=== PATIENT | male | born 1960 | race American Indian/Alaskan Native ===

== ENCOUNTER 2020-07-28 09:33 | Emergency (ER) | payer OTHER ==
[2020-07-28 09:57] VITALS: BP 138/87
--- NOTE | 2020-07-28 10:15 | Emergency Department Report ---
HPI - General Chief Complaint: Allergic Reaction Time Seen by Provider: 07/28/20 10:10 ED Past Medical Hx - Past Medical History Previous Medical History?: Yes Hx Hypertension: Yes - Surgical History Past Surgical History?: Yes Additional Surgical History: Broken left jaw - Social History Smoking Status: Never Smoker Substance Use Type: Alcohol ED Review of Systems ROS: Stated complaint: ALLERGIC REACTION Other details as noted in HPI Physical Exam - Physical Exam Vital Signs: Vital Signs 07/28/20 09:55 Temperature 99.1 F Pulse Rate 82 Respiratory 20 Rate Blood Pressure 138/87 O2 Sat by Pulse 98 Oximetry ED Course Vital Signs 07/28/20 09:55 Temperature 99.1 F Pulse Rate 82 Respiratory 20 Rate Blood Pressure 138/87 O2 Sat by Pulse 98 Oximetry Critical care attestation.: If time is entered above; I have spent that time in minutes in the direct care of this critically ill patient, excluding procedure time. ED Disposition Condition: Stable
[2020-07-28] MEDS ORDERED: methylPREDNISolone Sod Succinate 125 MG/2 ML INJ IM ONE (10:24)
--- NOTE | 2020-07-28 10:30 | Emergency Department Report ---
ED Allergic Reaction HPI - General Chief complaint: Allergic Reaction Stated complaint: ALLERGIC REACTION Time Seen by Provider: 07/28/20 10:10 Source: patient Mode of arrival: Ambulatory Limitations: No Limitations - History of Present Illness Initial Comments: 60 year old male with pmhx of HTN presents to ED with c/o allergic reaction. Patient states that 3 days ago he dyed his vu using a dye from [id number]. He states that he has never used that brand before. He states that about an hour or 2 after rinsing the dye he started having ir ritation to the skin beneath his vu. He states that the next day he decided to shave his vu off completely after which the irritation got worse and he just started developing increasing itching, redness, swelling to his vu area as well as his lips. He also reports yellowish clear drainage from the area mild drainage. He denies any pain he states that she has been itchy. He did take 2 Benadryl's today with some mild relief. He denies any tongue or throat swelling. He denies any difficulty breathing he denies any cough wheezing or any other symptoms at this time. MD Complaint: allergic reaction, facial swelling, other (facial rash ) -: Gradual (3 days ago ) Exposure: other (vu dye ) Symptoms: rash, itching, facial swelling, lip swelling. denies: difficulty swallowing, difficulty breathing, orolingual swelling, hoarseness, syncopy, dizziness, nausea, vomiting, abdominal pain Severity: mild, moderate Treatment Prior to Arrival: benadryl Previous Allergy History: none - Related Data Previous Rx's Medication Instructions Recorded Last Taken Type Bacitracin Zinc/Polymyxin B [Poly 1 applicatio TP TID #30 gm 07/28/20 Unknown Rx Bacitracin Ointment] predniSONE [Deltasone] 50 mg PO QDAY #5 tab 07/28/20 Unknown Rx Allergies Allergy/AdvReac Type Severity Reaction Status Date / Time No Known Allergies Allergy Unverified 07/28/20 09:51 ED Review of Systems ROS: Stated complaint: ALLERGIC REACTION Other details as noted in HPI Comment: All other systems reviewed and negative Constitutional: denies: chills, fever Eyes: denies: eye pain, eye discharge, vision change ENT: other (Lip swelling). denies: ear pain, throat pain, dental pain, hearing loss, epistaxis Respiratory: denies: cough, orthopnea, shortness of breath, SOB with exertion, SOB at rest, wheezing Cardiovascular: denies: chest pain, palpitations, dyspnea on exertion, edema, syncope, paroxysmal nocturnal dyspnea Skin: rash, pruritus ED Past Medical Hx - Past Medical History Previous Medical History?: Yes Hx Hypertension: Yes - Surgical History Past Surgical History?: Yes Additional Surgical History: Broken left jaw - Social History Smoking Status: Never Smoker Substance Use Type: Alcohol - Medications Home Medications: Home Medications Medication Instructions Recorded Confirmed Last Taken Type Bacitracin Zinc/Polymyxin B [Poly 1 applicatio TP TID #30 gm 07/28/20 Unknown Rx Bacitracin Ointment] predniSONE [Deltasone] 50 mg PO QDAY #5 tab 07/28/20 Unknown Rx ED Physical Exam - General Limitations: No Limitations General appearance: alert, in no apparent distress - Head Head exam: Present: atraumatic, normocephalic, normal inspection - Eye Eye exam: Present: normal appearance, PERRL Pupils: Present: normal accommodation - ENT ENT exam: Present: normal orophraynx, mucous membranes moist, other (Erythematous maculopapular rash around patient's mouth cheeks and underneath the chin mainly along his vu area with some mild blistering and crusting and with some mild swelling to his lips; no tenderness to palpation. No pus drainage or fluctuance noted.) ED Course Vital Signs 07/28/20 09:55 Temperature 99.1 F Pulse Rate 82 Respiratory 20 Rate Blood Pressure 138/87 O2 Sat by Pulse 98 Oximetry ED Medical Decision Making - Medical Decision Making Suspect pt has chemical contact dermatitis secondary to dye. He has not tongue or throat swelling. His airway is intact. He has no drooling, trismus or stridor on exam. He is not in any respiratory or pain distress. He is well appearing, and not toxic. His VS are stable Discussed suspected dx and tx plan with patient He expressed understanding of instructions and agreed with plan. Pt was stable at time of d/c. Critical care attestation.: If time is entered above; I have spent that time in minutes in the direct care of this critically ill patient, excluding procedure time. ED Disposition Clinical Impression: Chemical induced allergic contact dermatitis Disposition: TO HOME OR SELFCARE Is pt being admited?: No Does the pt Need Aspirin: No Condition: Stable Instructions: Contact Dermatitis, [id number] Additional Instructions: Take the prednisone and use the bacitracin ointment as prescribed. Continue taking the Benadryl. Clean your face with a gentle cleanser. No peroxide or alcohol. Follow-up closely with your primary care doctor next week. Return to the ER if your symptoms changes or worsens in any way. Prescriptions: predniSONE [Deltasone] 50 mg PO QDAY #5 tab Bacitracin Zinc/Polymyxin B [Poly Bacitracin Ointment] 1 applicatio TP TID #30 gm Referrals: PEARL FRANCO MD [Staff Physician] - 3-5 Days Forms: Work/School Release Form(ED) Time of Disposition: 10:34
== END 2020-07-28 11:00 | disposition home or self-care (01) ==
LOC: ED 09:33
DX: L23.4 Allergic contact dermatitis due to dyes (principal); I10 Essential (primary) hypertension; Z72.89 Other problems related to lifestyle; Z98.890 Other specified postprocedural states; Z79.899 Other long term (current) drug therapy
CPT/HCPCS: 96372; 99282; J2930

== ENCOUNTER 2020-10-01 13:53 | Emergency (ER) | payer OTHER ==
[2020-10-01 16:01] VITALS: BP 142/91
--- NOTE | 2020-10-01 18:02 | Emergency Department Report ---
- General Chief Complaint: Dyspnea/Respdistress Stated Complaint: REACTION TO COVID SHOT Time Seen by Provider: 10/01/20 17:24 Source: patient Mode of arrival: Ambulatory Limitations: No Limitations - History of Present Illness Initial Comments: Patient is a 60-year-old male presents emergency room with complaints of URI symptoms that began on 09/25/2020. Patient states he got his first dose of the Covid vaccine on 09/23/2020. He reports 2 days later he began having chills, hea dache, fever, fatigue, cough, shortness of breath, diarrhea. He denies any vomiting, chest pain, leg swelling, abdominal pain. Past medical history of hypertension. No allergies to medications. He is a non-smoker. 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 No allergies to medicines. - Related Data Previous Rx's Medication Instructions Recorded Last Taken Type Bacitracin Zinc/Polymyxin B [Poly 1 applicatio TP TID #30 gm 07/28/20 Unknown Rx Bacitracin Ointment] predniSONE [Deltasone] 50 mg PO QDAY #5 tab 07/28/20 Unknown Rx Azithromycin [Zithromax TAB] 250 mg PO QDAY 5 Days #6 tablet 10/01/20 Unknown Rx Benzonatate [Tessalon Perles] 100 mg PO Q8HR PRN #12 capsule 10/01/20 Unknown Rx guaiFENesin ER [Mucinex ER] 600 mg PO Q12H #14 tablet.er 10/01/20 Unknown Rx Allergies Allergy/AdvReac Type Severity Reaction Status Date / Time No Known Allergies Allergy Unverified 07/28/20 09:51 ED Review of Systems ROS: Stated complaint: REACTION TO COVID SHOT Other details as noted in HPI Comment: All other systems reviewed and negative ED Past Medical Hx - Past Medical History Previous Medical History?: Yes Hx Hypertension: Yes - Surgical History Past Surgical History?: Yes Additional Surgical History: Broken left jaw - Social History Smoking Status: Never Smoker Substance Use Type: Alcohol - Medications Home Medications: Home Medications Medication Instructions Recorded Confirmed Last Taken Type Bacitracin Zinc/Polymyxin B [Poly 1 applicatio TP TID #30 gm 07/28/20 Unknown Rx Bacitracin Ointment] predniSONE [Deltasone] 50 mg PO QDAY #5 tab 07/28/20 Unknown Rx Azithromycin [Zithromax TAB] 250 mg PO QDAY 5 Days #6 tablet 10/01/20 Unknown Rx Benzonatate [Tessalon Perles] 100 mg PO Q8HR PRN #12 capsule 10/01/20 Unknown Rx guaiFENesin ER [Mucinex ER] 600 mg PO Q12H #14 tablet.er 10/01/20 Unknown Rx ED Physical Exam - General Limitations: No Limitations General appearance: alert, in no apparent distress - Head Head exam: Present: atraumatic, normocephalic - Eye Eye exam: Present: normal appearance - ENT ENT exam: Present: mucous membranes moist - Respiratory Respiratory exam: Present: normal lung sounds bilaterally. Absent: respiratory distress, wheezes, rales, rhonchi, stridor, chest wall tenderness, accessory muscle use, decreased breath sounds, prolonged expiratory - Cardiovascular Cardiovascular Exam: Present: regular rate, normal rhythm, normal heart sounds. Absent: systolic murmur, diastolic murmur, rubs, gallop - Neurological Exam Neurological exam: Present: alert, oriented X3 - Psychiatric Psychiatric exam: Present: normal affect, normal mood - Skin Skin exam: Present: warm, dry, intact ED Course Vital Signs 10/01/20 15:59 Temperature 99.6 F Pulse Rate 103 H Respiratory 22 Rate Blood Pressure 142/91 O2 Sat by Pulse 96 Oximetry ED Medical Decision Making - Lab Data Result diagrams: 10/01/20 19:00 10/01/20 19:00 Lab Results 10/01/20 10/01/20 Range/Units 19:00 19:00 WBC 2.2 L (4.5-11.0) K/mm3 RBC 5.55 H (3.65-5.03) M/mm3 Hgb 15.6 H (11.8-15.2) gm/dl Hct 47.6 H (35.5-45.6) % MCV 86 (84-94) fl MCH 28 (28-32) pg MCHC 33 (32-34) % RDW 13.3 (13.2-15.2) % Plt Count 98 L (140-440) K/mm3 Add Manual Diff Complete Total Counted 100 Seg Neuts % (Manual) 59.0 (40.0-70.0) % Lymphocytes % (Manual) 27.0 (13.4-35.0) % Reactive Lymphs % (Man) 2.0 % Monocytes % (Manual) 12.0 H (0.0-7.3) % Nucleated RBC % Not Reportable Seg Neutrophils # Man 1.3 L (1.8-7.7) K/mm3 Band Neutrophils # 0.0 K/mm3 Lymphocytes # (Manual) 0.6 L (1.2-5.4) K/mm3 Abs React Lymphs (Man) 0.0 K/mm3 Monocytes # (Manual) 0.3 (0.0-0.8) K/mm3 Eosinophils # (Manual) 0.0 (0.0-0.4) K/mm3 Basophils # (Manual) 0.0 (0.0-0.1) K/mm3 Metamyelocytes # 0.0 K/mm3 Myelocytes # 0.0 K/mm3 Promyelocytes # 0.0 K/mm3 Blast Cells # 0.0 K/mm3 WBC Morphology Not Reportable Hypersegmented Neuts Not Reportable Hyposegmented Neuts Not Reportable Hypogranular Neuts Not Reportable Smudge Cells Not Reportable Toxic Granulation Not Reportable Toxic Vacuolation Not Reportable Dohle Bodies Not Reportable Pelger-Huet Anomaly Not Reportable Kiya Rods Not Reportable Platelet Estimate Consistent w auto Clumped Platelets Not Reportable Plt Clumps, EDTA Not Reportable Large Platelets Not Reportable Giant Platelets Not Reportable Platelet Satelliting Not Reportable Plt Morphology Comment Not Reportable RBC Morphology Normal Dimorphic RBCs Not Reportable Polychromasia Not Reportable Hypochromasia Not Reportable Poikilocytosis Not Reportable Anisocytosis Not Reportable Microcytosis Not Reportable Macrocytosis Not Reportable Spherocytes Not Reportable Pappenheimer Bodies Not Reportable Sickle Cells Not Reportable Target Cells Not Reportable Tear Drop Cells Not Reportable Ovalocytes Not Reportable Helmet Cells Not Reportable Dia-Petrey Bodies Not Reportable [place] Rings Not Reportable Marylou Cells Not Reportable Bite Cells Not Reportable Crenated Cell Not Reportable Elliptocytes Not Reportable Acanthocytes (Spur) Not Reportable Rouleaux Not Reportable Hemoglobin C Crystals Not Reportable Schistocytes Not Reportable Malaria parasites Not Reportable Mode Bodies Not Reportable Hem Pathologist Commnt No Sodium 131 L (137-145) mmol/L Potassium 4.0 (3.6-5.0) mmol/L Chloride 94.3 L (98-107) mmol/L Carbon Dioxide 20 L (22-30) mmol/L Anion Gap 21 mmol/L BUN 12 (9-20) mg/dL Creatinine 1.0 (0.8-1.3) mg/dL Estimated GFR > 60 ml/min BUN/Creatinine Ratio 12 % Glucose 93 (75-100) mg/dL Calcium 8.7 (8.4-10.2) mg/dL Total Bilirubin 0.70 (0.1-1.2) mg/dL AST 160 H (5-40) units/L ALT 86 H (7-56) units/L Alkaline Phosphatase 89 (35-129) units/L Total Protein 7.8 (6.3-8.2) g/dL Albumin 4.1 (3.9-5) g/dL Albumin/Globulin Ratio 1.1 % - Radiology Data Radiology results: report reviewed Ordering Physician: SELENA MARCANO Date of Service: 10/01/20 Procedure(s): XR chest routine 2V Accession Number(s): [id number] cc: SELENA MARCANO Fluoro Time In Minutes: CHEST 2 VIEWS INDICATION: cough, SOB. COMPARISON: None. FINDINGS: Support devices: None. Heart: Within normal limits. Lungs/Pleura: Increased interstitial markings at the mid/lower zones. No localized infiltrate. No significant pleural effusion. IMPRESSION: Suspect atypical infection. Signer Name: Ramone Melgar MD Signed: 10/01/2020 6:40 PM Workstation Name: [id number] Transcribed By: ES Dictated By: Ramone Melgar MD Electronically Authenticated By: Ramone Melgar MD Signed Date/Time: 10/01/201839 DD/ 38 TD/TT: - Medical Decision Making Patient is a 60-year-old male presents emergency room with complaints of URI symptoms that began on 09/25/2020. Patient states he got his first dose of the Covid vaccine on 09/23/2020. He reports 2 days later he began having chills, headache, fever, fatigue, cough, shortness of breath, diarrhea. He denies any vomiting, chest pain, leg swelling, abdominal pain. Past medical history of hypertension. No allergies to medications. He is a non-smoker. 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 No allergies to medicines. vss. on exam: Breath sounds are clear bilaterally, no wheezing, no rales, no rhonchi. CXR: IMPRESSION: Suspect atypical infection. Labs with leukopenia, thrombocytopenia, mild dehydration, elevated AST and ALT. Symptoms and examination appear most consistent with suspected COVID-19 infection. Patient has no hypoxia and is able to tolerate p.o. intake without difficulty. Discussed case with Dr. Soto, ER attending who advised to give patient azithromycin prescription and have patient follow-up outpatient. Discussed all results with patient and answer questions and discussed the importance of outpatient follow-up and strict return precautions. Advised patient Please take medication as prescribed. Please increase your fluid intake over the next several days. May take Tylenol as needed for fever or body aches. Follow-up with a primary care doctor for reexamination. Return to emergency room immediately for any new or worsening symptoms including but not limited to difficulty breathing, shortness of breath, severe chest pain, unable to tolerate by mouth intake, etc. Please self quarantine for 10 days from the onset of your symptoms. Please do not go out in public. If you are around others at home please wear a mask. If you need to cough or sneeze please do so in a napkin and immediately throw it away and immediately wash your hands. Wash your hands frequently. Wipe everything down. Recommend for you to get COVID-19 testing, may have this done at primary care doctor, health department, [facility],etc. recommend for you to get a pulse oximetry meter [id number] and return if your oxygen saturation is 93% or lower. Critical care attestation.: If time is entered above; I have spent that time in minutes in the direct care of this critically ill patient, excluding procedure time. ED Disposition Clinical Impression: Atypical pneumonia, Thrombocytopenia, Suspected COVID-19 virus infection Leukopenia Qualifiers: Leukopenia type: unspecified Qualified Code(s): D72.819 - Decreased white blood cell count, unspecified Disposition: DC-01 TO HOME OR SELFCARE Is pt being admited?: No Does the pt Need Aspirin: No Condition: Stable Instructions: COVID-19, Prevent the Spread of COVID-19 if You Are Sick - [facility] Additional Instructions: Please take medication as prescribed. Please increase your fluid intake over the next several days. May take Tylenol as needed for fever or body aches. Follow-up with a primary care doctor for reexamination. Return to emergency room immediately for any new or worsening symptoms including but not limited to difficulty breathing, shortness of breath, severe chest pain, unable to tolerate by mouth intake, etc. Please self quarantine for 10 days from the onset of your symptoms. Please do not go out in public. If you are around others at home please wear a mask. If you need to cough or sneeze please do so in a napkin and immediately throw it away and immediately wash your hands. Wash your hands frequently. Wipe everything down. Recommend for you to get COVID-19 testing, may have this done at primary care doctor, health department, [facility],etc. recommend for you to get a pulse oximetry meter [id number] and return if your oxygen saturation is 93% or lower. Prescriptions: guaiFENesin ER [Mucinex ER] 600 mg PO Q12H #14 tablet.er Benzonatate [Tessalon Perles] 100 mg PO Q8HR PRN #12 capsule PRN Reason: cough Azithromycin [Zithromax TAB] 250 mg PO QDAY 5 Days #6 tablet Referrals: [facility] [Provider Group] - 2-3 Days PEARL FRANCO MD [Staff Physician] - 2-3 Days Time of Disposition: 20:41 Print Language: SPANISH
--- NOTE | 2020-10-01 18:44 | XRay Report ---
CHEST 2 VIEWS INDICATION: cough, SOB. COMPARISON: None. FINDINGS: Support devices: None. Heart: Within normal limits. Lungs/Pleura: Increased interstitial markings at the mid/lower zones. No localized infiltrate. No s ignificant pleural effusion. IMPRESSION: Suspect atypical infection. Signer Name: Ramone Melgar MD Signed: 10/01/2020 6:40 PM Workstation Name: [id number]
[2020-10-01 20:11] LABS: Hematocrit 47.6 % (35.5-45.6); Hemoglobin 15.6 gm/dl (11.8-15.2); Mean Corpuscular HGB Conc 33 % (32-34); Mean Corpuscular Volume 86 fl (84-94); Red Blood Count 5.55 M/mm3 (3.65-5.03); Red Cell Distribution Width 13.3 % (13.2-15.2)
[2020-10-01 20:14] LABS: Platelet Count 98 K/mm3 (140-440)
[2020-10-01 20:28] LABS: Alanine Aminotransferase 86 units/L (7-56); Albumin 4.1 g/dL (3.9-5); BUN/Creatinine Ratio 12; Blood Urea Nitrogen 12 mg/dL (9-20); Calcium 8.7 mg/dL (8.4-10.2); Hemolysis Index 14
[2020-10-01] MEDS ORDERED: ACETAMINOPHEN 325 MG TAB PO ONE (21:12)
[2020-10-01 21:29] LABS: Total Cells Counted 100
[2020-10-01 21:30] LABS: Platelet Estimate Consistent w Auto; RBC Morphology Normal
== END 2020-10-01 22:04 | disposition home or self-care (01) ==
LOC: ED 13:53
DX: J18.9 Pneumonia, unspecified organism (principal); D69.6 Thrombocytopenia, unspecified; D72.819 Decreased white blood cell count, unspecified; I10 Essential (primary) hypertension; Z20.822 Contact with and (suspected) exposure to COVID-19; Z79.899 Other long term (current) drug therapy; Z98.890 Other specified postprocedural states
CPT/HCPCS: 36415; 71046; 80053; 85007; 85025

== ENCOUNTER 2020-10-09 17:54 | Inpatient (IN) | payer OTHER ==
--- NOTE | 2020-10-09 18:54 | Event Note ---
ED Screening Note Date of service: 10/09/20 Time: 18:50 ED Screening Note: 60-year-old male with a past medical history of hypertension was brought to the ER today by EMS with complaints of shortness of breath. She was seen here on October 01, 2020 and was diagnosed with atypical pneumonia, thrombocytopenia, leukopenia and suspected COVID-19. EMS personnel reports that patient called today stating that he has been feeling generally fatigued, neurolyse weakness with increasing shortness of breath. Denies any fever since he was seen. He denies any associated chest pain. Patient states that he did not get a chance to get COVID-19 test after leaving the ER. EMS reports that on arrival patient had an O2 sat of 87% on room air. He was placed on 2 L nasal cannula which brought his O2 sat to 9 92%. He was given breathing treatments on route and O2 sat was 96% after treatment. He was found to be between 120 and 130. His blood pressure was 136/72. Blood sugar was 131. Other than the history of asthma patient denies any other significant past history. This initial assessment/diagnostic orders/clinical plan/treatment(s) is/are subject to change based on patients health status, clinical progression and re- assessment by fellow clinical providers in the ED. Further treatment and workup at subsequent clinical providers discretion. Patient/guardian urged not to elope from the ED as their condition may be serious if not clinically assessed and managed. Initial orders include: Dyspnea order set
--- NOTE | 2020-10-09 19:33 | XRay Report ---
. CHEST 2 VIEWS INDICATION / CLINICAL INFORMATION: Dyspnea. COMPARISON: 10/01/2020 FINDINGS: SUPPORT DEVICES: None. HEART / MEDIASTINUM: No significant abnormality. LUNGS / PLEURA: Significant interval worsening of patchy bilateral pulmonary opacities. ADDITIONAL FINDINGS: No significant additional findings. IMPRESSION: 1. Significant interval worsening of patchy bilateral pulmonary opacities. Signer Name: Tal Mora MD Signed: 10/09/2020 7:29 PM Workstation Name: [id number]
[2020-10-09] MEDS ORDERED: dexAMETHasone 20 MG/5 ML VIAL IV ONE (19:57)
[2020-10-09] MEDS ORDERED: SODIUM CHLORIDE 0.9% 1000 ML 1,000 ML IV ONE (19:58)
--- NOTE | 2020-10-09 20:02 | Emergency Department Report ---
ED Peds Dyspnea HPI - General Chief Complaint: Dyspnea/Respdistress Stated Complaint: GLADYS Source: patient Mode of arrival: Ambulatory Limitations: No Limitations - History of Present Illness Initial Comments: 60-year-old male with a past medical history of hypertension was brought to the ER today by EMS with complaints of shortness of breath. He was seen here on October 01, 2020 and was diagnosed with atypical pneumonia, thrombocytopenia, leukopenia and suspected COVID-19. EMS personnel reports that patient called today stating that he has been feeling generally fatigued, neurolyse weakness with increasing shortness of breath. Denies any fever since he was seen. He denies any associated chest pain. Patient states that he did not get a chance to get COVID-19 test after leaving the ER. Patient reports that he got the first Covid vaccine but never got the second vaccine as he stated he had side effects. EMS reports that on arrival patient had an O2 sat of 87% on room air. He was placed on 2 L nasal cannula which brought his O2 sat to 9 92%. He was given breathing treatments on route and O2 sat was 96% after treatment. He was found to be between 120 and 130. His blood pressure was 136/72. Blood sugar was 131. Patient reports a history of hypertension and prostate. Believes he is on losartan 100 mg daily and he takes another white pill that he is not sure of. MD Complaint: difficulty breathing Onset/Timin -: week(s) Fever: No Severity scale (0 -10): 9 Consistency: constant Associated Symptoms: cough - Related Data Home Medications Medication Instructions Recorded Confirmed Last Taken Losartan [Cozaar] 100 mg PO QHS 10/10/20 10/10/20 10/08/20 Tamsulosin [Flomax] 0.4 mg PO QHS 10/10/20 10/10/20 10/08/20 amLODIPine [Norvasc] 10 mg PO QHS 10/10/20 10/10/20 10/08/20 Allergies Allergy/AdvReac Type Severity Reaction Status Date / Time No Known Allergies Allergy Verified 10/10/20 02:19 ED Review of Systems ROS: Stated complaint: GLADYS Other details as noted in HPI Comment: All other systems reviewed and negative Pediatric Past Medical History - Surgeries & Procedures Additional Surgical History: Broken left jaw ED Peds Dyspnea EXAM - General Limitations: No Limitations - Head Head exam: Positive: atraumatic, normocephalic, normal inspection - Eye Eye Exam: Normal Apperance - ENT ENT exam: Positive: mucous membranes moist - Neck Neck exam: Positive: normal inspection, full ROM - Respiratory Respiratory Exam: Positive: Decreased Breath Sounds - Cardiovascular Cardiovascular Exam: Positive: tachycardia - GI/Abdominal GI/Abdominal exam: Positive: soft. Negative: distended, tenderness - Back Back exam: normal inspection, full ROM - Neurological Neurological Exam: Positive: Alert, Oriented X3, CN II-XII Intact - Psychiatric Psychiatric exam: Positive: normal affect, normal mood - Skin Skin exam: Positive: warm, dry, intact, normal color ED Course Vital Signs 10/09/20 10/09/20 10/09/20 18:51 19:54 20:00 Temperature 98.7 F Pulse Rate 129 H 120 H 117 H Respiratory 32 H 30 H Rate Blood Pressure 156/84 O2 Sat by Pulse 90 95 Oximetry 10/09/20 10/09/20 10/09/20 20:16 20:30 20:33 Temperature Pulse Rate 111 H 117 H Respiratory 34 H 16 Rate Blood Pressure O2 Sat by Pulse 95 90 94 Oximetry 10/09/20 10/09/20 10/09/20 20:45 21:01 21:15 Temperature Pulse Rate 114 H Respiratory 24 Rate Blood Pressure 123/87 130/78 130/78 O2 Sat by Pulse 92 91 95 Oximetry 10/09/20 10/09/20 10/09/20 21:31 21:45 22:01 Temperature Pulse Rate 110 H 107 H 109 H Respiratory 14 41 H 45 H Rate Blood Pressure 123/87 123/87 145/95 O2 Sat by Pulse 94 94 96 Oximetry 10/09/20 10/09/20 10/09/20 22:15 22:31 22:45 Temperature Pulse Rate 106 H 103 H 108 H Respiratory 18 16 30 H Rate Blood Pressure 145/95 111/65 111/65 O2 Sat by Pulse 99 96 94 Oximetry 10/09/20 10/09/20 10/09/20 23:01 23:15 23:31 Temperature Pulse Rate 97 H 104 H 100 H Respiratory 22 28 H 22 Rate Blood Pressure 115/64 115/64 111/65 O2 Sat by Pulse 98 93 97 Oximetry 10/09/20 10/10/20 10/10/20 23:45 00:01 00:15 Temperature Pulse Rate 101 H 98 H 99 H Respiratory 34 H 28 H 37 H Rate Blood Pressure 111/65 115/78 115/78 O2 Sat by Pulse 97 97 91 Oximetry 10/10/20 10/10/20 10/10/20 00:31 00:45 01:01 Temperature Pulse Rate 96 H 101 H 95 H Respiratory 25 H 42 H 22 Rate Blood Pressure 120/93 120/93 102/65 O2 Sat by Pulse 95 95 96 Oximetry 10/10/20 10/10/20 10/10/20 01:40 01:50 02:00 Temperature Pulse Rate 95 H 93 H Respiratory 18 15 Rate Blood Pressure 137/85 118/72 O2 Sat by Pulse 98 95 96 Oximetry 10/10/20 10/10/20 02:11 02:21 Temperature Pulse Rate 94 H 94 H Respiratory 30 H 15 Rate Blood Pressure 137/85 137/85 O2 Sat by Pulse 92 93 Oximetry - Consultations Consultation #1: 10/09/20 20:[address] Joy hospitalist regarding patient needing to be admitted for Covid and outpatient failure. Hypoxia. ED Medical Decision Making - Lab Data Result diagrams: 10/09/20 19:41 10/09/20 20:13 - EKG Data Rate: tachycardia - Radiology Data Radiology results: report reviewed [facility] [address] [place] [address] XRay Report Signed Patient: MACY GROVES MR#: [id number] 0 : 1960 Acct:[id number] Age/Sex: 60 / M ADM Date: 10/09/20 Loc: ED Attending Dr: Ordering Physician: ANNI AGUIRRE Date of Service: 10/09/20 Procedure(s): XR chest routine 2V Accession Number(s): [id number] cc: ANNI AGUIRRE Fluoro Time In Minutes: . CHEST 2 VIEWS INDICATION / CLINICAL INFORMATION: Dyspnea. COMPARISON: 10/01/2020 FINDINGS: SUPPORT DEVICES: None. HEART / MEDIASTINUM: No significant abnormality. LUNGS / PLEURA: Significant interval worsening of patchy bilateral pulmonary opacities. ADDITIONAL FINDINGS: No significant additional findings. IMPRESSION: 1. Significant interval worsening of patchy bilateral pulmonary opacities. Signer Name: Tal Mora MD Signed: 10/09/2020 7:29 PM Workstation Name: [id number] Transcribed By: PAO Dictated By: Tal Mora MD Electronically Authenticated By: Tal Mora MD Signed Date/Time: 10/09/201928 DD/ 28 TD/TT: Print Cancel - Medical Decision Making 60-year-old male with a past medical history of hypertension was brought to the ER today by EMS with complaints of shortness of breath. He was seen here on October 01, 2020 and was diagnosed with atypical pneumonia, thrombocytopenia, leukopenia and suspected COVID-19. EMS personnel reports that patient called today stating that he has been feeling generally fatigued, neurolyse weakness with increasing shortness of breath. Denies any fever since he was seen. He denies any associated chest pain. Patient states that he did not get a chance to get COVID-19 test after leaving the ER. Patient reports that he got the first Covid vaccine but never got the second vaccine as he stated he had side effects. EMS reports that on arrival patient had an O2 sat of 87% on room air. He was placed on 2 L nasal cannula which brought his O2 sat to 9 92%. He was given breathing treatments on route and O2 sat was 96% after treatment. He was found to be between 120 and 130. His blood pressure was 136/72. Blood sugar was 131. Patient reports a history of hypertension and prostate. Believes he is on losartan 100 mg daily and he takes another white pill that he is not sure of. Patient's primary care provider is Dr. Huber Roberts. CBC CMP chest x-ray magnesium phosphorus, Covid protocol, INT, normal saline, dexamethasone 10 mg IV, oxygen via nonrebreather 15 L, called respiratory for high flow - Differential Diagnosis SIRCov, pneumonia Critical Care Time: Yes (35) Critical care attestation.: If time is entered above; I have spent that time in minutes in the direct care of this critically ill patient, excluding procedure time. ED Disposition Clinical Impression: Suspected COVID-19 virus infection, Atypical pneumonia, Thrombocytopenia, Acute hypoxemic respiratory failure, Acidosis, Pneumonia Disposition: OP ADMIT IP TO THIS HOSP Is pt being admited?: Yes Does the pt Need Aspirin: Yes Condition: Stable
[2020-10-09 20:07] LABS: Hematocrit 40.8 % (35.5-45.6); Hemoglobin 13.3 gm/dl (11.8-15.2); Mean Corpuscular HGB Conc 33 % (32-34); Mean Corpuscular Volume 86 fl (84-94); Platelet Count 315 K/mm3 (140-440); Red Blood Count 4.75 M/mm3 (3.65-5.03); Red Cell Distribution Width 12.9 % (13.2-15.2)
[2020-10-09 20:20] LABS: Alanine Aminotransferase 53 units/L (7-56); Albumin 3.3 g/dL (3.9-5); BUN/Creatinine Ratio 21; Blood Urea Nitrogen 23 mg/dL (9-20); Calcium 8.6 mg/dL (8.4-10.2); Hemolysis Index 1
[2020-10-09 20:40] LABS: Band Neutrophils # (Manual) 0.2 K/mm3; Total Cells Counted 100
[2020-10-09 20:41] LABS: Platelet Estimate Consistent w Auto; RBC Morphology Normal; Toxic Granulation 1+
--- NOTE | 2020-10-09 21:05 | History and Physical Report ---
History of Present Illness Chief complaint: It is hard to breathe History of present illness: 60 YO Male with HTN, Obesity Hypoventilation Syndrome presents to ED for evaluation. Patient reports "I am short of breath". Patient states that he has experienced shortness of breath over the past 2 days with persistently worsening symptoms over the past 1 day. Patient acknowledges fatigue, malaise, decreased exercise tolerance, body aches, dry cough. EMS was notified and upon arrival the patient was found to be in distress and subsequently transported to [facility] for further care and evaluation of the aforementioned symptoms. The patient was seen and evaluated in the emergency department. All lab and image studies reviewed. Patient was found to have a pulse oximetry of 87% on room air which is consistent with acute hypoxemic respiratory failure. Chest x-ray revealed bilateral pneumonia. The patient was found to have acidosis as well. The patient was admitted to [facility] and initiated on pneumonia protocol as well as coronavirus protocol. Patient denies fever chills chest pain, palpitations, skin rash, recent ill contacts, or known exposure to COVID-19. No prior admission for review. All medication listed at time of admission has been reconciled. Patient reports receiving 1 of 2 doses of the coronavirus vaccine. Past History Past Medical History: hypertension, other (See HPI) Past Surgical History: No surgical history, Other (Reviewed) Social history: single. denies: smoking, alcohol abuse Family history: hypertension Medications and Allergies Allergies Allergy/AdvReac Type Severity Reaction Status Date / Time No Known Allergies Allergy Verified 10/09/20 18:47 Home Medications Medication Instructions Recorded Confirmed Last Taken Type Bacitracin Zinc/Polymyxin B [Poly 1 applicatio TP TID #30 gm 07/28/20 Unknown Rx Bacitracin Ointment] predniSONE [Deltasone] 50 mg PO QDAY #5 tab 07/28/20 Unknown Rx Azithromycin [Zithromax TAB] 250 mg PO QDAY 5 Days #6 tablet 10/01/20 Unknown Rx Benzonatate [Tessalon Perles] 100 mg PO Q8HR PRN #12 capsule 10/01/20 Unknown Rx guaiFENesin ER [Mucinex ER] 600 mg PO Q12H #14 tablet.er 10/01/20 Unknown Rx Review of Systems Constitutional: fatigue, weakness, malaise, no weight loss, no weight gain, no fever Ears, nose, mouth and throat: no ear discharge, no decreased hearing, no nose pain, no nasal discharge Cardiovascular: no chest pain, no orthopnea, no palpitations, no edema Respiratory: cough, shortness of breath, no excessive sputum, no wheezing Gastrointestinal: no abdominal pain, no vomiting, no constipation Genitourinary Male: no hematuria, no flank pain, no discharge, no nocturia Rectal: no pain, no incontinence, no bleeding Musculoskeletal: no neck stiffness, no neck pain, no shooting arm pain, no arm numbness/tingling, no low back pain Neurological: no head injury, no weakness, no numbness, no syncope Psychiatric: no anxiety, no sleep disturbances, no insomnia, no hypersomnia Endocrine: no cold intolerance, no polyphagia, no polyuria, no excessive sweating, no flushing Hematologic/Lymphatic: no easy bleeding Allergic/Immunologic: no urticaria, no allergic rhinitis Exam - Constitutional Vitals: Temp Pulse Resp BP Pulse Ox 98.7 F 129 H 32 H 156/84 94 10/09/20 18:51 10/09/20 18:51 10/09/20 18:51 10/09/20 18:51 10/09/20 20:33 General appearance: Present: mild distress, obese - EENT Eyes: Present: PERRL ENT: hearing intact, clear oral mucosa - Neck Neck: Present: supple, normal ROM - Respiratory Respiratory effort: labored, accessory muscle use, stridor Respiratory: bilateral: diminished, rhonchi - Cardiovascular Heart Sounds: Present: S1 & S2. Absent: rub, click - Extremities Extremities: pulses symmetrical, No edema Peripheral Pulses: within normal limits - Abdominal General gastrointestinal: Present: soft, non-tender, non-distended, normal bowel sounds Male genitourinary: Present: normal - Integumentary Integumentary: Present: clear, warm, dry - Musculoskeletal Musculoskeletal: gait normal, strength equal bilaterally - Psychiatric Psychiatric: appropriate mood/affect, intact judgment & insight - Neurologic Neurologic: CNII-XII intact, moves all extremities Results - Labs CBC & Chem 7: 10/09/20 19:41 10/09/20 20:13 Labs: Abnormal lab results 10/09/20 10/09/20 Range/Units 19:41 19:41 RDW 12.9 L (13.2-15.2) % Seg Neuts % (Manual) 80.0 H (40.0-70.0) % Lymphocytes % (Manual) 10.0 L (13.4-35.0) % Lymphocytes # (Manual) 0.9 L (1.2-5.4) K/mm3 Sodium 131 L (137-145) mmol/L Chloride 96.2 L (98-107) mmol/L Carbon Dioxide 19 L (22-30) mmol/L BUN 23 H (9-20) mg/dL Glucose 125 H (75-100) mg/dL Magnesium 2.50 H (1.7-2.3) mg/dL Total Bilirubin 2.90 H (0.1-1.2) mg/dL AST 57 H (5-40) units/L Albumin 3.3 L (3.9-5) g/dL Assessment and Plan - Patient Problems (1) Acute hypoxemic respiratory failure Status: Acute Plan to address problem: Supplemental oxygen, pulse oximetry, nebulizer therapy, chest x-ray, proposition while in bed, pulmonary toilet (2) Pneumonia Status: Acute Plan to address problem: Pneumonia protocol: Chest x-ray, CBC, CMP, IV antibiotic therapy, supplemental oxygen, pulse oximetry, blood culture. (3) Acidosis Status: Acute Plan to address problem: BMP, repeat BMP in a.m., supportive care. (4) Suspected COVID-19 virus infection Status: Acute Plan to address problem: Coronavirus protocol: IV antibiotic therapy, IV steroid therapy, supplemental oxygen, pulse oximetry, nebulizer therapy, vitamin C therapy, vitamin D therapy, zinc therapy, prone positioning while in bed, infectious disease service consulted in ED. High flow submental oxygen. (5) Thrombocytopenia Status: Acute Plan to address problem: Supportive care, repeat CBC in a.m., (6) DVT prophylaxis Status: Acute Plan to address problem: SCDs bilateral lower extremities while in bed, prophylactic anticoagulation
[2020-10-09] MEDS ORDERED: HYDROmorphone 1 MG/1 ML INJ IV PRN (21:07)
[2020-10-09] MEDS ORDERED: oxyCODONE /ACETAMINOPHEN 5-325MG TAB PO PRN (21:07)
[2020-10-09] MEDS ORDERED: ACETAMINOPHEN 325 MG TAB PO PRN (21:07)
[2020-10-09] MEDS ORDERED: ALBUTEROL 2.5 MG/3 ML NEBU IH PRN (21:07)
[2020-10-09 21:11] LABS: C-Reactive Protein 20.8 mg/dL (0.00-1.30)
[2020-10-10 05:21] LABS: Hematocrit 37.2 % (35.5-45.6); Hemoglobin 12.5 gm/dl (11.8-15.2); Mean Corpuscular HGB Conc 34 % (32-34); Mean Corpuscular Volume 85 fl (84-94); Red Blood Count 4.36 M/mm3 (3.65-5.03); Red Cell Distribution Width 12.7 % (13.2-15.2)
[2020-10-10 05:22] LABS: Platelet Count 259 K/mm3 (140-440)
[2020-10-10 05:37] LABS: Alanine Aminotransferase 45 units/L (7-56); BUN/Creatinine Ratio 24; Blood Urea Nitrogen 19 mg/dL (9-20); Calcium 8.7 mg/dL (8.4-10.2); Hemolysis Index 6
[2020-10-10 07:01] LABS: Total Cells Counted 100
[2020-10-10 07:02] LABS: Large Platelets Few
[2020-10-10 07:03] LABS: Platelet Estimate Consistent w Auto; Toxic Granulation Rare
--- NOTE | 2020-10-10 11:09 | Electrocardiograph Report ---
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
--- NOTE | 2020-10-10 11:43 | Progress Note ---
Assessment and Plan Assessment and plan: Acute hypoxemic respiratory failure Bilateral pneumonia. Sepsis. Patient meets criteria given the tachycardia, tachypnea and diagnosis of bilateral pneumonia. Suspected COVID-19 infection. Thrombocytopenia. 10/10/2020. Patient currently with high flow nasal cannula with oxygen flow rate of 40 and FiO2 90%. ID consulted. Await COVID-19 testing. Start dexamethasone 6 mg IV daily. Patient may need higher dose given obesity. Await ID recommendations regarding remdesivir as well as Covid testing. Patient with significantly elevated inflammatory markers D-dimer greater than 10,000, ferritin 8000, LDH 1500 and CRP 20. Check CTA of chest when patient medically stable. Start treatment dose of Lovenox given the extremely high D-dimer. Hold on IV antibiotics given the normal procalcitonin. History Interval history: No new issues overnight. Hospitalist Physical - Constitutional Vitals: Temp Pulse Resp BP Pulse Ox 97.0 F L 93 H 20 154/99 91 10/10/20 08:00 10/10/20 11:24 10/10/20 11:00 10/10/20 11:00 10/10/20 11:00 General appearance: Present: mild distress, obese - EENT Eyes: Present: PERRL, EOM intact ENT: hearing intact, clear oral mucosa, dentition normal - Neck Neck: Present: supple, normal ROM - Respiratory Respiratory effort: normal Respiratory: bilateral: CTA - Cardiovascular Rhythm: regular Heart Sounds: Present: S1 & S2. Absent: gallop, rub - Extremities Extremities: no ischemia, No edema, Full ROM - Abdominal General gastrointestinal: soft, non-tender, non-distended, normal bowel sounds - Integumentary Integumentary: Present: clear, warm, dry - Neurologic Neurologic: CNII-XII intact, moves all extremities HEART Score - HEART Score Troponin: Troponin T < 0.010 ng/mL (0.00-0.029) 10/09/20 19:41 Results - Labs CBC & Chem 7: 10/10/20 04:48 10/10/20 04:48 Labs: Laboratory Last Values WBC 6.8 K/mm3 (4.5-11.0) 10/10/20 04:48 RBC 4.36 M/mm3 (3.65-5.03) 10/10/20 04:48 Hgb 12.5 gm/dl (11.8-15.2) 10/10/20 04:48 Hct 37.2 % (35.5-45.6) 10/10/20 04:48 MCV 85 fl (84-94) 10/10/20 04:48 MCH 29 pg (28-32) 10/10/20 04:48 MCHC 34 % (32-34) 10/10/20 04:48 RDW 12.7 % (13.2-15.2) L 10/10/20 04:48 Plt Count 259 K/mm3 (140-440) 10/10/20 04:48 Add Manual Diff Complete 10/10/20 04:48 Total Counted 100 10/10/20 04:48 Seg Neuts % (Manual) 80.0 % (40.0-70.0) H 10/09/20 19:41 Band Neutrophils % 2.0 % 10/09/20 19:41 Lymphocytes % (Manual) 6.0 % (13.4-35.0) L 10/10/20 04:48 Monocytes % (Manual) 2.0 % (0.0-7.3) 10/10/20 04:48 Metamyelocytes % 1.0 % 10/09/20 19:41 Nucleated RBC % Not Reportable 10/10/20 04:48 Seg Neutrophils # Man 6.3 K/mm3 (1.8-7.7) 10/10/20 04:48 Band Neutrophils # 0.0 K/mm3 10/10/20 04:48 Lymphocytes # (Manual) 0.4 K/mm3 (1.2-5.4) L 10/10/20 04:48 Abs React Lymphs (Man) 0.0 K/mm3 10/10/20 04:48 Monocytes # (Manual) 0.1 K/mm3 (0.0-0.8) 10/10/20 04:48 Eosinophils # (Manual) 0.0 K/mm3 (0.0-0.4) 10/10/20 04:48 Basophils # (Manual) 0.0 K/mm3 (0.0-0.1) 10/10/20 04:48 Metamyelocytes # 0.0 K/mm3 10/10/20 04:48 Myelocytes # 0.0 K/mm3 10/10/20 04:48 Promyelocytes # 0.0 K/mm3 10/10/20 04:48 Blast Cells # 0.0 K/mm3 10/10/20 04:48 WBC Morphology Not Reportable 10/10/20 04:48 Hypersegmented Neuts Not Reportable 10/10/20 04:48 Hyposegmented Neuts Not Reportable 10/10/20 04:48 Hypogranular Neuts Not Reportable 10/10/20 04:48 Smudge Cells Not Reportable 10/10/20 04:48 Toxic Granulation Rare 10/10/20 04:48 Toxic Vacuolation Not Reportable 10/10/20 04:48 Dohle Bodies Not Reportable 10/10/20 04:48 Pelger-Huet Anomaly Not Reportable 10/10/20 04:48 Kiya Rods Not Reportable 10/10/20 04:48 Platelet Estimate Consistent w auto 10/10/20 04:48 Clumped Platelets Not Reportable 10/10/20 04:48 Plt Clumps, EDTA Not Reportable 10/10/20 04:48 Large Platelets Few 10/10/20 04:48 Giant Platelets Not Reportable 10/10/20 04:48 Platelet Satelliting Not Reportable 10/10/20 04:48 Plt Morphology Comment Not Reportable 10/10/20 04:48 RBC Morphology Not Reportable 10/10/20 04:48 Dimorphic RBCs Not Reportable 10/10/20 04:48 Polychromasia Not Reportable 10/10/20 04:48 Hypochromasia Not Reportable 10/10/20 04:48 Poikilocytosis Not Reportable 10/10/20 04:48 Anisocytosis Not Reportable 10/10/20 04:48 Microcytosis Not Reportable 10/10/20 04:48 Macrocytosis Not Reportable 10/10/20 04:48 Spherocytes Not Reportable 10/10/20 04:48 Pappenheimer Bodies Not Reportable 10/10/20 04:48 Sickle Cells Not Reportable 10/10/20 04:48 Target Cells Not Reportable 10/10/20 04:48 Tear Drop Cells Not Reportable 10/10/20 04:48 Ovalocytes Not Reportable 10/10/20 04:48 Helmet Cells Not Reportable 10/10/20 04:48 [place] Bodies Not Reportable 10/10/20 04:48 [place] Rings Not Reportable 10/10/20 04:48 [place] Cells Not Reportable 10/10/20 04:48 Bite Cells Not Reportable 10/10/20 04:48 Crenated Cell Not Reportable 10/10/20 04:48 Elliptocytes Not Reportable 10/10/20 04:48 Acanthocytes (Spur) Not Reportable 10/10/20 04:48 Rouleaux Not Reportable 10/10/20 04:48 Hemoglobin C Crystals Not Reportable 10/10/20 04:48 Schistocytes Not Reportable 10/10/20 04:48 Malaria parasites Not Reportable 10/10/20 04:48 Mode Bodies Not Reportable 10/10/20 04:48 Hem Pathologist Commnt No 10/10/20 04:48 D-Dimer > 65951 ng/mlDDU (0-234) H 10/09/20 20:13 Sodium 132 mmol/L (137-145) L 10/10/20 04:48 Potassium 4.4 mmol/L (3.6-5.0) 10/10/20 04:48 Chloride 97.5 mmol/L (98-107) L 10/10/20 04:48 Carbon Dioxide 21 mmol/L (22-30) L 10/10/20 04:48 Anion Gap 18 mmol/L 10/10/20 04:48 BUN 19 mg/dL (9-20) 10/10/20 04:48 Creatinine 0.8 mg/dL (0.8-1.3) 10/10/20 04:48 Estimated GFR > 60 ml/min 10/10/20 04:48 BUN/Creatinine Ratio 24 % 10/10/20 04:48 Glucose 210 mg/dL (75-100) H 10/10/20 04:48 Calcium 8.7 mg/dL (8.4-10.2) 10/10/20 04:48 Magnesium 2.50 mg/dL (1.7-2.3) H 10/09/20 19:41 Ferritin 8223.0 ng/mL (30.0-300.0) H 10/09/20 20:13 Total Bilirubin 2.00 mg/dL (0.1-1.2) H 10/10/20 04:48 AST 51 units/L (5-40) H 10/10/20 04:48 ALT 45 units/L (7-56) 10/10/20 04:48 Alkaline Phosphatase 70 units/L (35-129) 10/10/20 04:48 Lactate Dehydrogenase 1517 units/L (91-180) H 10/09/20 20:13 Troponin T < 0.010 ng/mL (0.00-0.029) 10/09/20 19:41 C-Reactive Protein 20.80 mg/dL (0.00-1.30) H 10/09/20 20:13 Total Protein 7.1 g/dL (6.3-8.2) 10/10/20 04:48 Albumin 3.0 g/dL (3.9-5) L 10/10/20 04:48 Albumin/Globulin Ratio 0.7 % 10/10/20 04:48 Procalcitonin 0.49 ng/mL (<0.15) 10/09/20 20:13 [place]a/IV: Voiding Method Urinal Active Medications - Current Medications Current Medications: Generic Name Dose Route Start Last Admin Trade Name Freq PRN Reason Stop Dose Admin Acetaminophen 650 mg 10/09/20 21:07 Acetaminophen 325 Mg Tab PO Q6H PRN Pain MILD(1-3)/Fever >100.5/NAVA Albuterol 2.5 mg 10/09/20 21:07 Albuterol 2.5 Mg/3 Ml Nebu IH Q3HRT PRN Shortness Of Breath Hydromorphone HCl 0.5 mg 10/09/20 21:07 Hydromorphone 1 Mg/1 Ml Inj IV Q12H PRN Pain , Severe (7-10) Oxycodone/Acetaminophen 1 tab 10/09/20 21:07 Oxycodone /Acetaminophen 5-325mg Tab PO Q12H PRN Pain, Moderate (4-6) Pneumococcal Polyvalent Vaccine 0.5 ml 10/10/20 12:00 Pneumococcal 23 Valent 0.5 Ml Vial IM 10/10/20 12:01 .ONCE ONE Sodium Chloride 10 ml 10/09/20 22:00 10/10/20 09:05 Sodium Chloride 0.9% 10 Ml Flush Syringe IV 10 ml BID LENCHO Administration Sodium Chloride 10 ml 10/09/20 21:07 Sodium Chloride 0.9% 10 Ml Flush Syringe IV PRN PRN LINE FLUSH
[2020-10-10] MEDS ORDERED: PNEUMOCOCCAL 23 Valent 0.5 ML VIAL IM ONE (12:00)
--- NOTE | 2020-10-10 12:16 | Consultation ---
History of Present Illness - Reason for Consult Consult date: 10/10/20 - History of Present Illness 60 yo M PMHx HTN, obesity admitted to the hospital complaining of shortness of breath. This began approximately 2 days prior to admission and was progressive since onset. He complains of associated cough and myalgias. Found to be 87% on room air. Afebrile since admission, normal white count, normal renal function. COVID PCR pending. Procalcitonin slightly elevated. Imaging personally reviewed: CXR: patchy bilateral infiltrates Review of systems: Deferred to reduce to the risk of transmission of COVID-19 Past History Past Medical History: hypertension, other (See HPI) Past Surgical History: No surgical history, Other (Reviewed) Social history: single. denies: smoking, alcohol abuse Family history: hypertension Medications and Allergies Allergies Allergy/AdvReac Type Severity Reaction Status Date / Time No Known Allergies Allergy Verified 10/10/20 02:19 Home Medications Medication Instructions Recorded Confirmed Last Taken Type Losartan [Cozaar] 100 mg PO QHS 10/10/20 10/10/20 10/08/20 History Tamsulosin [Flomax] 0.4 mg PO QHS 10/10/20 10/10/20 10/08/20 History amLODIPine [Norvasc] 10 mg PO QHS 10/10/20 10/10/20 10/08/20 History Active Meds: Active Medications Acetaminophen (Acetaminophen 325 Mg Tab) 650 mg PO Q6H PRN PRN Reason: Pain MILD(1-3)/Fever >100.5/NAVA Albuterol (Albuterol 2.5 Mg/3 Ml Nebu) 2.5 mg IH Q3HRT PRN PRN Reason: Shortness Of Breath Dexamethasone (Dexamethasone 4 Mg/Ml Vial) 8 mg IV DAILY [facility] Enoxaparin Sodium (Enoxaparin 100 Mg/1 Ml Inj) 100 mg SUB-Q Q12HR [facility]; Protocol Hydromorphone HCl (Hydromorphone 1 Mg/1 Ml Inj) 0.5 mg IV Q12H PRN PRN Reason: Pain , Severe (7-10) Oxycodone/Acetaminophen (Oxycodone /Acetaminophen 5-325mg Tab) 1 tab PO Q12H PRN PRN Reason: Pain, Moderate (4-6) Pneumococcal Polyvalent Vaccine (Pneumococcal 23 Valent 0.5 Ml Vial) 0.5 ml IM .ONCE ONE Stop: 10/10/20 12:01 Sodium Chloride (Sodium Chloride 0.9% 10 Ml Flush Syringe) 10 ml IV BID [facility] Last Admin: 10/10/20 09:05 Dose: 10 ml Documented by: Sodium Chloride (Sodium Chloride 0.9% 10 Ml Flush Syringe) 10 ml IV PRN PRN PRN Reason: LINE FLUSH Physical Examination - Physical Exam Narrative exam: physical exam deferred to reduce risk of transmission of COVID-19. Please refer to primary team's note. - Constitutional Vitals: Vital Signs Temp Pulse Resp BP Pulse Ox 97.0 F L 93 H 20 154/99 91 10/10/20 08:00 10/10/20 11:24 10/10/20 11:00 10/10/20 11:00 10/10/20 11:00 Temperature -Last 24 Hours Temperature 97.0 F Temperature 98.2 F Temperature 97.9 F Temperature 98.7 F Results - Labs CBC & Chem 7: 10/10/20 04:48 10/10/20 04:48 Labs: Abnormal lab results 10/09/20 10/09/20 10/09/20 Range/Units 19:41 19:41 20:13 RDW 12.9 L (13.2-15.2) % Seg Neuts % (Manual) 80.0 H (40.0-70.0) % Lymphocytes % (Manual) 10.0 L (13.4-35.0) % Lymphocytes # (Manual) 0.9 L (1.2-5.4) K/mm3 D-Dimer > 06046 H (0-234) ng/mlDDU Sodium 131 L (137-145) mmol/L Chloride 96.2 L (98-107) mmol/L Carbon Dioxide 19 L (22-30) mmol/L BUN 23 H (9-20) mg/dL Glucose 125 H (75-100) mg/dL Magnesium 2.50 H (1.7-2.3) mg/dL Ferritin (30.0-300.0) ng/mL Total Bilirubin 2.90 H (0.1-1.2) mg/dL AST 57 H (5-40) units/L Lactate Dehydrogenase (91-180) units/L C-Reactive Protein (0.00-1.30) mg/dL Albumin 3.3 L (3.9-5) g/dL 10/09/20 10/09/20 10/10/20 Range/Units 20:13 20:13 04:48 RDW 12.7 L (13.2-15.2) % Seg Neuts % (Manual) (40.0-70.0) % Lymphocytes % (Manual) 6.0 L (13.4-35.0) % Lymphocytes # (Manual) 0.4 L (1.2-5.4) K/mm3 D-Dimer (0-234) ng/mlDDU Sodium (137-145) mmol/L Chloride (98-107) mmol/L Carbon Dioxide (22-30) mmol/L BUN (9-20) mg/dL Glucose 118 H (75-100) mg/dL Magnesium (1.7-2.3) mg/dL Ferritin 8223.0 H (30.0-300.0) ng/mL Total Bilirubin (0.1-1.2) mg/dL AST (5-40) units/L Lactate Dehydrogenase 1517 H (91-180) units/L C-Reactive Protein 20.80 H (0.00-1.30) mg/dL Albumin (3.9-5) g/dL 10/10/20 Range/Units 04:48 RDW (13.2-15.2) % Seg Neuts % (Manual) (40.0-70.0) % Lymphocytes % (Manual) (13.4-35.0) % Lymphocytes # (Manual) (1.2-5.4) K/mm3 D-Dimer (0-234) ng/mlDDU Sodium 132 L (137-145) mmol/L Chloride 97.5 L (98-107) mmol/L Carbon Dioxide 21 L (22-30) mmol/L BUN (9-20) mg/dL Glucose 210 H (75-100) mg/dL Magnesium (1.7-2.3) mg/dL Ferritin (30.0-300.0) ng/mL Total Bilirubin 2.00 H (0.1-1.2) mg/dL AST 51 H (5-40) units/L Lactate Dehydrogenase (91-180) units/L C-Reactive Protein (0.00-1.30) mg/dL Albumin 3.0 L (3.9-5) g/dL Assessment and Plan Cultures: Blood culture no growth so far COVID PCR pending A/P: 60 yo M PMHx HTN, obesity admitted as COVID PUI. #COVID PUI: with bilateral pneumonia. Highly elevated inflammatory markers. #Acute hypoxemic respiratory failure: Likely secondary to COVID-19 infection. Currently on HFNC #Obesity Recs: -Dexamethasone per pulmonary for 10 days -If COVID PCR positive recommend Remdesivir 200 mg IV q day x 1 followed by 100 mg IV q day x 4 days -If COVID PCR positive recommend Actemra once given high CRP and on HFNC. -Obtain q48-72h inflammatory markers - ferritin, Ddimer, CRP, LDH -No need for antibiotics -Anticoagulation per hospital protocol -Proning as able Thank you for the consult, we will continue to follow. MD Negrita Rojas [facility] O: [phone] F: [phone]
[2020-10-10] MEDS ORDERED: REMDESIVIR 200 MG in SODIUM CHLORIDE 0.9% 250ML 250 ML IV ONE (15:00)
[2020-10-10] MEDS ORDERED: TOCILIZUMAB 800 MG in SODIUM CHLORIDE 0.9% 100 ML IV ONE (15:30)
[2020-10-10] MEDS: SODIUM CHLORIDE 0.9% 50 ML IVPB IV SCH (16:03)
[2020-10-10 17:10] LABS: Alanine Aminotransferase 44 units/L (7-56); Albumin 2.7 g/dL (3.9-5); BUN/Creatinine Ratio 35; Blood Urea Nitrogen 21 mg/dL (9-20); Calcium 8.2 mg/dL (8.4-10.2); Hemolysis Index 27
[2020-10-10] MEDS: ENOXAPARIN 120 MG/0.8 ML INJ SUB-Q SCH (21:35)
[2020-10-10] MEDS ORDERED: ENOXAPARIN 100 MG/1 ML INJ SUB-Q SCH (22:00)
[2020-10-11 05:45] LABS: Hematocrit 37.3 % (35.5-45.6); Hemoglobin 12.4 gm/dl (11.8-15.2); Mean Corpuscular HGB Conc 33 % (32-34); Mean Corpuscular Volume 85 fl (84-94); Platelet Count 251 K/mm3 (140-440); Red Blood Count 4.41 M/mm3 (3.65-5.03); Red Cell Distribution Width 12.9 % (13.2-15.2)
[2020-10-11 05:49] LABS: Alanine Aminotransferase 51 units/L (7-56); Albumin 3.2 g/dL (3.9-5); Blood Urea Nitrogen 20 mg/dL (9-20); Calcium 8.9 mg/dL (8.4-10.2); Hemolysis Index 0
[2020-10-11 05:50] LABS: BUN/Creatinine Ratio 29
[2020-10-11 06:57] LABS: Band Neutrophils # (Manual) 0.1 K/mm3; Total Cells Counted 100
[2020-10-11 06:58] LABS: Anisocytosis 1+; Platelet Estimate Consistent w Auto
[2020-10-11] MEDS: dexAMETHasone 4 MG/ML VIAL IV SCH (09:01)
[2020-10-11] MEDS: ENOXAPARIN 120 MG/0.8 ML INJ SUB-Q SCH ×2 (09:02→21:22)
--- NOTE | 2020-10-11 10:21 | Consultation ---
History of Present Illness - Reason for Consult Consult date: 10/11/20 - History of Present Illness Afebrile, Covid positive. White count increased 12.6. Currently requiring high flow nasal cannula. Past History Past Medical History: hypertension, other (See HPI) Past Surgical History: No surgical history, Other (Reviewed) Social history: single. denies: smoking, alcohol abuse Family history: hypertension Medications and Allergies Allergies Allergy/AdvReac Type Severity Reaction Status Date / Time No Known Allergies Allergy Verified 10/10/20 02:19 Home Medications Medication Instructions Recorded Confirmed Last Taken Type Losartan [Cozaar] 100 mg PO QHS 10/10/20 10/10/20 10/08/20 History Tamsulosin [Flomax] 0.4 mg PO QHS 10/10/20 10/10/20 10/08/20 History amLODIPine [Norvasc] 10 mg PO QHS 10/10/20 10/10/20 10/08/20 History Active Meds: Active Medications Acetaminophen (Acetaminophen 325 Mg Tab) 650 mg PO Q6H PRN PRN Reason: Pain MILD(1-3)/Fever >100.5/NAVA Albuterol (Albuterol 2.5 Mg/3 Ml Nebu) 2.5 mg IH Q3HRT PRN PRN Reason: Shortness Of Breath Dexamethasone (Dexamethasone 4 Mg/Ml Vial) 8 mg IV DAILY [facility] Stop: 10/20/20 10:01 Last Admin: 10/11/20 09:01 Dose: 8 mg Documented by: Enoxaparin Sodium (Enoxaparin 120 Mg/0.8 Ml Inj) 120 mg SUB-Q Q12HR [facility] Last Admin: 10/11/20 09:02 Dose: 120 mg Documented by: Hydromorphone HCl (Hydromorphone 1 Mg/1 Ml Inj) 0.5 mg IV Q12H PRN PRN Reason: Pain , Severe (7-10) REMDESIVIR 100 mg/ Sodium (Chloride) 250 mls @ 500 mls/hr IV Q24HR@2100 [facility] Stop: 10/14/20 21:29 Oxycodone/Acetaminophen (Oxycodone /Acetaminophen 5-325mg Tab) 1 tab PO Q12H PRN PRN Reason: Pain, Moderate (4-6) Sodium Chloride (Sodium Chloride 0.9% 10 Ml Flush Syringe) 10 ml IV BID [facility] Last Admin: 10/11/20 09:03 Dose: 10 ml Documented by: Sodium Chloride (Sodium Chloride 0.9% 10 Ml Flush Syringe) 10 ml IV PRN PRN PRN Reason: LINE FLUSH Sodium Chloride (Sodium Chloride 0.9% 50 Ml Ivpb) 50 ml IV Q24HR@2100 [facility] Stop: 10/14/20 21:01 Last Admin: 10/10/20 16:03 Dose: 50 ml Documented by: Physical Examination - Physical Exam Narrative exam: physical exam deferred to reduce risk of transmission of COVID-19. Please refer to primary team's note. - Constitutional Vitals: Vital Signs Temp Pulse Resp BP Pulse Ox 97.8 F 98 H 18 100/72 99 10/11/20 08:00 10/11/20 09:01 10/11/20 09:01 10/11/20 09:01 10/11/20 09:00 Temperature -Last 24 Hours Temperature 97.8 F Temperature 97.4 F Temperature 97.6 F Temperature 97.8 F Temperature 98.2 F Temperature 97.5 F Results - Labs CBC & Chem 7: 10/11/20 04:14 10/11/20 04:14 Labs: Abnormal lab results 10/09/20 10/10/20 10/11/20 Range/Units Unknown 16:32 04:14 WBC 12.6 H (4.5-11.0) K/mm3 RDW 12.9 L (13.2-15.2) % Seg Neuts % (Manual) 91.0 H (40.0-70.0) % Lymphocytes % (Manual) 6.0 L (13.4-35.0) % Seg Neutrophils # Man 11.5 H (1.8-7.7) K/mm3 Lymphocytes # (Manual) 0.8 L (1.2-5.4) K/mm3 Sodium 130 L (137-145) mmol/L Carbon Dioxide 16 L (22-30) mmol/L BUN 21 H (9-20) mg/dL Creatinine 0.6 L (0.8-1.3) mg/dL Glucose 199 H (75-100) mg/dL Calcium 8.2 L (8.4-10.2) mg/dL AST (5-40) units/L Albumin 2.7 L (3.9-5) g/dL Coronavirus (PCR) Positive A (Negative) 10/11/20 Range/Units 04:14 WBC (4.5-11.0) K/mm3 RDW (13.2-15.2) % Seg Neuts % (Manual) (40.0-70.0) % Lymphocytes % (Manual) (13.4-35.0) % Seg Neutrophils # Man (1.8-7.7) K/mm3 Lymphocytes # (Manual) (1.2-5.4) K/mm3 Sodium (137-145) mmol/L Carbon Dioxide (22-30) mmol/L BUN (9-20) mg/dL Creatinine 0.7 L (0.8-1.3) mg/dL Glucose 127 H (75-100) mg/dL Calcium (8.4-10.2) mg/dL AST 47 H (5-40) units/L Albumin 3.2 L (3.9-5) g/dL Coronavirus (PCR) (Negative) Assessment and Plan Cultures: Blood culture no growth so far COVID PCR positive A/P: 60 yo M PMHx HTN, obesity admitted as COVID. #COVID pneumonia: with bilateral pneumonia. Highly elevated inflammatory markers. #Acute hypoxemic respiratory failure: Likely secondary to COVID-19 infection. Currently on HFNC #Obesity Recs: -Dexamethasone per pulmonary for 10 days -Remdesivir 200 mg IV q day x 1 followed by 100 mg IV q day x 4 days -Actemra once given high CRP and on HFNC. -Obtain q48-72h inflammatory markers - ferritin, Ddimer, CRP, LDH -Anticoagulation per hospital protocol -Proning as able Thank you for the consult, we will continue to follow. Marcelina Grace MD [facility] O: [phone] F: [phone]
--- NOTE | 2020-10-11 11:16 | Progress Note ---
Assessment and Plan Assessment and plan: Acute hypoxemic respiratory failure Bilateral pneumonia. Sepsis. Patient meets criteria given the tachycardia, tachypnea and diagnosis of bilateral pneumonia. COVID-19 infection. Covid PCR + 10/09/2020 Thrombocytopenia. 10/10/2020. Patient currently with high flow nasal cannula with oxygen flow rate of 40 and FiO2 90%. ID consulted. Await COVID-19 testing. Start dexamethasone 6 mg IV daily. Patient may need higher dose given obesity. Await ID recommendations regarding remdesivir as well as Covid testing. Patient with significantly elevated inflammatory markers D-dimer greater than 10,000, ferritin 8000, LDH 1500 and CRP 20. Check CTA of chest when patient medically stable. Start treatment dose of Lovenox given the extremely high D-dimer. Hold on IV antibiotics given the normal procalcitonin. 10/11/2020. Patient currently with HFNC of 30 L with FiO2 of 70%. Covid PCR + 10/09/2020. Continue dexamethasone and remdesivir for 10 days and 5 days respectively. Actemra was given because of high CRP and HFNC. Continue to monitor anti-inflammatory markers of ferritin, D-dimer, CRP and LDH. Full dose anticoagulation given extremely high D-dimer. Continue prone positioning as available. CTA of chest when patient more stable. History Interval history: No new issues overnight. Hospitalist Physical - Constitutional Vitals: Temp Pulse Resp BP Pulse Ox 97.8 F 90 21 110/77 99 10/11/20 08:00 10/11/20 11:01 10/11/20 11:01 10/11/20 11:01 10/11/20 09:00 General appearance: Present: mild distress, obese - EENT Eyes: Present: PERRL, EOM intact ENT: hearing intact, clear oral mucosa, dentition normal - Neck Neck: Present: supple, normal ROM - Respiratory Respiratory effort: normal Respiratory: bilateral: CTA - Cardiovascular Rhythm: regular Heart Sounds: Present: S1 & S2. Absent: gallop, rub - Extremities Extremities: no ischemia, No edema, Full ROM - Abdominal General gastrointestinal: soft, non-tender, non-distended, normal bowel sounds - Integumentary Integumentary: Present: clear, warm, dry - Neurologic Neurologic: CNII-XII intact, moves all extremities HEART Score - HEART Score Troponin: Troponin T < 0.010 ng/mL (0.00-0.029) 10/09/20 19:41 Results - Labs CBC & Chem 7: 10/11/20 04:14 10/11/20 04:14 Labs: Laboratory Last Values WBC 12.6 K/mm3 (4.5-11.0) H 10/11/20 04:14 RBC 4.41 M/mm3 (3.65-5.03) 10/11/20 04:14 Hgb 12.4 gm/dl (11.8-15.2) 10/11/20 04:14 Hct 37.3 % (35.5-45.6) 10/11/20 04:14 MCV 85 fl (84-94) 10/11/20 04:14 MCH 28 pg (28-32) 10/11/20 04:14 MCHC 33 % (32-34) 10/11/20 04:14 RDW 12.9 % (13.2-15.2) L 10/11/20 04:14 Plt Count 251 K/mm3 (140-440) 10/11/20 04:14 Add Manual Diff Complete 10/11/20 04:14 Total Counted 100 10/11/20 04:14 Seg Neuts % (Manual) 91.0 % (40.0-70.0) H 10/11/20 04:14 Band Neutrophils % 1.0 % 10/11/20 04:14 Lymphocytes % (Manual) 6.0 % (13.4-35.0) L 10/11/20 04:14 Monocytes % (Manual) 2.0 % (0.0-7.3) 10/11/20 04:14 Metamyelocytes % 1.0 % 10/09/20 19:41 Nucleated RBC % Not Reportable 10/11/20 04:14 Seg Neutrophils # Man 11.5 K/mm3 (1.8-7.7) H 10/11/20 04:14 Band Neutrophils # 0.1 K/mm3 10/11/20 04:14 Lymphocytes # (Manual) 0.8 K/mm3 (1.2-5.4) L 10/11/20 04:14 Abs React Lymphs (Man) 0.0 K/mm3 10/11/20 04:14 Monocytes # (Manual) 0.3 K/mm3 (0.0-0.8) 10/11/20 04:14 Eosinophils # (Manual) 0.0 K/mm3 (0.0-0.4) 10/11/20 04:14 Basophils # (Manual) 0.0 K/mm3 (0.0-0.1) 10/11/20 04:14 Metamyelocytes # 0.0 K/mm3 10/11/20 04:14 Myelocytes # 0.0 K/mm3 10/11/20 04:14 Promyelocytes # 0.0 K/mm3 10/11/20 04:14 Blast Cells # 0.0 K/mm3 10/11/20 04:14 WBC Morphology Not Reportable 10/11/20 04:14 Hypersegmented Neuts Not Reportable 10/11/20 04:14 Hyposegmented Neuts Not Reportable 10/11/20 04:14 Hypogranular Neuts Not Reportable 10/11/20 04:14 Smudge Cells Not Reportable 10/11/20 04:14 Toxic Granulation Not Reportable 10/11/20 04:14 Toxic Vacuolation Not Reportable 10/11/20 04:14 Dohle Bodies Not Reportable 10/11/20 04:14 Pelger-Huet Anomaly Not Reportable 10/11/20 04:14 Kiya Rods Not Reportable 10/11/20 04:14 Platelet Estimate Consistent w auto 10/11/20 04:14 Clumped Platelets Not Reportable 10/11/20 04:14 Plt Clumps, EDTA Not Reportable 10/11/20 04:14 Large Platelets Not Reportable 10/11/20 04:14 Giant Platelets Not Reportable 10/11/20 04:14 Platelet Satelliting Not Reportable 10/11/20 04:14 Plt Morphology Comment Not Reportable 10/11/20 04:14 RBC Morphology Not Reportable 10/11/20 04:14 Dimorphic RBCs Not Reportable 10/11/20 04:14 Polychromasia Not Reportable 10/11/20 04:14 Hypochromasia Not Reportable 10/11/20 04:14 Poikilocytosis Not Reportable 10/11/20 04:14 Anisocytosis 1+ 10/11/20 04:14 Microcytosis Not Reportable 10/11/20 04:14 Macrocytosis Not Reportable 10/11/20 04:14 Spherocytes Not Reportable 10/11/20 04:14 Pappenheimer Bodies Not Reportable 10/11/20 04:14 Sickle Cells Not Reportable 10/11/20 04:14 Target Cells Not Reportable 10/11/20 04:14 Tear Drop Cells Not Reportable 10/11/20 04:14 Ovalocytes Not Reportable 10/11/20 04:14 Helmet Cells Not Reportable 10/11/20 04:14 [place] Bodies Not Reportable 10/11/20 04:14 [place] Rings Not Reportable 10/11/20 04:14 [place] Cells Not Reportable 10/11/20 04:14 Bite Cells Not Reportable 10/11/20 04:14 Crenated Cell Not Reportable 10/11/20 04:14 Elliptocytes Not Reportable 10/11/20 04:14 Acanthocytes (Spur) Not Reportable 10/11/20 04:14 Rouleaux Not Reportable 10/11/20 04:14 Hemoglobin C Crystals Not Reportable 10/11/20 04:14 Schistocytes Not Reportable 10/11/20 04:14 Malaria parasites Not Reportable 10/11/20 04:14 Mode Bodies Not Reportable 10/11/20 04:14 Hem Pathologist Commnt No 10/11/20 04:14 D-Dimer > 39934 ng/mlDDU (0-234) H 10/09/20 20:13 Sodium 138 mmol/L (137-145) D 10/11/20 04:14 Potassium 4.4 mmol/L (3.6-5.0) 10/11/20 04:14 Chloride 103.0 mmol/L (98-107) 10/11/20 04:14 Carbon Dioxide 24 mmol/L (22-30) D 10/11/20 04:14 Anion Gap 15 mmol/L 10/11/20 04:14 BUN 20 mg/dL (9-20) 10/11/20 04:14 Creatinine 0.7 mg/dL (0.8-1.3) L 10/11/20 04:14 Estimated GFR > 60 ml/min 10/11/20 04:14 BUN/Creatinine Ratio 29 % 10/11/20 04:14 Glucose 127 mg/dL (75-100) H 10/11/20 04:14 Calcium 8.9 mg/dL (8.4-10.2) 10/11/20 04:14 Magnesium 2.50 mg/dL (1.7-2.3) H 10/09/20 19:41 Ferritin 8223.0 ng/mL (30.0-300.0) H 10/09/20 20:13 Total Bilirubin 0.90 mg/dL (0.1-1.2) 10/11/20 04:14 AST 47 units/L (5-40) H 10/11/20 04:14 ALT 51 units/L (7-56) 10/11/20 04:14 Alkaline Phosphatase 76 units/L (35-129) 10/11/20 04:14 Lactate Dehydrogenase 1517 units/L (91-180) H 10/09/20 20:13 Troponin T < 0.010 ng/mL (0.00-0.029) 10/09/20 19:41 C-Reactive Protein 20.80 mg/dL (0.00-1.30) H 10/09/20 20:13 Total Protein 6.8 g/dL (6.3-8.2) 10/11/20 04:14 Albumin 3.2 g/dL (3.9-5) L 10/11/20 04:14 Albumin/Globulin Ratio 0.9 % 10/11/20 04:14 Procalcitonin 0.49 ng/mL (<0.15) 10/09/20 20:13 Coronavirus (PCR) Positive (Negative) A 10/09/20 Unknown Olivera/IV: Voiding Method Urinal Active Medications - Current Medications Current Medications: Generic Name Dose Route Start Last Admin Trade Name Freq PRN Reason Stop Dose Admin Acetaminophen 650 mg 10/09/20 21:07 Acetaminophen 325 Mg Tab PO Q6H PRN Pain MILD(1-3)/Fever >100.5/NAVA Albuterol 2.5 mg 10/09/20 21:07 Albuterol 2.5 Mg/3 Ml Nebu IH Q3HRT PRN Shortness Of Breath Dexamethasone 8 mg 10/11/20 10:00 10/11/20 09:01 Dexamethasone 4 Mg/Ml Vial IV 10/20/20 10:01 8 mg DAILY [facility] Administration Enoxaparin Sodium 120 mg 10/10/20 22:00 10/11/20 09:02 Enoxaparin 120 Mg/0.8 Ml Inj SUB-Q 120 mg Q12HR [facility] Administration Hydromorphone HCl 0.5 mg 10/09/20 21:07 Hydromorphone 1 Mg/1 Ml Inj IV Q12H PRN Pain , Severe (7-10) REMDESIVIR 100 mg/ Sodium 250 mls @ 500 mls/hr 10/11/20 21:00 Chloride IV 10/14/20 21:29 Q24HR@2100 [facility] Oxycodone/Acetaminophen 1 tab 10/09/20 21:07 Oxycodone /Acetaminophen 5-325mg Tab PO Q12H PRN Pain, Moderate (4-6) Sodium Chloride 10 ml 10/09/20 22:00 10/11/20 09:03 Sodium Chloride 0.9% 10 Ml Flush Syringe IV 10 ml BID [facility]CHO Administration Sodium Chloride 10 ml 10/09/20 21:07 Sodium Chloride 0.9% 10 Ml Flush Syringe IV PRN PRN LINE FLUSH Sodium Chloride 50 ml 10/10/20 15:00 10/10/20 16:03 Sodium Chloride 0.9% 50 Ml Ivpb IV 10/14/20 21:01 50 ml Q24HR@2100 [facility] Administration
[2020-10-11] MEDS: REMDESIVIR 100 MG in SODIUM CHLORIDE 0.9% 250ML 250 ML IV SCH (21:14)
[2020-10-11] MEDS: SODIUM CHLORIDE 0.9% 50 ML IVPB IV SCH (21:15)
[2020-10-12 06:42] LABS: Alanine Aminotransferase 115 units/L (7-56); Albumin 2.9 g/dL (3.9-5); Blood Urea Nitrogen 20 mg/dL (9-20); Hemolysis Index 78
[2020-10-12 06:44] LABS: BUN/Creatinine Ratio 29
--- NOTE | 2020-10-12 08:53 | Progress Note ---
Assessment and Plan Assessment and plan: Acute hypoxemic respiratory failure Bilateral pneumonia. Sepsis. Patient meets criteria given the tachycardia, tachypnea and diagnosis of bilateral pneumonia. COVID-19 infection. Covid PCR + 10/09/2020 Thrombocytopenia. 10/10/2020. Patient currently with high flow nasal cannula with oxygen flow rate of 40 and FiO2 90%. ID consulted. Await COVID-19 testing. Start dexamethasone 6 mg IV daily. Patient may need higher dose given obesity. Await ID recommendations regarding remdesivir as well as Covid testing. Patient with significantly elevated inflammatory markers D-dimer greater than 10,000, ferritin 8000, LDH 1500 and CRP 20. Check CTA of chest when patient medically stable. Start treatment dose of Lovenox given the extremely high D-dimer. Hold on IV antibiotics given the normal procalcitonin. 10/11/2020. Patient currently with HFNC of 30 L with FiO2 of 70%. Covid PCR + 10/09/2020. Continue dexamethasone and remdesivir for 10 days and 5 days respectively. Actemra was given because of high CRP and HFNC. Continue to monitor anti-inflammatory markers of ferritin, D-dimer, CRP and LDH. Full dose anticoagulation given extremely high D-dimer. Continue prone positioning as available. CTA of chest when patient more stable. 10/12/2020. Patient currently with HFNC 30 L / 100%. Continue dexamethasone and remdesivir per ID recommendations continue to trend anti-inflammatory markers. Continue Full dose anticoagulation given extremely high D-dimer. Continue prone positioning as available. CTA of chest when patient more stable. History Interval history: No new issues overnight. Hospitalist Physical - Constitutional Vitals: Temp Pulse Resp BP Pulse Ox 97.7 F 80 19 110/78 100 10/12/20 03:31 10/12/20 08:00 10/12/20 08:00 10/12/20 08:00 10/12/20 08:00 General appearance: Present: mild distress, obese - EENT Eyes: Present: PERRL, EOM intact ENT: hearing intact, clear oral mucosa, dentition normal - Neck Neck: Present: supple, normal ROM - Respiratory Respiratory effort: normal Respiratory: bilateral: CTA - Cardiovascular Rhythm: regular Heart Sounds: Present: S1 & S2. Absent: gallop, rub - Extremities Extremities: no ischemia, No edema, Full ROM - Abdominal General gastrointestinal: soft, non-tender, non-distended, normal bowel sounds - Integumentary Integumentary: Present: clear, warm, dry - Neurologic Neurologic: CNII-XII intact, moves all extremities HEART Score - HEART Score Troponin: Troponin T < 0.010 ng/mL (0.00-0.029) 10/09/20 19:41 Results - Labs CBC & Chem 7: 10/11/20 04:14 10/12/20 05:21 Labs: Laboratory Last Values WBC 12.6 K/mm3 (4.5-11.0) H 10/11/20 04:14 RBC 4.41 M/mm3 (3.65-5.03) 10/11/20 04:14 Hgb 12.4 gm/dl (11.8-15.2) 10/11/20 04:14 Hct 37.3 % (35.5-45.6) 10/11/20 04:14 MCV 85 fl (84-94) 10/11/20 04:14 MCH 28 pg (28-32) 10/11/20 04:14 MCHC 33 % (32-34) 10/11/20 04:14 RDW 12.9 % (13.2-15.2) L 10/11/20 04:14 Plt Count 251 K/mm3 (140-440) 10/11/20 04:14 Add Manual Diff Complete 10/11/20 04:14 Total Counted 100 10/11/20 04:14 Seg Neuts % (Manual) 91.0 % (40.0-70.0) H 10/11/20 04:14 Band Neutrophils % 1.0 % 10/11/20 04:14 Lymphocytes % (Manual) 6.0 % (13.4-35.0) L 10/11/20 04:14 Monocytes % (Manual) 2.0 % (0.0-7.3) 10/11/20 04:14 Metamyelocytes % 1.0 % 10/09/20 19:41 Nucleated RBC % Not Reportable 10/11/20 04:14 Seg Neutrophils # Man 11.5 K/mm3 (1.8-7.7) H 10/11/20 04:14 Band Neutrophils # 0.1 K/mm3 10/11/20 04:14 Lymphocytes # (Manual) 0.8 K/mm3 (1.2-5.4) L 10/11/20 04:14 Abs React Lymphs (Man) 0.0 K/mm3 10/11/20 04:14 Monocytes # (Manual) 0.3 K/mm3 (0.0-0.8) 10/11/20 04:14 Eosinophils # (Manual) 0.0 K/mm3 (0.0-0.4) 10/11/20 04:14 Basophils # (Manual) 0.0 K/mm3 (0.0-0.1) 10/11/20 04:14 Metamyelocytes # 0.0 K/mm3 10/11/20 04:14 Myelocytes # 0.0 K/mm3 10/11/20 04:14 Promyelocytes # 0.0 K/mm3 10/11/20 04:14 Blast Cells # 0.0 K/mm3 10/11/20 04:14 WBC Morphology Not Reportable 10/11/20 04:14 Hypersegmented Neuts Not Reportable 10/11/20 04:14 Hyposegmented Neuts Not Reportable 10/11/20 04:14 Hypogranular Neuts Not Reportable 10/11/20 04:14 Smudge Cells Not Reportable 10/11/20 04:14 Toxic Granulation Not Reportable 10/11/20 04:14 Toxic Vacuolation Not Reportable 10/11/20 04:14 Dohle Bodies Not Reportable 10/11/20 04:14 Pelger-Huet Anomaly Not Reportable 10/11/20 04:14 Kiya Rods Not Reportable 10/11/20 04:14 Platelet Estimate Consistent w auto 10/11/20 04:14 Clumped Platelets Not Reportable 10/11/20 04:14 Plt Clumps, EDTA Not Reportable 10/11/20 04:14 Large Platelets Not Reportable 10/11/20 04:14 Giant Platelets Not Reportable 10/11/20 04:14 Platelet Satelliting Not Reportable 10/11/20 04:14 Plt Morphology Comment Not Reportable 10/11/20 04:14 RBC Morphology Not Reportable 10/11/20 04:14 Dimorphic RBCs Not Reportable 10/11/20 04:14 Polychromasia Not Reportable 10/11/20 04:14 Hypochromasia Not Reportable 10/11/20 04:14 Poikilocytosis Not Reportable 10/11/20 04:14 Anisocytosis 1+ 10/11/20 04:14 Microcytosis Not Reportable 10/11/20 04:14 Macrocytosis Not Reportable 10/11/20 04:14 Spherocytes Not Reportable 10/11/20 04:14 Pappenheimer Bodies Not Reportable 10/11/20 04:14 Sickle Cells Not Reportable 10/11/20 04:14 Target Cells Not Reportable 10/11/20 04:14 Tear Drop Cells Not Reportable 10/11/20 04:14 Ovalocytes Not Reportable 10/11/20 04:14 Helmet Cells Not Reportable 10/11/20 04:14 Dia-[place] Bodies Not Reportable 10/11/20 04:14 [place] Rings Not Reportable 10/11/20 04:14 [place] Cells Not Reportable 10/11/20 04:14 Bite Cells Not Reportable 10/11/20 04:14 Crenated Cell Not Reportable 10/11/20 04:14 Elliptocytes Not Reportable 10/11/20 04:14 Acanthocytes (Spur) Not Reportable 10/11/20 04:14 Rouleaux Not Reportable 10/11/20 04:14 Hemoglobin C Crystals Not Reportable 10/11/20 04:14 Schistocytes Not Reportable 10/11/20 04:14 Malaria parasites Not Reportable 10/11/20 04:14 Mode Bodies Not Reportable 10/11/20 04:14 Hem Pathologist Commnt No 10/11/20 04:14 D-Dimer > 83541 ng/mlDDU (0-234) H 10/09/20 20:13 Sodium 135 mmol/L (137-145) L 10/12/20 05:21 Potassium 5.2 mmol/L (3.6-5.0) H 10/12/20 05:21 Chloride 104.0 mmol/L (98-107) 10/12/20 05:21 Carbon Dioxide 19 mmol/L (22-30) L 10/12/20 05:21 Anion Gap 17 mmol/L 10/12/20 05:21 BUN 20 mg/dL (9-20) 10/12/20 05:21 Creatinine 0.7 mg/dL (0.8-1.3) L 10/12/20 05:21 Estimated GFR > 60 ml/min 10/12/20 05:21 BUN/Creatinine Ratio 29 % 10/12/20 05:21 Glucose 105 mg/dL (75-100) H 10/12/20 05:21 Calcium 8.0 mg/dL (8.4-10.2) L 10/12/20 05:21 Magnesium 2.50 mg/dL (1.7-2.3) H 10/09/20 19:41 Ferritin 8223.0 ng/mL (30.0-300.0) H 10/09/20 20:13 Total Bilirubin 0.70 mg/dL (0.1-1.2) 10/12/20 05:21 AST 76 units/L (5-40) H 10/12/20 05:21 ALT 115 units/L (7-56) H 10/12/20 05:21 Alkaline Phosphatase 82 units/L (35-129) 10/12/20 05:21 Lactate Dehydrogenase 1517 units/L (91-180) H 10/09/20 20:13 Troponin T < 0.010 ng/mL (0.00-0.029) 10/09/20 19:41 C-Reactive Protein 20.80 mg/dL (0.00-1.30) H 10/09/20 20:13 Total Protein 6.6 g/dL (6.3-8.2) 10/12/20 05:21 Albumin 2.9 g/dL (3.9-5) L 10/12/20 05:21 Albumin/Globulin Ratio 0.8 % 10/12/20 05:21 Procalcitonin 0.49 ng/mL (<0.15) 10/09/20 20:13 Coronavirus (PCR) Positive (Negative) A 10/09/20 Unknown Olivera/IV: Voiding Method Urinal Active Medications - Current Medications Current Medications: Generic Name Dose Route Start Last Admin Trade Name Freq PRN Reason Stop Dose Admin Acetaminophen 650 mg 10/09/20 21:07 Acetaminophen 325 Mg Tab PO Q6H PRN Pain MILD(1-3)/Fever >100.5/NAVA Albuterol 2.5 mg 10/09/20 21:07 Albuterol 2.5 Mg/3 Ml Nebu IH Q3HRT PRN Shortness Of Breath Dexamethasone 8 mg 10/11/20 10:00 10/11/20 09:01 Dexamethasone 4 Mg/Ml Vial IV 10/20/20 10:01 8 mg DAILY LENCHO Administration Enoxaparin Sodium 120 mg 10/10/20 22:00 10/11/20 21:22 Enoxaparin 120 Mg/0.8 Ml Inj SUB-Q 120 mg Q12HR LENCHO Administration Hydromorphone HCl 0.5 mg 10/09/20 21:07 Hydromorphone 1 Mg/1 Ml Inj IV Q12H PRN Pain , Severe (7-10) REMDESIVIR 100 mg/ Sodium 250 mls @ 500 mls/hr 10/11/20 21:00 10/11/20 21:14 Chloride IV 10/14/20 21:29 500 mls/hr Q24HR@2100 LENCHO Administration Oxycodone/Acetaminophen 1 tab 10/09/20 21:07 Oxycodone /Acetaminophen 5-325mg Tab PO Q12H PRN Pain, Moderate (4-6) Sodium Chloride 10 ml 10/09/20 22:00 10/11/20 21:22 Sodium Chloride 0.9% 10 Ml Flush Syringe IV 10 ml BID LENCHO Administration Sodium Chloride 10 ml 10/09/20 21:07 Sodium Chloride 0.9% 10 Ml Flush Syringe IV PRN PRN LINE FLUSH Sodium Chloride 50 ml 10/10/20 15:00 10/11/20 21:15 Sodium Chloride 0.9% 50 Ml Ivpb IV 10/14/20 21:01 50 ml Q24HR@2100 LENCHO Administration
[2020-10-12] MEDS: ENOXAPARIN 120 MG/0.8 ML INJ SUB-Q SCH ×2 (10:06→21:33)
[2020-10-12] MEDS: dexAMETHasone 4 MG/ML VIAL IV SCH (10:06)
[2020-10-12] MEDS: REMDESIVIR 100 MG in SODIUM CHLORIDE 0.9% 250ML 250 ML IV SCH (21:32)
[2020-10-12] MEDS: SODIUM CHLORIDE 0.9% 50 ML IVPB IV SCH (21:32)
[2020-10-13 06:32] LABS: Alanine Aminotransferase 228 units/L (7-56); Albumin 3.2 g/dL (3.9-5); Blood Urea Nitrogen 18 mg/dL (9-20); Calcium 8.7 mg/dL (8.4-10.2); Hemolysis Index 2
[2020-10-13 06:41] LABS: BUN/Creatinine Ratio 30
[2020-10-13] MEDS: ENOXAPARIN 120 MG/0.8 ML INJ SUB-Q SCH ×2 (09:03→21:04)
[2020-10-13] MEDS: dexAMETHasone 4 MG/ML VIAL IV SCH (09:03)
--- NOTE | 2020-10-13 09:22 | Progress Note ---
Assessment and Plan Assessment and plan: Acute hypoxemic respiratory failure Bilateral pneumonia. Sepsis. Patient meets criteria given the tachycardia, tachypnea and diagnosis of bilateral pneumonia. COVID-19 infection. Covid PCR + 10/09/2020 Thrombocytopenia. 10/10/2020. Patient currently with high flow nasal cannula with oxygen flow rate of 40 and FiO2 90%. ID consulted. Await COVID-19 testing. Start dexamethasone 6 mg IV daily. Patient may need higher dose given obesity. Await ID recommendations regarding remdesivir as well as Covid testing. Patient with significantly elevated inflammatory markers D-dimer greater than 10,000, ferritin 8000, LDH 1500 and CRP 20. Check CTA of chest when patient medically stable. Start treatment dose of Lovenox given the extremely high D-dimer. Hold on IV antibiotics given the normal procalcitonin. 10/11/2020. Patient currently with HFNC of 30 L with FiO2 of 70%. Covid PCR + 10/09/2020. Continue dexamethasone and remdesivir for 10 days and 5 days respectively. Actemra was given because of high CRP and HFNC. Continue to monitor anti-inflammatory markers of ferritin, D-dimer, CRP and LDH. Full dose anticoagulation given extremely high D-dimer. Continue prone positioning as available. CTA of chest when patient more stable. 10/12/2020. Patient currently with HFNC 30 L / 100%. Continue dexamethasone and remdesivir per ID recommendations continue to trend anti-inflammatory markers. Continue Full dose anticoagulation given extremely high D-dimer. Continue prone positioning as available. CTA of chest when patient more stable. 10/13/2020. Patient currently with HFNC 30 L / 100%. Continue dexamethasone and remdesivir per ID recommendations continue to trend anti-inflammatory markers. S/p Actemra x1 given high CRP and HFNC. Continue Full dose anticoagulation given extremely high D-dimer. Continue prone positioning as available. CTA of chest when patient more stable. History Interval history: No new issues overnight. Hospitalist Physical - Constitutional Vitals: Temp Pulse Resp BP Pulse Ox 98.6 F 75 19 121/87 98 10/13/20 07:41 10/13/20 08:00 10/13/20 08:00 10/13/20 08:00 10/13/20 08:00 General appearance: Present: mild distress, obese - EENT Eyes: Present: PERRL, EOM intact ENT: hearing intact, clear oral mucosa, dentition normal - Neck Neck: Present: supple, normal ROM - Respiratory Respiratory effort: normal Respiratory: bilateral: CTA - Cardiovascular Rhythm: regular Heart Sounds: Present: S1 & S2. Absent: gallop, rub - Extremities Extremities: no ischemia, No edema, Full ROM - Abdominal General gastrointestinal: soft, non-tender, non-distended, normal bowel sounds - Integumentary Integumentary: Present: clear, warm, dry - Neurologic Neurologic: CNII-XII intact, moves all extremities HEART Score - HEART Score Troponin: Troponin T < 0.010 ng/mL (0.00-0.029) 10/09/20 19:41 Results - Labs CBC & Chem 7: 10/11/20 04:14 10/13/20 04:48 Labs: Laboratory Last Values WBC 12.6 K/mm3 (4.5-11.0) H 10/11/20 04:14 RBC 4.41 M/mm3 (3.65-5.03) 10/11/20 04:14 Hgb 12.4 gm/dl (11.8-15.2) 10/11/20 04:14 Hct 37.3 % (35.5-45.6) 10/11/20 04:14 MCV 85 fl (84-94) 10/11/20 04:14 MCH 28 pg (28-32) 10/11/20 04:14 MCHC 33 % (32-34) 10/11/20 04:14 RDW 12.9 % (13.2-15.2) L 10/11/20 04:14 Plt Count 251 K/mm3 (140-440) 10/11/20 04:14 Add Manual Diff Complete 10/11/20 04:14 Total Counted 100 10/11/20 04:14 Seg Neuts % (Manual) 91.0 % (40.0-70.0) H 10/11/20 04:14 Band Neutrophils % 1.0 % 10/11/20 04:14 Lymphocytes % (Manual) 6.0 % (13.4-35.0) L 10/11/20 04:14 Monocytes % (Manual) 2.0 % (0.0-7.3) 10/11/20 04:14 Metamyelocytes % 1.0 % 10/09/20 19:41 Nucleated RBC % Not Reportable 10/11/20 04:14 Seg Neutrophils # Man 11.5 K/mm3 (1.8-7.7) H 10/11/20 04:14 Band Neutrophils # 0.1 K/mm3 10/11/20 04:14 Lymphocytes # (Manual) 0.8 K/mm3 (1.2-5.4) L 10/11/20 04:14 Abs React Lymphs (Man) 0.0 K/mm3 10/11/20 04:14 Monocytes # (Manual) 0.3 K/mm3 (0.0-0.8) 10/11/20 04:14 Eosinophils # (Manual) 0.0 K/mm3 (0.0-0.4) 10/11/20 04:14 Basophils # (Manual) 0.0 K/mm3 (0.0-0.1) 10/11/20 04:14 Metamyelocytes # 0.0 K/mm3 10/11/20 04:14 Myelocytes # 0.0 K/mm3 10/11/20 04:14 Promyelocytes # 0.0 K/mm3 10/11/20 04:14 Blast Cells # 0.0 K/mm3 10/11/20 04:14 WBC Morphology Not Reportable 10/11/20 04:14 Hypersegmented Neuts Not Reportable 10/11/20 04:14 Hyposegmented Neuts Not Reportable 10/11/20 04:14 Hypogranular Neuts Not Reportable 10/11/20 04:14 Smudge Cells Not Reportable 10/11/20 04:14 Toxic Granulation Not Reportable 10/11/20 04:14 Toxic Vacuolation Not Reportable 10/11/20 04:14 Dohle Bodies Not Reportable 10/11/20 04:14 Pelger-Huet Anomaly Not Reportable 10/11/20 04:14 Kiya Rods Not Reportable 10/11/20 04:14 Platelet Estimate Consistent w auto 10/11/20 04:14 Clumped Platelets Not Reportable 10/11/20 04:14 Plt Clumps, EDTA Not Reportable 10/11/20 04:14 Large Platelets Not Reportable 10/11/20 04:14 Giant Platelets Not Reportable 10/11/20 04:14 Platelet Satelliting Not Reportable 10/11/20 04:14 Plt Morphology Comment Not Reportable 10/11/20 04:14 RBC Morphology Not Reportable 10/11/20 04:14 Dimorphic RBCs Not Reportable 10/11/20 04:14 Polychromasia Not Reportable 10/11/20 04:14 Hypochromasia Not Reportable 10/11/20 04:14 Poikilocytosis Not Reportable 10/11/20 04:14 Anisocytosis 1+ 10/11/20 04:14 Microcytosis Not Reportable 10/11/20 04:14 Macrocytosis Not Reportable 10/11/20 04:14 Spherocytes Not Reportable 10/11/20 04:14 Pappenheimer Bodies Not Reportable 10/11/20 04:14 Sickle Cells Not Reportable 10/11/20 04:14 Target Cells Not Reportable 10/11/20 04:14 Tear Drop Cells Not Reportable 10/11/20 04:14 Ovalocytes Not Reportable 10/11/20 04:14 Helmet Cells Not Reportable 10/11/20 04:14 Dia-[place] Bodies Not Reportable 10/11/20 04:14 [place] Rings Not Reportable 10/11/20 04:14 [place] Cells Not Reportable 10/11/20 04:14 Bite Cells Not Reportable 10/11/20 04:14 Crenated Cell Not Reportable 10/11/20 04:14 Elliptocytes Not Reportable 10/11/20 04:14 Acanthocytes (Spur) Not Reportable 10/11/20 04:14 Rouleaux Not Reportable 10/11/20 04:14 Hemoglobin C Crystals Not Reportable 10/11/20 04:14 Schistocytes Not Reportable 10/11/20 04:14 Malaria parasites Not Reportable 10/11/20 04:14 Mode Bodies Not Reportable 10/11/20 04:14 Hem Pathologist Commnt No 10/11/20 04:14 D-Dimer > 94943 ng/mlDDU (0-234) H 10/09/20 20:13 Sodium 136 mmol/L (137-145) L 10/13/20 04:48 Potassium 4.7 mmol/L (3.6-5.0) 10/13/20 04:48 Chloride 103.2 mmol/L (98-107) 10/13/20 04:48 Carbon Dioxide 24 mmol/L (22-30) 10/13/20 04:48 Anion Gap 14 mmol/L 10/13/20 04:48 BUN 18 mg/dL (9-20) 10/13/20 04:48 Creatinine 0.6 mg/dL (0.8-1.3) L 10/13/20 04:48 Estimated GFR > 60 ml/min 10/13/20 04:48 BUN/Creatinine Ratio 30 % 10/13/20 04:48 Glucose 103 mg/dL (75-100) H 10/13/20 04:48 Calcium 8.7 mg/dL (8.4-10.2) 10/13/20 04:48 Magnesium 2.50 mg/dL (1.7-2.3) H 10/09/20 19:41 Ferritin 8223.0 ng/mL (30.0-300.0) H 10/09/20 20:13 Total Bilirubin 0.70 mg/dL (0.1-1.2) 10/13/20 04:48 AST 151 units/L (5-40) H 10/13/20 04:48 ALT 228 units/L (7-56) H 10/13/20 04:48 Alkaline Phosphatase 82 units/L (35-129) 10/13/20 04:48 Lactate Dehydrogenase 1517 units/L (91-180) H 10/09/20 20:13 Troponin T < 0.010 ng/mL (0.00-0.029) 10/09/20 19:41 C-Reactive Protein 20.80 mg/dL (0.00-1.30) H 10/09/20 20:13 Total Protein 6.5 g/dL (6.3-8.2) 10/13/20 04:48 Albumin 3.2 g/dL (3.9-5) L 10/13/20 04:48 Albumin/Globulin Ratio 1.0 % 10/13/20 04:48 Procalcitonin 0.49 ng/mL (<0.15) 10/09/20 20:13 Coronavirus (PCR) Positive (Negative) A 10/09/20 Unknown Olivera/IV: Voiding Method Urinal Active Medications - Current Medications Current Medications: Generic Name Dose Route Start Last Admin Trade Name Freq PRN Reason Stop Dose Admin Acetaminophen 650 mg 10/09/20 21:07 Acetaminophen 325 Mg Tab PO Q6H PRN Pain MILD(1-3)/Fever >100.5/NAVA Albuterol 2.5 mg 10/09/20 21:07 Albuterol 2.5 Mg/3 Ml Nebu IH Q3HRT PRN Shortness Of Breath Dexamethasone 8 mg 10/11/20 10:00 10/13/20 09:03 Dexamethasone 4 Mg/Ml Vial IV 10/20/20 10:01 8 mg DAILY LENCHO Administration Enoxaparin Sodium 120 mg 10/10/20 22:00 10/13/20 09:03 Enoxaparin 120 Mg/0.8 Ml Inj SUB-Q 120 mg Q12HR LENCHO Administration Hydromorphone HCl 0.5 mg 10/09/20 21:07 Hydromorphone 1 Mg/1 Ml Inj IV Q12H PRN Pain , Severe (7-10) REMDESIVIR 100 mg/ Sodium 250 mls @ 500 mls/hr 10/11/20 21:00 10/12/20 21:32 Chloride IV 10/14/20 21:29 500 mls/hr Q24HR@2100 LENCHO Administration Oxycodone/Acetaminophen 1 tab 10/09/20 21:07 Oxycodone /Acetaminophen 5-325mg Tab PO Q12H PRN Pain, Moderate (4-6) Sodium Chloride 10 ml 10/09/20 22:00 10/13/20 09:04 Sodium Chloride 0.9% 10 Ml Flush Syringe IV 10 ml BID LENCHO Administration Sodium Chloride 10 ml 10/09/20 21:07 Sodium Chloride 0.9% 10 Ml Flush Syringe IV PRN PRN LINE FLUSH Sodium Chloride 50 ml 10/10/20 15:00 10/12/20 21:32 Sodium Chloride 0.9% 50 Ml Ivpb IV 10/14/20 21:01 50 ml Q24HR@2100 LENCHO Administration
[2020-10-13] MEDS: REMDESIVIR 100 MG in SODIUM CHLORIDE 0.9% 250ML 250 ML IV SCH (20:51)
[2020-10-13] MEDS: SODIUM CHLORIDE 0.9% 50 ML IVPB IV SCH (21:03)
[2020-10-14] MEDS: dexAMETHasone 4 MG/ML VIAL IV SCH (09:38)
[2020-10-14] MEDS: ENOXAPARIN 120 MG/0.8 ML INJ SUB-Q SCH ×2 (09:38→21:51)
--- NOTE | 2020-10-14 09:40 | Progress Note ---
Assessment and Plan Assessment and plan: Acute hypoxemic respiratory failure Bilateral pneumonia. Sepsis. Patient meets criteria given the tachycardia, tachypnea and diagnosis of bilateral pneumonia. COVID-19 infection. Covid PCR + 10/09/2020 Thrombocytopenia. 10/10/2020. Patient currently with high flow nasal cannula with oxygen flow rate of 40 and FiO2 90%. ID consulted. Await COVID-19 testing. Start dexamethasone 6 mg IV daily. Patient may need higher dose given obesity. Await ID recommendations regarding remdesivir as well as Covid testing. Patient with significantly elevated inflammatory markers D-dimer greater than 10,000, ferritin 8000, LDH 1500 and CRP 20. Check CTA of chest when patient medically stable. Start treatment dose of Lovenox given the extremely high D-dimer. Hold on IV antibiotics given the normal procalcitonin. 10/11/2020. Patient currently with HFNC of 30 L with FiO2 of 70%. Covid PCR + 10/09/2020. Continue dexamethasone and remdesivir for 10 days and 5 days respectively. Actemra was given because of high CRP and HFNC. Continue to monitor anti-inflammatory markers of ferritin, D-dimer, CRP and LDH. Full dose anticoagulation given extremely high D-dimer. Continue prone positioning as available. CTA of chest when patient more stable. 10/12/2020. Patient currently with HFNC 30 L / 100%. Continue dexamethasone and remdesivir per ID recommendations continue to trend anti-inflammatory markers. Continue Full dose anticoagulation given extremely high D-dimer. Continue prone positioning as available. CTA of chest when patient more stable. 10/13/2020. Patient currently with HFNC 30 L / 100%. Continue dexamethasone and remdesivir per ID recommendations continue to trend anti-inflammatory markers. S/p Actemra x1 given high CRP and HFNC. Continue Full dose anticoagulation given extremely high D-dimer. Continue prone positioning as available. CTA of chest when patient more stable. 10/14/2020. Patient still with HFNC 30 L / 100%. Continue dexamethasone and remdesivir per ID recommendations continue to trend anti-inflammatory markers. S/p Actemra x1 given high CRP and HFNC. Continue Full dose anticoagulation with Lovenox given extremely high D-dimer. Continue prone positioning as available. CTA of chest when patient more stable. History Interval history: No new issues overnight. Hospitalist Physical - Constitutional Vitals: Temp Pulse Resp BP Pulse Ox 97.8 F 68 18 112/80 100 10/14/20 07:36 10/14/20 08:06 10/14/20 08:06 10/14/20 08:06 10/14/20 08:06 General appearance: Present: mild distress, obese - EENT Eyes: Present: PERRL, EOM intact ENT: hearing intact, clear oral mucosa, dentition normal - Neck Neck: Present: supple, normal ROM - Respiratory Respiratory effort: normal Respiratory: bilateral: CTA - Cardiovascular Rhythm: regular Heart Sounds: Present: S1 & S2. Absent: gallop, rub - Extremities Extremities: no ischemia, No edema, Full ROM - Abdominal General gastrointestinal: soft, non-tender, non-distended, normal bowel sounds - Integumentary Integumentary: Present: clear, warm, dry - Neurologic Neurologic: CNII-XII intact, moves all extremities HEART Score - HEART Score Troponin: Troponin T < 0.010 ng/mL (0.00-0.029) 10/09/20 19:41 Results - Labs CBC & Chem 7: 10/11/20 04:14 10/13/20 04:48 Labs: Laboratory Last Values WBC 12.6 K/mm3 (4.5-11.0) H 10/11/20 04:14 RBC 4.41 M/mm3 (3.65-5.03) 10/11/20 04:14 Hgb 12.4 gm/dl (11.8-15.2) 10/11/20 04:14 Hct 37.3 % (35.5-45.6) 10/11/20 04:14 MCV 85 fl (84-94) 10/11/20 04:14 MCH 28 pg (28-32) 10/11/20 04:14 MCHC 33 % (32-34) 10/11/20 04:14 RDW 12.9 % (13.2-15.2) L 10/11/20 04:14 Plt Count 251 K/mm3 (140-440) 10/11/20 04:14 Add Manual Diff Complete 10/11/20 04:14 Total Counted 100 10/11/20 04:14 Seg Neuts % (Manual) 91.0 % (40.0-70.0) H 10/11/20 04:14 Band Neutrophils % 1.0 % 10/11/20 04:14 Lymphocytes % (Manual) 6.0 % (13.4-35.0) L 10/11/20 04:14 Monocytes % (Manual) 2.0 % (0.0-7.3) 10/11/20 04:14 Metamyelocytes % 1.0 % 10/09/20 19:41 Nucleated RBC % Not Reportable 10/11/20 04:14 Seg Neutrophils # Man 11.5 K/mm3 (1.8-7.7) H 10/11/20 04:14 Band Neutrophils # 0.1 K/mm3 10/11/20 04:14 Lymphocytes # (Manual) 0.8 K/mm3 (1.2-5.4) L 10/11/20 04:14 Abs React Lymphs (Man) 0.0 K/mm3 10/11/20 04:14 Monocytes # (Manual) 0.3 K/mm3 (0.0-0.8) 10/11/20 04:14 Eosinophils # (Manual) 0.0 K/mm3 (0.0-0.4) 10/11/20 04:14 Basophils # (Manual) 0.0 K/mm3 (0.0-0.1) 10/11/20 04:14 Metamyelocytes # 0.0 K/mm3 10/11/20 04:14 Myelocytes # 0.0 K/mm3 10/11/20 04:14 Promyelocytes # 0.0 K/mm3 10/11/20 04:14 Blast Cells # 0.0 K/mm3 10/11/20 04:14 WBC Morphology Not Reportable 10/11/20 04:14 Hypersegmented Neuts Not Reportable 10/11/20 04:14 Hyposegmented Neuts Not Reportable 10/11/20 04:14 Hypogranular Neuts Not Reportable 10/11/20 04:14 Smudge Cells Not Reportable 10/11/20 04:14 Toxic Granulation Not Reportable 10/11/20 04:14 Toxic Vacuolation Not Reportable 10/11/20 04:14 Dohle Bodies Not Reportable 10/11/20 04:14 Pelger-Huet Anomaly Not Reportable 10/11/20 04:14 Kiya Rods Not Reportable 10/11/20 04:14 Platelet Estimate Consistent w auto 10/11/20 04:14 Clumped Platelets Not Reportable 10/11/20 04:14 Plt Clumps, EDTA Not Reportable 10/11/20 04:14 Large Platelets Not Reportable 10/11/20 04:14 Giant Platelets Not Reportable 10/11/20 04:14 Platelet Satelliting Not Reportable 10/11/20 04:14 Plt Morphology Comment Not Reportable 10/11/20 04:14 RBC Morphology Not Reportable 10/11/20 04:14 Dimorphic RBCs Not Reportable 10/11/20 04:14 Polychromasia Not Reportable 10/11/20 04:14 Hypochromasia Not Reportable 10/11/20 04:14 Poikilocytosis Not Reportable 10/11/20 04:14 Anisocytosis 1+ 10/11/20 04:14 Microcytosis Not Reportable 10/11/20 04:14 Macrocytosis Not Reportable 10/11/20 04:14 Spherocytes Not Reportable 10/11/20 04:14 Pappenheimer Bodies Not Reportable 10/11/20 04:14 Sickle Cells Not Reportable 10/11/20 04:14 Target Cells Not Reportable 10/11/20 04:14 Tear Drop Cells Not Reportable 10/11/20 04:14 Ovalocytes Not Reportable 10/11/20 04:14 Helmet Cells Not Reportable 10/11/20 04:14 Dia-[place] Bodies Not Reportable 10/11/20 04:14 [place] Rings Not Reportable 10/11/20 04:14 Marylou Cells Not Reportable 10/11/20 04:14 Bite Cells Not Reportable 10/11/20 04:14 Crenated Cell Not Reportable 10/11/20 04:14 Elliptocytes Not Reportable 10/11/20 04:14 Acanthocytes (Spur) Not Reportable 10/11/20 04:14 Rouleaux Not Reportable 10/11/20 04:14 Hemoglobin C Crystals Not Reportable 10/11/20 04:14 Schistocytes Not Reportable 10/11/20 04:14 Malaria parasites Not Reportable 10/11/20 04:14 Mode Bodies Not Reportable 10/11/20 04:14 Hem Pathologist Commnt No 10/11/20 04:14 D-Dimer > 41374 ng/mlDDU (0-234) H 10/09/20 20:13 Sodium 136 mmol/L (137-145) L 10/13/20 04:48 Potassium 4.7 mmol/L (3.6-5.0) 10/13/20 04:48 Chloride 103.2 mmol/L (98-107) 10/13/20 04:48 Carbon Dioxide 24 mmol/L (22-30) 10/13/20 04:48 Anion Gap 14 mmol/L 10/13/20 04:48 BUN 18 mg/dL (9-20) 10/13/20 04:48 Creatinine 0.6 mg/dL (0.8-1.3) L 10/13/20 04:48 Estimated GFR > 60 ml/min 10/13/20 04:48 BUN/Creatinine Ratio 30 % 10/13/20 04:48 Glucose 103 mg/dL (75-100) H 10/13/20 04:48 Calcium 8.7 mg/dL (8.4-10.2) 10/13/20 04:48 Magnesium 2.50 mg/dL (1.7-2.3) H 10/09/20 19:41 Ferritin 8223.0 ng/mL (30.0-300.0) H 10/09/20 20:13 Total Bilirubin 0.70 mg/dL (0.1-1.2) 10/13/20 04:48 AST 151 units/L (5-40) H 10/13/20 04:48 ALT 228 units/L (7-56) H 10/13/20 04:48 Alkaline Phosphatase 82 units/L (35-129) 10/13/20 04:48 Lactate Dehydrogenase 1517 units/L (91-180) H 10/09/20 20:13 Troponin T < 0.010 ng/mL (0.00-0.029) 10/09/20 19:41 C-Reactive Protein 20.80 mg/dL (0.00-1.30) H 10/09/20 20:13 Total Protein 6.5 g/dL (6.3-8.2) 10/13/20 04:48 Albumin 3.2 g/dL (3.9-5) L 10/13/20 04:48 Albumin/Globulin Ratio 1.0 % 10/13/20 04:48 Procalcitonin 0.49 ng/mL (<0.15) 10/09/20 20:13 Coronavirus (PCR) Positive (Negative) A 10/09/20 Unknown Olivera/IV: Voiding Method Urinal Active Medications - Current Medications Current Medications: Generic Name Dose Route Start Last Admin Trade Name Freq PRN Reason Stop Dose Admin Acetaminophen 650 mg 10/09/20 21:07 Acetaminophen 325 Mg Tab PO Q6H PRN Pain MILD(1-3)/Fever >100.5/NAVA Albuterol 2.5 mg 10/09/20 21:07 Albuterol 2.5 Mg/3 Ml Nebu IH Q3HRT PRN Shortness Of Breath Dexamethasone 8 mg 10/11/20 10:00 10/13/20 09:03 Dexamethasone 4 Mg/Ml Vial IV 10/20/20 10:01 8 mg DAILY LENCHO Administration Enoxaparin Sodium 120 mg 10/10/20 22:00 10/13/20 21:04 Enoxaparin 120 Mg/0.8 Ml Inj SUB-Q 120 mg Q12HR LENCHO Administration Hydromorphone HCl 0.5 mg 10/09/20 21:07 Hydromorphone 1 Mg/1 Ml Inj IV Q12H PRN Pain , Severe (7-10) REMDESIVIR 100 mg/ Sodium 250 mls @ 500 mls/hr 10/11/20 21:00 10/13/20 21:21 Chloride IV 10/14/20 21:29 Infused Q24HR@2100 LENCHO Infusion Oxycodone/Acetaminophen 1 tab 10/09/20 21:07 Oxycodone /Acetaminophen 5-325mg Tab PO Q12H PRN Pain, Moderate (4-6) Sodium Chloride 10 ml 10/09/20 22:00 10/13/20 22:00 Sodium Chloride 0.9% 10 Ml Flush Syringe IV 10 ml BID LENCHO Administration Sodium Chloride 10 ml 10/09/20 21:07 Sodium Chloride 0.9% 10 Ml Flush Syringe IV PRN PRN LINE FLUSH Sodium Chloride 50 ml 10/10/20 15:00 10/13/20 21:03 Sodium Chloride 0.9% 50 Ml Ivpb IV 10/14/20 21:01 50 ml Q24HR@2100 LENCHO Administration
[2020-10-14 11:01] LABS: Albumin 3.3 g/dL (3.9-5); Bilirubin,Direct 0.3 mg/dL (0-0.2); C-Reactive Protein 0.7 mg/dL (0.00-1.30)
--- NOTE | 2020-10-14 16:27 | Progress Note ---
Assessment and Plan Cultures: Blood culture no growth so far COVID PCR positive A/P: 60 yo M PMHx HTN, obesity admitted as COVID. #COVID pneumonia: with bilateral pneumonia. Highly elevated inflammatory markers. #Acute hypoxemic respiratory failure: Likely secondary to COVID-19 infection. Currently on HFNC #Obesity Recs: -Dexamethasone per pulmonary for 10 days -Remdesivir 200 mg IV q day x 1 followed by 100 mg IV q day x 4 days -s/p Actemra -Obtain q48-72h inflammatory markers - ferritin, Ddimer, CRP, LDH -Anticoagulation per hospital protocol -Proning as able Thank you for the consult, we will continue to follow. Marcelina Grace MD [facility] ([facility] O: [phone] F: [phone] Subjective Date of service: 10/14/20 Interval history: Afebrile, no acute change. Currently on high flow nasal cannula. Objective - Exam Narrative Exam: physical exam deferred to reduce risk of transmission of COVID-19. Please refer to primary team's note. - Constitutional Vitals: Vital Signs Temp Pulse Resp BP Pulse Ox 98.9 F 74 20 119/88 97 10/14/20 11:58 10/14/20 11:31 10/14/20 11:31 10/14/20 11:00 10/14/20 11:31 Temperature -Last 24 Hours Temperature 98.9 F Temperature 97.8 F Temperature 98.6 F Temperature 97.6 F Temperature 98.2 F - Labs CBC & Chem 7: 10/11/20 04:14 10/13/20 04:48 Labs: Abnormal lab results 10/14/20 10/14/20 10/14/20 Range/Units 10:08 10:08 10:08 D-Dimer 6195.23 H (0-234) ng/mlDDU Ferritin > 2000.0 H (30.0-300.0) ng/mL Direct Bilirubin (0-0.2) mg/dL AST (5-40) units/L ALT (7-56) units/L Lactate Dehydrogenase 525 H (91-180) units/L Albumin (3.9-5) g/dL 10/14/20 Range/Units 10:08 D-Dimer (0-234) ng/mlDDU Ferritin (30.0-300.0) ng/mL Direct Bilirubin 0.3 H (0-0.2) mg/dL AST 135 H (5-40) units/L ALT 287 H (7-56) units/L Lactate Dehydrogenase (91-180) units/L Albumin 3.3 L (3.9-5) g/dL
[2020-10-14] MEDS: REMDESIVIR 100 MG in SODIUM CHLORIDE 0.9% 250ML 250 ML IV SCH (21:50)
[2020-10-14] MEDS: SODIUM CHLORIDE 0.9% 50 ML IVPB IV SCH (21:52)
[2020-10-15 06:19] LABS: Hematocrit 41.2 % (35.5-45.6); Mean Corpuscular HGB Conc 32 % (32-34); Mean Corpuscular Volume 87 fl (84-94); Platelet Count 396 K/mm3 (140-440); Red Blood Count 4.72 M/mm3 (3.65-5.03); Red Cell Distribution Width 13.5 % (13.2-15.2)
[2020-10-15 06:35] LABS: BUN/Creatinine Ratio 26; Blood Urea Nitrogen 21 mg/dL (9-20); Calcium 9.2 mg/dL (8.4-10.2); Hemolysis Index 4
[2020-10-15 09:07] LABS: Total Cells Counted 100
[2020-10-15 09:08] LABS: Band Neutrophils # (Manual) 0.4 K/mm3
[2020-10-15 09:11] LABS: Anisocytosis 1+; Promyelocytes # (Manual) 43.4 K/mm3
[2020-10-15 09:14] LABS: Macrocytosis Rare; Platelet Estimate Consistent w Auto
[2020-10-15] MEDS: dexAMETHasone 4 MG/ML VIAL IV SCH (09:53)
[2020-10-15] MEDS: ENOXAPARIN 120 MG/0.8 ML INJ SUB-Q SCH ×2 (09:54→22:00)
--- NOTE | 2020-10-15 14:56 | Progress Note ---
Assessment and Plan Cultures: Blood culture no growth so far COVID PCR positive A/P: 60 yo M PMHx HTN, obesity admitted as COVID. #COVID pneumonia: with bilateral pneumonia. Highly elevated inflammatory markers. #Acute hypoxemic respiratory failure: Likely secondary to COVID-19 infection. Currently on HFNC #Obesity Recs: -Dexamethasone per pulmonary for 10 days -Remdesivir 200 mg IV q day x 1 followed by 100 mg IV q day x 4 days -s/p Actemra -Obtain q48-72h inflammatory markers - ferritin, Ddimer, CRP, LDH -Anticoagulation per hospital protocol -Proning as able Thank you for the consult, we will continue to follow. Marcelina Grace MD [facility] ([facility]) O: [phone] F: [phone] Subjective Date of service: 10/15/20 Interval history: Afebrile, on HFNC. Objective - Exam Narrative Exam: physical exam deferred to reduce risk of transmission of COVID-19. Please refer to primary team's note. - Constitutional Vitals: Vital Signs Temp Pulse Resp BP Pulse Ox 97.6 F 87 23 132/68 96 10/15/20 08:00 10/15/20 13:01 10/15/20 13:01 10/15/20 13:01 10/15/20 13:01 Temperature -Last 24 Hours Temperature 97.6 F Temperature 98.8 F Temperature 98.3 F Temperature 97.8 F Temperature 97.8 F Temperature 97.6 F - Labs CBC & Chem 7: 10/15/20 05:39 10/15/20 05:39 Labs: Abnormal lab results 10/15/20 10/15/20 Range/Units 05:39 05:39 WBC 13.1 H (4.5-11.0) K/mm3 Lymphocytes % (Manual) 3.0 L (13.4-35.0) % Seg Neutrophils # Man 12.2 H (1.8-7.7) K/mm3 Lymphocytes # (Manual) 0.4 L (1.2-5.4) K/mm3 Potassium 5.3 H (3.6-5.0) mmol/L BUN 21 H (9-20) mg/dL Glucose 113 H (75-100) mg/dL
--- NOTE | 2020-10-15 15:56 | Progress Note ---
Assessment and Plan Assessment and plan: 1. Acute hypoxemic respiratory failure Continue with high flow nasal cannula titrate down as patient tolerates -Continue with dexamethasone x10 days, remdesivir x5 days, status post Actemra, Continue full dose anticoagulation, will consider CTA chest Inflammatory markers every 48 hours Pulmonary consult placed 2. COVID pneumonia. - management as above ID following 3. Sepsis. Patient meets criteria given the tachycardia, tachypnea and diagnosis of bilateral pneumonia. - managmeent as above 4. COVID-19 infection. Covid PCR + 10/09/2020 - management as above Hospital Course to date. 10/10/2020. Patient currently with high flow nasal cannula with oxygen flow rate of 40 and FiO2 90%. ID consulted. Await COVID-19 testing. Start dexamethasone 6 mg IV daily. Patient may need higher dose given obesity. Await ID recommendations regarding remdesivir as well as Covid testing. Patient with significantly elevated inflammatory markers D-dimer greater than 10,000, ferritin 8000, LDH 1500 and CRP 20. Check CTA of chest when patient medically stable. Start treatment dose of Lovenox given the extremely high D-dimer. Hold on IV antibiotics given the normal procalcitonin. 10/11/2020. Patient currently with HFNC of 30 L with FiO2 of 70%. Covid PCR + 10/09/2020. Continue dexamethasone and remdesivir for 10 days and 5 days respectively. Actemra was given because of high CRP and HFNC. Continue to monitor anti-inflammatory markers of ferritin, D-dimer, CRP and LDH. Full dose anticoagulation given extremely high D-dimer. Continue prone positioning as available. CTA of chest when patient more stable. 10/12/2020. Patient currently with HFNC 30 L / 100%. Continue dexamethasone and remdesivir per ID recommendations continue to trend anti-inflammatory markers. Continue Full dose anticoagulation given extremely high D-dimer. Continue prone positioning as available. CTA of chest when patient more stable. 10/13/2020. Patient currently with HFNC 30 L / 100%. Continue dexamethasone and remdesivir per ID recommendations continue to trend anti-inflammatory markers. S/p Actemra x1 given high CRP and HFNC. Continue Full dose anticoagulation given extremely high D-dimer. Continue prone positioning as available. CTA of chest when patient more stable. 10/14/2020. Patient still with HFNC 30 L / 100%. Continue dexamethasone and remdesivir per ID recommendations continue to trend anti-inflammatory markers. S/p Actemra x1 given high CRP and HFNC. Continue Full dose anticoagulation with Lovenox given extremely high D-dimer. Continue prone positioning as available. CTA of chest when patient more stable. 10/15/2020: Patient currently on HFNC 20L/ 60%. Continue covid standard therapies. trending anti inflammatory markers q48hrs. Full dose anticoagulation disconitnued. Switched to DVT prophylaxis dosing. ordered physical therapy. patient appears strong enough to mobilize within room. Infectious disease following. Pulmonary consulted. History Interval history: No acute complaints on encounter. Patient states that his breathing has improved from earlier in this hospital admission. Hospitalist Physical - Physical exam Narrative exam: Physical Exam: Constitutional: Alert, cooperative. No acute distress Head, Ears, Nose: Normocephalic, atraumatic. External ears, nose normal Eyes: Conjunctivae/corneas clear. No icterus. No ptosis. Neck: Supple, no meningeal signs Oral: dentition fair, no thrush Cardiovascular: S1, S2 normal. Respiratory: Good air entry, imrpovement in lung exam. high flow NC in place GI: Soft, non-tender; bowel sounds normal. No peritoneal signs. Musculoskeletal: No pedal edema, no cyanosis. Skin: No rash or abscess Hem/Lymphatic: No palpable cervical or supraclavicular nodes. No lymphangitis Psych: Mood ok. Affect normal Neurological: Awake, alert, oriented. No gross abnormality - Constitutional Vitals: Temp Pulse Resp BP Pulse Ox 97.6 F 87 23 132/68 96 10/15/20 08:00 10/15/20 13:01 10/15/20 13:01 10/15/20 13:01 10/15/20 13:01 General appearance: Present: mild distress, obese HEART Score - HEART Score Troponin: Troponin T < 0.010 ng/mL (0.00-0.029) 10/09/20 19:41 Results - Labs CBC & Chem 7: 10/15/20 05:39 10/15/20 05:39 Labs: Laboratory Last Values WBC 13.1 K/mm3 (4.5-11.0) H 10/15/20 05:39 RBC 4.72 M/mm3 (3.65-5.03) 10/15/20 05:39 Hgb 13.0 gm/dl (11.8-15.2) 10/15/20 05:39 Hct 41.2 % (35.5-45.6) 10/15/20 05:39 MCV 87 fl (84-94) 10/15/20 05:39 MCH 28 pg (28-32) 10/15/20 05:39 MCHC 32 % (32-34) 10/15/20 05:39 RDW 13.5 % (13.2-15.2) 10/15/20 05:39 Plt Count 396 K/mm3 (140-440) 10/15/20 05:39 Add Manual Diff Complete 10/15/20 05:39 Total Counted 100 10/15/20 05:39 Seg Neuts % (Manual) 91.0 % (40.0-70.0) H 10/11/20 04:14 Band Neutrophils % 3.0 % 10/15/20 05:39 Lymphocytes % (Manual) 3.0 % (13.4-35.0) L 10/15/20 05:39 Monocytes % (Manual) 1.0 % (0.0-7.3) 10/15/20 05:39 Metamyelocytes % 1.0 % 10/09/20 19:41 Nucleated RBC % Not Reportable 10/15/20 05:39 Seg Neutrophils # Man 12.2 K/mm3 (1.8-7.7) H 10/15/20 05:39 Band Neutrophils # 0.4 K/mm3 10/15/20 05:39 Lymphocytes # (Manual) 0.4 K/mm3 (1.2-5.4) L 10/15/20 05:39 Abs React Lymphs (Man) 0.0 K/mm3 10/15/20 05:39 Monocytes # (Manual) 0.1 K/mm3 (0.0-0.8) 10/15/20 05:39 Eosinophils # (Manual) 0.0 K/mm3 (0.0-0.4) 10/15/20 05:39 Basophils # (Manual) 0.0 K/mm3 (0.0-0.1) 10/15/20 05:39 Metamyelocytes # 0.0 K/mm3 10/15/20 05:39 Myelocytes # 0.0 K/mm3 10/15/20 05:39 Promyelocytes # 43.4 K/mm3 10/15/20 05:39 Blast Cells # 0.0 K/mm3 10/15/20 05:39 WBC Morphology Not Reportable 10/15/20 05:39 Hypersegmented Neuts Not Reportable 10/15/20 05:39 Hyposegmented Neuts Not Reportable 10/15/20 05:39 Hypogranular Neuts Not Reportable 10/15/20 05:39 Smudge Cells Not Reportable 10/15/20 05:39 Toxic Granulation Not Reportable 10/15/20 05:39 Toxic Vacuolation Not Reportable 10/15/20 05:39 Dohle Bodies Not Reportable 10/15/20 05:39 Pelger-Huet Anomaly Not Reportable 10/15/20 05:39 Kiya Rods Not Reportable 10/15/20 05:39 Platelet Estimate Consistent w auto 10/15/20 05:39 Clumped Platelets Not Reportable 10/15/20 05:39 Plt Clumps, EDTA Not Reportable 10/15/20 05:39 Large Platelets Not Reportable 10/15/20 05:39 Giant Platelets Not Reportable 10/15/20 05:39 Platelet Satelliting Not Reportable 10/15/20 05:39 Plt Morphology Comment Not Reportable 10/15/20 05:39 RBC Morphology Not Reportable 10/15/20 05:39 Dimorphic RBCs Not Reportable 10/15/20 05:39 Polychromasia Not Reportable 10/15/20 05:39 Hypochromasia Not Reportable 10/15/20 05:39 Poikilocytosis Not Reportable 10/15/20 05:39 Anisocytosis 1+ 10/15/20 05:39 Microcytosis Not Reportable 10/15/20 05:39 Macrocytosis Rare 10/15/20 05:39 Spherocytes Not Reportable 10/15/20 05:39 Pappenheimer Bodies Not Reportable 10/15/20 05:39 Sickle Cells Not Reportable 10/15/20 05:39 Target Cells Not Reportable 10/15/20 05:39 Tear Drop Cells Not Reportable 10/15/20 05:39 Ovalocytes Not Reportable 10/15/20 05:39 Helmet Cells Not Reportable 10/15/20 05:39 Dia-[place] Bodies Not Reportable 10/15/20 05:39 [place] Rings Not Reportable 10/15/20 05:39 Marylou Cells Not Reportable 10/15/20 05:39 Bite Cells Not Reportable 10/15/20 05:39 Crenated Cell Not Reportable 10/15/20 05:39 Elliptocytes Not Reportable 10/15/20 05:39 Acanthocytes (Spur) Not Reportable 10/15/20 05:39 Rouleaux Not Reportable 10/15/20 05:39 Hemoglobin C Crystals Not Reportable 10/15/20 05:39 Schistocytes Not Reportable 10/15/20 05:39 Malaria parasites Not Reportable 10/15/20 05:39 Mode Bodies Not Reportable 10/15/20 05:39 Hem Pathologist Commnt No 10/15/20 05:39 D-Dimer 6195.23 ng/mlDDU (0-234) H 10/14/20 10:08 Sodium 137 mmol/L (137-145) 10/15/20 05:39 Potassium 5.3 mmol/L (3.6-5.0) H 10/15/20 05:39 Chloride 100.7 mmol/L (98-107) 10/15/20 05:39 Carbon Dioxide 25 mmol/L (22-30) 10/15/20 05:39 Anion Gap 17 mmol/L 10/15/20 05:39 BUN 21 mg/dL (9-20) H 10/15/20 05:39 Creatinine 0.8 mg/dL (0.8-1.3) 10/15/20 05:39 Estimated GFR > 60 ml/min 10/15/20 05:39 BUN/Creatinine Ratio 26 % 10/15/20 05:39 Glucose 113 mg/dL (75-100) H 10/15/20 05:39 Calcium 9.2 mg/dL (8.4-10.2) 10/15/20 05:39 Magnesium 2.50 mg/dL (1.7-2.3) H 10/09/20 19:41 Ferritin > 2000.0 ng/mL (30.0-300.0) H 10/14/20 10:08 Total Bilirubin 0.70 mg/dL (0.1-1.2) 10/14/20 10:08 Direct Bilirubin 0.3 mg/dL (0-0.2) H 10/14/20 10:08 Indirect Bilirubin 0.4 mg/dL 10/14/20 10:08 AST 135 units/L (5-40) H 10/14/20 10:08 ALT 287 units/L (7-56) H 10/14/20 10:08 Alkaline Phosphatase 80 units/L (35-129) 10/14/20 10:08 Lactate Dehydrogenase 525 units/L (91-180) H 10/14/20 10:08 Troponin T < 0.010 ng/mL (0.00-0.029) 10/09/20 19:41 C-Reactive Protein 0.70 mg/dL (0.00-1.30) 10/14/20 10:08 Total Protein 6.6 g/dL (6.3-8.2) 10/14/20 10:08 Albumin 3.3 g/dL (3.9-5) L 10/14/20 10:08 Albumin/Globulin Ratio 1.0 % 10/14/20 10:08 Procalcitonin 0.49 ng/mL (<0.15) 10/09/20 20:13 Coronavirus (PCR) Positive (Negative) A 10/09/20 Unknown Olivera/IV: Voiding Method Urinal Active Medications - Current Medications Current Medications: Generic Name Dose Route Start Last Admin Trade Name Freq PRN Reason Stop Dose Admin Acetaminophen 650 mg 10/09/20 21:07 Acetaminophen 325 Mg Tab PO Q6H PRN Pain MILD(1-3)/Fever >100.5/NAVA Albuterol 2.5 mg 10/09/20 21:07 Albuterol 2.5 Mg/3 Ml Nebu IH Q3HRT PRN Shortness Of Breath Dexamethasone 8 mg 10/11/20 10:00 10/15/20 09:53 Dexamethasone 4 Mg/Ml Vial IV 10/20/20 10:01 8 mg DAILY LENCHO Administration Enoxaparin Sodium 120 mg 10/10/20 22:00 10/15/20 09:54 Enoxaparin 120 Mg/0.8 Ml Inj SUB-Q 120 mg Q12HR LENCHO Administration Hydromorphone HCl 0.5 mg 10/09/20 21:07 Hydromorphone 1 Mg/1 Ml Inj IV Q12H PRN Pain , Severe (7-10) Oxycodone/Acetaminophen 1 tab 10/09/20 21:07 Oxycodone /Acetaminophen 5-325mg Tab PO Q12H PRN Pain, Moderate (4-6) Sodium Chloride 10 ml 10/09/20 22:00 10/15/20 09:53 Sodium Chloride 0.9% 10 Ml Flush Syringe IV 10 ml BID LENCHO Administration Sodium Chloride 10 ml 10/09/20 21:07 Sodium Chloride 0.9% 10 Ml Flush Syringe IV PRN PRN LINE FLUSH Nutrition/Malnutrition Assess - Dietary Evaluation Nutrition/Malnutrition Findings: Nutrition Notes Start: 10/15/20 08:02 Freq: Status: Active Protocol: Document 10/15/20 08:02 ELSA (Rec: 10/15/20 08:04 ELSA [email or web address]) Nutrition Notes Need for Assessment generated from: LOS Initial or Follow up Brief Note Subjective/Other Information Screen for LOS. Pt reports eating most of his meals. He doesn't eat as much of breakfast due to food prefrences. Pt reports no wt loss. Nutrition Intervention Change Diet Order: Add food prefrences Revisit per MD consult or patient Sign Off request:
--- NOTE | 2020-10-15 20:14 | Consultation ---
History of Present Illness Consult date: 10/15/20 Reason for consult: dyspnea, hypoxemia, pneumonia History of present illness: 60 YO Male with HTN, Obesity Hypoventilation Syndrome presents to ED for evaluation. Patient states that he has experienced shortness of breath over the past 2 days with persistently worsening symptoms over the past 1 day. Patient acknowledges fatigue, malaise, decreased exercise tolerance, body aches, dry cough. EMS was notified and upon arrival the patient was found to be in distress and subsequently transported to [facility] for further care and evaluation of the aforementioned symptoms. The patient was seen and evaluated in the emergency department. Patient was found to have a pulse oximetry of 87% on room air which is consistent with acute hypoxemic respiratory failure. Chest x- ray revealed bilateral pneumonia. The patient was found to have acidosis as well. The patient was admitted to [facility] and initiated on pneumonia protocol as well as coronavirus protocol. Patient denies fever chills chest pain, palpitations, skin rash, recent ill contacts, or known exposure to COVID-19. No prior admission for review. All medication listed at time of admission has been reconciled. Patient reports receiving 1 of 2 doses of the coronavirus vaccine. Patients barba virus PCR is Positive. Patient is alert and awake on Vapotherm 60%. O2 sat is 98%. No complaints of chest pain or shortness of breath. Patient is afebrile. Blood pressure is 122/80, heart rate of 80. Leukocytosis present. D-dimer 6195, Ferritin >2000, LDH 525, CRP 0.70. COVID-19 positive. CXR (10/09/20) showed Significant interval worsening of patchy bilateral pulmonary opacities, compared to 10/01/20. Medications currently are Proventil, Dexamethasone, and Enoxaparin. Past History Past Medical History: hypertension, other (See HPI) Past Surgical History: No surgical history, Other (Reviewed) Social history: single. denies: smoking, alcohol abuse Family history: hypertension Medications and Allergies Allergies Allergy/AdvReac Type Severity Reaction Status Date / Time No Known Allergies Allergy Verified 10/10/20 02:19 Home Medications Medication Instructions Recorded Confirmed Last Taken Type Losartan [Cozaar] 100 mg PO QHS 10/10/20 10/10/20 10/08/20 History Tamsulosin [Flomax] 0.4 mg PO QHS 10/10/20 10/10/2021 History amLODIPine [Norvasc] 10 mg PO QHS 10/10/20 10/10/20 10/08/20 History Active Meds: Active Medications Acetaminophen (Acetaminophen 325 Mg Tab) 650 mg PO Q6H PRN PRN Reason: Pain MILD(1-3)/Fever >100.5/NAVA Albuterol (Albuterol 2.5 Mg/3 Ml Nebu) 2.5 mg IH Q3HRT PRN PRN Reason: Shortness Of Breath Dexamethasone (Dexamethasone 4 Mg/Ml Vial) 8 mg IV DAILY [facility] Stop: 10/20/20 10:01 Last Admin: 10/15/20 09:53 Dose: 8 mg Documented by: Enoxaparin Sodium (Enoxaparin 120 Mg/0.8 Ml Inj) 120 mg SUB-Q Q12HR [facility] Last Admin: 10/15/20 09:54 Dose: 120 mg Documented by: Hydromorphone HCl (Hydromorphone 1 Mg/1 Ml Inj) 0.5 mg IV Q12H PRN PRN Reason: Pain , Severe (7-10) Oxycodone/Acetaminophen (Oxycodone /Acetaminophen 5-325mg Tab) 1 tab PO Q12H PRN PRN Reason: Pain, Moderate (4-6) Sodium Chloride (Sodium Chloride 0.9% 10 Ml Flush Syringe) 10 ml IV BID [facility] Last Admin: 10/15/20 09:53 Dose: 10 ml Documented by: Sodium Chloride (Sodium Chloride 0.9% 10 Ml Flush Syringe) 10 ml IV PRN PRN PRN Reason: LINE FLUSH Review of Systems All systems: negative Physical Examination Vital signs: Vital Signs Temp Pulse Resp BP Pulse Ox 98.7 F 129 H 32 H 156/84 90 10/09/20 18:51 10/09/20 18:51 10/09/20 18:51 10/09/20 18:51 10/09/20 18:51 General appearance: no acute distress, alert, other (Obese) Eyes: non-icteric ENT: oropharynx moist Neck: supple Ascultation: Bilateral: rhonchi Cardiovascular: regular rate and rhythm Gastrointestinal: normoactive bowel sounds, soft Integumentary: normal Extremities: no cyanosis Musculoskeletal: no deformities Gait: other (Patient in bed in MICU at this time.) normal mental status, non-focal exam, pupils equal and round mood appropriate, affect normal Results - Laboratory Findings CBC and BMP: 10/16/20 04:37 10/16/20 04:37 PT/INR, D-dimer D-Dimer 6195.23 ng/mlDDU (0-234) H 10/14/20 10:08 Abnormal lab findings: Abnormal Labs 10/09/20 10/09/20 10/09/20 19:41 19:41 20:13 WBC RDW 12.9 L Seg Neuts % (Manual) 80.0 H Lymphocytes % (Manual) 10.0 L Seg Neutrophils # Man Lymphocytes # (Manual) 0.9 L D-Dimer > 55103 H Sodium 131 L Potassium Chloride 96.2 L Carbon Dioxide 19 L BUN 23 H Creatinine Glucose 125 H Calcium Magnesium 2.50 H Ferritin Total Bilirubin 2.90 H Direct Bilirubin AST 57 H ALT Lactate Dehydrogenase C-Reactive Protein Albumin 3.3 L Coronavirus (PCR) 10/09/20 10/09/20 10/09/20 20:13 20:13 Unknown WBC RDW Seg Neuts % (Manual) Lymphocytes % (Manual) Seg Neutrophils # Man Lymphocytes # (Manual) D-Dimer Sodium Potassium Chloride Carbon Dioxide BUN Creatinine Glucose 118 H Calcium Magnesium Ferritin 8223.0 H Total Bilirubin Direct Bilirubin AST ALT Lactate Dehydrogenase 1517 H C-Reactive Protein 20.80 H Albumin Coronavirus (PCR) Positive A 10/10/20 10/10/20 10/10/20 04:48 04:48 16:32 WBC RDW 12.7 L Seg Neuts % (Manual) Lymphocytes % (Manual) 6.0 L Seg Neutrophils # Man Lymphocytes # (Manual) 0.4 L D-Dimer Sodium 132 L 130 L Potassium Chloride 97.5 L Carbon Dioxide 21 L 16 L BUN 21 H Creatinine 0.6 L Glucose 210 H 199 H Calcium 8.2 L Magnesium Ferritin Total Bilirubin 2.00 H Direct Bilirubin AST 51 H ALT Lactate Dehydrogenase C-Reactive Protein Albumin 3.0 L 2.7 L Coronavirus (PCR) 10/11/20 10/11/20 10/12/20 04:14 04:14 05:21 WBC 12.6 H RDW 12.9 L Seg Neuts % (Manual) 91.0 H Lymphocytes % (Manual) 6.0 L Seg Neutrophils # Man 11.5 H Lymphocytes # (Manual) 0.8 L D-Dimer Sodium 135 L Potassium 5.2 H Chloride Carbon Dioxide 19 L BUN Creatinine 0.7 L 0.7 L Glucose 127 H 105 H Calcium 8.0 L Magnesium Ferritin Total Bilirubin Direct Bilirubin AST 47 H 76 H ALT 115 H Lactate Dehydrogenase C-Reactive Protein Albumin 3.2 L 2.9 L Coronavirus (PCR) 10/13/20 10/14/20 10/14/20 04:48 10:08 10:08 WBC RDW Seg Neuts % (Manual) Lymphocytes % (Manual) Seg Neutrophils # Man Lymphocytes # (Manual) D-Dimer 6195.23 H Sodium 136 L Potassium Chloride Carbon Dioxide BUN Creatinine 0.6 L Glucose 103 H Calcium Magnesium Ferritin > 2000.0 H Total Bilirubin Direct Bilirubin AST 151 H ALT 228 H Lactate Dehydrogenase C-Reactive Protein Albumin 3.2 L Coronavirus (PCR) 10/14/20 10/14/20 10/15/20 10:08 10:08 05:39 WBC 13.1 H RDW Seg Neuts % (Manual) Lymphocytes % (Manual) 3.0 L Seg Neutrophils # Man 12.2 H Lymphocytes # (Manual) 0.4 L D-Dimer Sodium Potassium Chloride Carbon Dioxide BUN Creatinine Glucose Calcium Magnesium Ferritin Total Bilirubin Direct Bilirubin 0.3 H AST 135 H ALT 287 H Lactate Dehydrogenase 525 H C-Reactive Protein Albumin 3.3 L Coronavirus (PCR) 10/15/20 05:39 WBC RDW Seg Neuts % (Manual) Lymphocytes % (Manual) Seg Neutrophils # Man Lymphocytes # (Manual) D-Dimer Sodium Potassium 5.3 H Chloride Carbon Dioxide BUN 21 H Creatinine Glucose 113 H Calcium Magnesium Ferritin Total Bilirubin Direct Bilirubin AST ALT Lactate Dehydrogenase C-Reactive Protein Albumin Coronavirus (PCR) - Diagnostic Findings Chest x-ray: report reviewed, image reviewed Additional studies: CHEST 2 VIEWS INDICATION / CLINICAL INFORMATION: Dyspnea. COMPARISON: 10/01/2020 FINDINGS: SUPPORT DEVICES: None. HEART / MEDIASTINUM: No significant abnormality. LUNGS / PLEURA: Significant interval worsening of patchy bilateral pulmonary opacities. ADDITIONAL FINDINGS: No significant additional findings. IMPRESSION: 1. Significant interval worsening of patchy bilateral pulmonary opacities. Assessment and Plan 60 YO Male with HTN, Obesity Hypoventilation Syndrome presents to ED for eval uation. Patient states that he has experienced shortness of breath over the past 2 days with persistently worsening symptoms over the past 1 day. Patient acknowledges fatigue, malaise, decreased exercise tolerance, body aches, dry cough. EMS was notified and upon arrival the patient was found to be in distress and subsequently transported to [facility] for further care and evaluation of the aforementioned symptoms. The patient was seen and evaluated in the emergency department. Patient was found to have a pulse oximetry of 87% on room air which is consistent with acute hypoxemic respiratory failure. Chest x- ray revealed bilateral pneumonia. The patient was found to have acidosis as well. The patient was admitted to [facility] and initiated on pneumonia protocol as well as coronavirus protocol. Patient denies fever chills chest pain, palpitations, skin rash, recent ill contacts, or known exposure to COVID-19. No prior admission for review. All medication listed at time of admission has been reconciled. Patient reports receiving 1 of 2 doses of the coronavirus vaccine. Patients barba virus PCR is Positive. Patient is alert and awake on Vapotherm 60%. O2 sat is 98%. No complaints of chest pain or shortness of breath. Patient is afebrile. Blood pressure is 122/80, heart rate of 80. Leukocytosis present. D-dimer 6195, Ferritin >2000, LDH 525, CRP 0.70. COVID-19 positive. CXR (10/09/20) showed Significant interval worsening of patchy bilateral pulmonary opacities, compared to 10/01/20. Medications currently are Proventil, Dexamethasone, and Enoxaparin. I spent critical care time of 50 minutes, reviewing the chart, examine the patient, review chest xray and Lbs, talking to the nursing staff, respiratory therapist in this critically COVID 19 patient. - Patient Problems (1) Acute hypoxemic respiratory failure Current Visit: Yes Status: Acute Plan to address problem: Patient is on Vapotherm, FIO2 60% Continue dexamethasone. Continue Lovenox. Albuterol inhaler 2 puffs po q 6 hours prn for shortness of breath. Recommend GI prophylaxis. (2) 2019 novel coronavirus disease (COVID-19) Current Visit: Yes Status: Acute Plan to address problem: Patient is on Dexamethasone. Patient is on S/C Lovenox. Management as per ID. (3) Atypical pneumonia Current Visit: Yes Status: Acute Plan to address problem: Antibiotics as per ID.
[2020-10-16 05:04] LABS: Hematocrit 41.1 % (35.5-45.6); Hemoglobin 13.3 gm/dl (11.8-15.2); Mean Corpuscular HGB Conc 32 % (32-34); Mean Corpuscular Volume 88 fl (84-94); Platelet Count 360 K/mm3 (140-440); Red Cell Distribution Width 13.6 % (13.2-15.2)
[2020-10-16 05:21] LABS: BUN/Creatinine Ratio 33; Blood Urea Nitrogen 26 mg/dL (9-20); Calcium 9.3 mg/dL (8.4-10.2); Hemolysis Index 5
[2020-10-16 06:11] LABS: Platelet Estimate Consistent w Auto; RBC Morphology Normal; Total Cells Counted 100
[2020-10-16] MEDS: dexAMETHasone 4 MG/ML VIAL IV SCH (11:35)
[2020-10-16] MEDS: ENOXAPARIN 120 MG/0.8 ML INJ SUB-Q SCH ×2 (12:46→21:45)
--- NOTE | 2020-10-16 15:01 | Progress Note ---
Assessment and Plan Assessment and plan: 1. Acute hypoxemic respiratory failure Continue with high flow nasal cannula titrate down as patient tolerates -Continue with dexamethasone x10 days, remdesivir x5 days, status post Actemra, Continue full dose anticoagulation, will consider CTA chest Inflammatory markers every 48 hours Pulmonary consult placed 2. COVID pneumonia. - management as above ID following 3. Sepsis. Patient meets criteria given the tachycardia, tachypnea and diagnosis of bilateral pneumonia. - managmeent as above 4. COVID-19 infection. Covid PCR + 10/09/2020 - management as above Hospital Course to date. 10/10/2020. Patient currently with high flow nasal cannula with oxygen flow rate of 40 and FiO2 90%. ID consulted. Await COVID-19 testing. Start dexamethasone 6 mg IV daily. Patient may need higher dose given obesity. Await ID recommendations regarding remdesivir as well as Covid testing. Patient with significantly elevated inflammatory markers D-dimer greater than 10,000, ferritin 8000, LDH 1500 and CRP 20. Check CTA of chest when patient medically stable. Start treatment dose of Lovenox given the extremely high D-dimer. Hold on IV antibiotics given the normal procalcitonin. 10/11/2020. Patient currently with HFNC of 30 L with FiO2 of 70%. Covid PCR + 10/09/2020. Continue dexamethasone and remdesivir for 10 days and 5 days respectively. Actemra was given because of high CRP and HFNC. Continue to monitor anti-inflammatory markers of ferritin, D-dimer, CRP and LDH. Full dose anticoagulation given extremely high D-dimer. Continue prone positioning as available. CTA of chest when patient more stable. 10/12/2020. Patient currently with HFNC 30 L / 100%. Continue dexamethasone and remdesivir per ID recommendations continue to trend anti-inflammatory markers. Continue Full dose anticoagulation given extremely high D-dimer. Continue prone positioning as available. CTA of chest when patient more stable. 10/13/2020. Patient currently with HFNC 30 L / 100%. Continue dexamethasone and remdesivir per ID recommendations continue to trend anti-inflammatory markers. S/p Actemra x1 given high CRP and HFNC. Continue Full dose anticoagulation given extremely high D-dimer. Continue prone positioning as available. CTA of chest when patient more stable. 10/14/2020. Patient still with HFNC 30 L / 100%. Continue dexamethasone and remdesivir per ID recommendations continue to trend anti-inflammatory markers. S/p Actemra x1 given high CRP and HFNC. Continue Full dose anticoagulation with Lovenox given extremely high D-dimer. Continue prone positioning as available. CTA of chest when patient more stable. 10/15/2020: Patient currently on HFNC 20L/ 60%. Continue covid standard therapies. trending anti inflammatory markers q48hrs. Full dose anticoagulation disconitnued. Switched to DVT prophylaxis dosing. ordered physical therapy. patient appears strong enough to mobilize within room. Infectious disease following. Pulmonary consulted. 10/16/2020: Discussed with [facility]MC[facility] Rn this AM. Will attempt to wean off of HFNC as patient/saturations tolerate. Okay with sat > 90 as long as remainder of vitals stable. Advised to do trial with nasal cannula if patient tolerates can d/c HFNC. History Interval history: No acute complaints on encounter. Hospitalist Physical - Physical exam Narrative exam: Physical Exam: Constitutional: Alert, cooperative. No acute distress Head, Ears, Nose: Normocephalic, atraumatic. External ears, nose normal Eyes: Conjunctivae/corneas clear. No icterus. No ptosis. Neck: Supple, no meningeal signs Oral: dentition fair, no thrush Cardiovascular: S1, S2 normal. Respiratory: Good air entry, imrpovement in lung exam. high flow NC in place GI: Soft, non-tender; bowel sounds normal. No peritoneal signs. Musculoskeletal: No pedal edema, no cyanosis. Skin: No rash or abscess Hem/Lymphatic: No palpable cervical or supraclavicular nodes. No lymphangitis Psych: Mood ok. Affect normal Neurological: Awake, alert, oriented. No gross abnormality - Constitutional Vitals: Temp Pulse Resp BP Pulse Ox 98.1 F 85 23 125/78 92 10/16/20 08:00 10/16/20 14:00 10/16/20 14:00 10/16/20 14:00 10/16/20 14:00 General appearance: Present: mild distress, obese HEART Score - HEART Score Troponin: Troponin T < 0.010 ng/mL (0.00-0.029) 10/09/20 19:41 Results - Labs CBC & Chem 7: 10/16/20 04:37 10/16/20 04:37 Labs: Laboratory Last Values WBC 13.5 K/mm3 (4.5-11.0) H 10/16/20 04:37 RBC 4.70 M/mm3 (3.65-5.03) 10/16/20 04:37 Hgb 13.3 gm/dl (11.8-15.2) 10/16/20 04:37 Hct 41.1 % (35.5-45.6) 10/16/20 04:37 MCV 88 fl (84-94) 10/16/20 04:37 MCH 28 pg (28-32) 10/16/20 04:37 MCHC 32 % (32-34) 10/16/20 04:37 RDW 13.6 % (13.2-15.2) 10/16/20 04:37 Plt Count 360 K/mm3 (140-440) 10/16/20 04:37 Add Manual Diff Complete 10/16/20 04:37 Total Counted 100 10/16/20 04:37 Seg Neuts % (Manual) 82.0 % (40.0-70.0) H 10/16/20 04:37 Band Neutrophils % 3.0 % 10/15/20 05:39 Lymphocytes % (Manual) 8.0 % (13.4-35.0) L 10/16/20 04:37 Monocytes % (Manual) 8.0 % (0.0-7.3) H 10/16/20 04:37 Metamyelocytes % 2.0 % 10/16/20 04:37 Nucleated RBC % Not Reportable 10/16/20 04:37 Seg Neutrophils # Man 11.1 K/mm3 (1.8-7.7) H 10/16/20 04:37 Band Neutrophils # 0.0 K/mm3 10/16/20 04:37 Lymphocytes # (Manual) 1.1 K/mm3 (1.2-5.4) L 10/16/20 04:37 Abs React Lymphs (Man) 0.0 K/mm3 10/16/20 04:37 Monocytes # (Manual) 1.1 K/mm3 (0.0-0.8) H 10/16/20 04:37 Eosinophils # (Manual) 0.0 K/mm3 (0.0-0.4) 10/16/20 04:37 Basophils # (Manual) 0.0 K/mm3 (0.0-0.1) 10/16/20 04:37 Metamyelocytes # 0.3 K/mm3 10/16/20 04:37 Myelocytes # 0.0 K/mm3 10/16/20 04:37 Promyelocytes # 0.0 K/mm3 10/16/20 04:37 Blast Cells # 0.0 K/mm3 10/16/20 04:37 WBC Morphology Not Reportable 10/16/20 04:37 Hypersegmented Neuts Not Reportable 10/16/20 04:37 Hyposegmented Neuts Not Reportable 10/16/20 04:37 Hypogranular Neuts Not Reportable 10/16/20 04:37 Smudge Cells Not Reportable 10/16/20 04:37 Toxic Granulation Not Reportable 10/16/20 04:37 Toxic Vacuolation Not Reportable 10/16/20 04:37 Dohle Bodies Not Reportable 10/16/20 04:37 Pelger-Huet Anomaly Not Reportable 10/16/20 04:37 Kiya Rods Not Reportable 10/16/20 04:37 Platelet Estimate Consistent w auto 10/16/20 04:37 Clumped Platelets Not Reportable 10/16/20 04:37 Plt Clumps, EDTA Not Reportable 10/16/20 04:37 Large Platelets Not Reportable 10/16/20 04:37 Giant Platelets Not Reportable 10/16/20 04:37 Platelet Satelliting Not Reportable 10/16/20 04:37 Plt Morphology Comment Not Reportable 10/16/20 04:37 RBC Morphology Normal 10/16/20 04:37 Dimorphic RBCs Not Reportable 10/16/20 04:37 Polychromasia Not Reportable 10/16/20 04:37 Hypochromasia Not Reportable 10/16/20 04:37 Poikilocytosis Not Reportable 10/16/20 04:37 Anisocytosis Not Reportable 10/16/20 04:37 Microcytosis Not Reportable 10/16/20 04:37 Macrocytosis Not Reportable 10/16/20 04:37 Spherocytes Not Reportable 10/16/20 04:37 Pappenheimer Bodies Not Reportable 10/16/20 04:37 Sickle Cells Not Reportable 10/16/20 04:37 Target Cells Not Reportable 10/16/20 04:37 Tear Drop Cells Not Reportable 10/16/20 04:37 Ovalocytes Not Reportable 10/16/20 04:37 Helmet Cells Not Reportable 10/16/20 04:37 Dia-Calamus Bodies Not Reportable 10/16/20 04:37 Maria Stein Rings Not Reportable 10/16/20 04:37 Amanda Cells Not Reportable 10/16/20 04:37 Bite Cells Not Reportable 10/16/20 04:37 Crenated Cell Not Reportable 10/16/20 04:37 Elliptocytes Not Reportable 10/16/20 04:37 Acanthocytes (Spur) Not Reportable 10/16/20 04:37 Rouleaux Not Reportable 10/16/20 04:37 Hemoglobin C Crystals Not Reportable 10/16/20 04:37 Schistocytes Not Reportable 10/16/20 04:37 Malaria parasites Not Reportable 10/16/20 04:37 Mode Bodies Not Reportable 10/16/20 04:37 Hem Pathologist Commnt No 10/16/20 04:37 D-Dimer 5191.50 ng/mlDDU (0-234) H 10/16/20 04:37 Sodium 135 mmol/L (137-145) L 10/16/20 04:37 Potassium 5.3 mmol/L (3.6-5.0) H 10/16/20 04:37 Chloride 100.9 mmol/L (98-107) 10/16/20 04:37 Carbon Dioxide 25 mmol/L (22-30) 10/16/20 04:37 Anion Gap 14 mmol/L 10/16/20 04:37 BUN 26 mg/dL (9-20) H 10/16/20 04:37 Creatinine 0.8 mg/dL (0.8-1.3) 10/16/20 04:37 Estimated GFR > 60 ml/min 10/16/20 04:37 BUN/Creatinine Ratio 33 % 10/16/20 04:37 Glucose 121 mg/dL (75-100) H 10/16/20 04:37 Calcium 9.3 mg/dL (8.4-10.2) 10/16/20 04:37 Magnesium 2.50 mg/dL (1.7-2.3) H 10/09/20 19:41 Ferritin 4238.0 ng/mL (30.0-300.0) H 10/16/20 04:37 Total Bilirubin 0.70 mg/dL (0.1-1.2) 10/14/20 10:08 Direct Bilirubin 0.3 mg/dL (0-0.2) H 10/14/20 10:08 Indirect Bilirubin 0.4 mg/dL 10/14/20 10:08 AST 135 units/L (5-40) H 10/14/20 10:08 ALT 287 units/L (7-56) H 10/14/20 10:08 Alkaline Phosphatase 80 units/L (35-129) 10/14/20 10:08 Lactate Dehydrogenase 437 units/L (91-180) H 10/16/20 04:37 Troponin T < 0.010 ng/mL (0.00-0.029) 10/09/20 19:41 C-Reactive Protein 0.40 mg/dL (0.00-1.30) 10/16/20 04:37 Total Protein 6.6 g/dL (6.3-8.2) 10/14/20 10:08 Albumin 3.3 g/dL (3.9-5) L 10/14/20 10:08 Albumin/Globulin Ratio 1.0 % 10/14/20 10:08 Procalcitonin 0.49 ng/mL (<0.15) 10/09/20 20:13 Coronavirus (PCR) Positive (Negative) A 10/09/20 Unknown Olivera/IV: Voiding Method Urinal Active Medications - Current Medications Current Medications: Generic Name Dose Route Start Last Admin Trade Name Freq PRN Reason Stop Dose Admin Acetaminophen 650 mg 10/09/20 21:07 Acetaminophen 325 Mg Tab PO Q6H PRN Pain MILD(1-3)/Fever >100.5/NAVA Albuterol 2.5 mg 10/09/20 21:07 Albuterol 2.5 Mg/3 Ml Nebu IH Q3HRT PRN Shortness Of Breath Dexamethasone 8 mg 10/11/20 10:00 10/16/20 11:35 Dexamethasone 4 Mg/Ml Vial IV 10/20/20 10:01 8 mg DAILY LENCHO Administration Enoxaparin Sodium 120 mg 10/10/20 22:00 10/16/20 12:46 Enoxaparin 120 Mg/0.8 Ml Inj SUB-Q 120 mg Q12HR LENCHO Administration Hydromorphone HCl 0.5 mg 10/09/20 21:07 Hydromorphone 1 Mg/1 Ml Inj IV Q12H PRN Pain , Severe (7-10) Oxycodone/Acetaminophen 1 tab 10/09/20 21:07 Oxycodone /Acetaminophen 5-325mg Tab PO Q12H PRN Pain, Moderate (4-6) Sodium Chloride 10 ml 10/09/20 22:00 10/15/20 22:04 Sodium Chloride 0.9% 10 Ml Flush Syringe IV 10 ml BID LENCHO Administration Sodium Chloride 10 ml 10/09/20 21:07 Sodium Chloride 0.9% 10 Ml Flush Syringe IV PRN PRN LINE FLUSH Nutrition/Malnutrition Assess - Dietary Evaluation Nutrition/Malnutrition Findings: Nutrition Notes Start: 10/15/20 08:02 Freq: Status: Active Protocol: Document 10/15/20 08:02 ELSA (Rec: 10/15/20 08:04 ELSA [id number]) Nutrition Notes Need for Assessment generated from: LOS Initial or Follow up Brief Note Subjective/Other Information Screen for LOS. Pt reports eating most of his meals. He doesn't eat as much of breakfast due to food prefrences. Pt reports no wt loss. Nutrition Intervention Change Diet Order: Add food prefrences Revisit per MD consult or patient Sign Off request:
--- NOTE | 2020-10-16 15:49 | Progress Note ---
Assessment and Plan Cultures: Blood culture no growth so far COVID PCR positive A/P: 60 yo M PMHx HTN, obesity admitted as COVID. #COVID pneumonia: with bilateral pneumonia. Highly elevated inflammatory markers. s/p Actemra #Acute hypoxemic respiratory failure: Likely secondary to COVID-19 infection. Currently on HFNC #Obesity Recs: -Dexamethasone per pulmonary for 10 days -Remdesivir 200 mg IV q day x 1 followed by 100 mg IV q day x 4 days -Obtain q48-72h inflammatory markers - ferritin, Ddimer, CRP, LDH -Anticoagulation per hospital protocol -Proning as able Thank you for the consult, we will continue to follow. Marcelina Grace MD [facility] O: [phone] F: [phone] Subjective Date of service: 10/16/20 Interval history: Afebrile, white count 13.5. Currently on 20 L nasal cannula Objective - Exam Narrative Exam: physical exam deferred to reduce risk of transmission of COVID-19. Please refer to primary team's note. - Constitutional Vitals: Vital Signs Temp Pulse Resp BP Pulse Ox 98.1 F 94 H 22 130/89 98 10/16/20 08:00 10/16/20 15:01 10/16/20 15:01 10/16/20 15:01 10/16/20 15:01 Temperature -Last 24 Hours Temperature 98.1 F Temperature 97.7 F Temperature 98.4 F - Labs CBC & Chem 7: 10/16/20 04:37 10/16/20 04:37 Labs: Abnormal lab results 10/16/20 10/16/20 10/16/20 Range/Units 04:37 04:37 04:37 WBC 13.5 H (4.5-11.0) K/mm3 Seg Neuts % (Manual) 82.0 H (40.0-70.0) % Lymphocytes % (Manual) 8.0 L (13.4-35.0) % Monocytes % (Manual) 8.0 H (0.0-7.3) % Seg Neutrophils # Man 11.1 H (1.8-7.7) K/mm3 Lymphocytes # (Manual) 1.1 L (1.2-5.4) K/mm3 Monocytes # (Manual) 1.1 H (0.0-0.8) K/mm3 D-Dimer 5191.50 H (0-234) ng/mlDDU Sodium 135 L (137-145) mmol/L Potassium 5.3 H (3.6-5.0) mmol/L BUN 26 H (9-20) mg/dL Glucose 121 H (75-100) mg/dL Ferritin (30.0-300.0) ng/mL Lactate Dehydrogenase 437 H (91-180) units/L 10/16/20 Range/Units 04:37 WBC (4.5-11.0) K/mm3 Seg Neuts % (Manual) (40.0-70.0) % Lymphocytes % (Manual) (13.4-35.0) % Monocytes % (Manual) (0.0-7.3) % Seg Neutrophils # Man (1.8-7.7) K/mm3 Lymphocytes # (Manual) (1.2-5.4) K/mm3 Monocytes # (Manual) (0.0-0.8) K/mm3 D-Dimer (0-234) ng/mlDDU Sodium (137-145) mmol/L Potassium (3.6-5.0) mmol/L BUN (9-20) mg/dL Glucose (75-100) mg/dL Ferritin 4238.0 H (30.0-300.0) ng/mL Lactate Dehydrogenase (91-180) units/L
--- NOTE | 2020-10-16 20:24 | Progress Note ---
Assessment and Plan 60 YO Male with HTN, Obesity Hypoventilation Syndrome presents to ED for evaluation. Patient states that he has experienced shortness of breath over the past 2 days with persistently worsening symptoms over the past 1 day. Patient acknowledges fatigue, malaise, decreased exercise tolerance, body aches, dry cough. EMS was notified and upon arrival the patient was found to be in distress and subsequently transported to [facility] for further care and evaluation of the aforementioned symptoms. [facility] Patient was found to have a pulse oximetry of 87% on room air which is consistent with acute hypoxemic respiratory failure. Chest x-ray revealed bilateral pneumonia. The patient was found to have acidosis as well. The patient was admitted to [facility] and initiated on pneumonia protocol as well as coronavirus protocol. Patient denies fever chills chest pain, palpitations, skin rash, recent ill contacts, or known exposure to COVID-19. No prior admission for review. All medication listed at time of admission has been reconciled. Patient reports receiving 1 of 2 doses of the coronavirus vaccine. Patients barba virus PCR is Positive. Patient is alert and awake on Vapotherm 60%. O2 sat is 98%. No complaints of chest pain or shortness of breath. Patient is afebrile. Blood pressure is 129/57, heart rate of 81. Has Leukocytosis D-dimer 6195, Ferritin >2000, LDH 525, CRP 0.70. COVID-19 positive. CXR (10/09/20) showed Significant interval worsening of patchy bilateral pulmonary opacities, compared to 10/01/20. Medications currently are Proventil, Dexamethasone, and Enoxaparin. I spent critical care time of 35 minutes, reviewing the chart, examine the patient, review chest xray and Lbs, talking to the nursing staff, respiratory therapist in this critically COVID 19 patient. - Patient Problems (1) Acute hypoxemic respiratory failure Current Visit: Yes Status: Acute Plan to address problem: Patient is on Vapotherm, FIO2 60% Continue dexamethasone. Continue Lovenox. Albuterol inhaler 2 puffs po q 6 hours prn for shortness of breath. Recommend GI prophylaxis. (2) 2019 novel coronavirus disease (COVID-19) Current Visit: Yes Status: Acute Plan to address problem: Patient is on Dexamethasone. Patient is on S/C Lovenox. Management as per ID. (3) Atypical pneumonia Current Visit: Yes Status: Acute Plan to address problem: Antibiotics as per ID. Subjective Date of service: 10/16/20 Interval history: 60 YO Male with HTN, Obesity Hypoventilation Syndrome presents to ED for evaluation. Patient states that he has experienced shortness of breath over the past 2 days with persistently worsening symptoms over the past 1 day. Patient acknowledges fatigue, malaise, decreased exercise tolerance, body aches, dry cough. EMS was notified and upon arrival the patient was found to be in dis tress and subsequently transported to [facility] for further care and evaluation of the aforementioned symptoms. The patient was seen and evaluated in the emergency department. Patient was found to have a pulse oximetry of 87% on room air which is consistent with acute hypoxemic respiratory failure. Chest x-ray revealed bilateral pneumonia. The patient was found to have acidosis as well. The patient was admitted to [facility] and initiated on pneumonia protocol as well as coronavirus protocol. Patient denies fever chills chest pain, palpitations, skin rash, recent ill contacts, or known exposure to COVID-19. No prior admission for review. All medication listed at time of admission has been rosie nciled. Patient reports receiving 1 of 2 doses of the coronavirus vaccine. Patients barba virus PCR is Positive. Patient is alert and awake on Vapotherm 60%. O2 sat is 98%. No complaints of chest pain or shortness of breath. Patient is afebrile. Blood pressure is 129/57, heart rate of 81. Has Leukocytosis D-dimer 6195, Ferritin >2000, LDH 525, CRP 0.70. COVID-19 positive. CXR (10/09/20) showed Significant interval worsening of patchy bilateral pulmonary opacities, compared to 10/01/20. Medications currently are Proventil, Dexamethasone, and Enoxaparin. Objective Vital Signs - 12hr 10/16/20 10/16/20 10/16/20 09:00 10:00 11:00 Temperature Pulse Rate 81 81 83 Pulse Rate [ From Monitor] Respiratory 18 21 22 Rate Blood Pressure 129/57 118/80 105/84 O2 Sat by Pulse 97 98 96 Oximetry 10/16/20 10/16/20 10/16/20 12:00 13:01 14:00 Temperature Pulse Rate 84 77 85 Pulse Rate [ 82 From Monitor] Respiratory 24 17 23 Rate Blood Pressure 107/83 128/83 125/78 O2 Sat by Pulse 96 96 92 Oximetry 10/16/20 10/16/20 10/16/20 15:01 16:00 17:01 Temperature 97.0 F L Pulse Rate 94 H 89 89 Pulse Rate [ 89 From Monitor] Respiratory 22 22 19 Rate Blood Pressure 130/89 113/74 105/63 O2 Sat by Pulse 98 92 97 Oximetry 10/16/20 10/16/20 10/16/20 17:09 18:01 20:00 Temperature 97.6 F Pulse Rate 101 H Pulse Rate [ From Monitor] Respiratory 28 H Rate Blood Pressure 105/63 O2 Sat by Pulse 97 98 Oximetry Constitutional: no acute distress, alert, other (Obese) Eyes: non-icteric ENT: oropharynx moist Neck: supple Ascultation: Bilateral: rhonchi Cardiovascular: regular rate and rhythm Gastrointestinal: normoactive bowel sounds, soft Integumentary: normal Extremities: no cyanosis Neurologic: normal mental status, non-focal exam, pupils equal and round Psychiatric: mood appropriate, affect normal CBC and BMP: 10/16/20 04:37 10/16/20 04:37 ABG, PT/INR, D-dimer: PT/INR, D-dimer D-Dimer 5191.50 ng/mlDDU (0-234) H 10/16/20 04:37 Abnormal lab findings: Abnormal Labs 10/09/20 10/09/20 10/09/20 19:41 19:41 20:13 WBC RDW 12.9 L Seg Neuts % (Manual) 80.0 H Lymphocytes % (Manual) 10.0 L Monocytes % (Manual) Seg Neutrophils # Man Lymphocytes # (Manual) 0.9 L Monocytes # (Manual) D-Dimer > 57928 H Sodium 131 L Potassium Chloride 96.2 L Carbon Dioxide 19 L BUN 23 H Creatinine Glucose 125 H Calcium Magnesium 2.50 H Ferritin Total Bilirubin 2.90 H Direct Bilirubin AST 57 H ALT Lactate Dehydrogenase C-Reactive Protein Albumin 3.3 L Coronavirus (PCR) 10/09/20 10/09/20 10/09/20 20:13 20:13 Unknown WBC RDW Seg Neuts % (Manual) Lymphocytes % (Manual) Monocytes % (Manual) Seg Neutrophils # Man Lymphocytes # (Manual) Monocytes # (Manual) D-Dimer Sodium Potassium Chloride Carbon Dioxide BUN Creatinine Glucose 118 H Calcium Magnesium Ferritin 8223.0 H Total Bilirubin Direct Bilirubin AST ALT Lactate Dehydrogenase 1517 H C-Reactive Protein 20.80 H Albumin Coronavirus (PCR) Positive A 10/10/20 10/10/20 10/10/20 04:48 04:48 16:32 WBC RDW 12.7 L Seg Neuts % (Manual) Lymphocytes % (Manual) 6.0 L Monocytes % (Manual) Seg Neutrophils # Man Lymphocytes # (Manual) 0.4 L Monocytes # (Manual) D-Dimer Sodium 132 L 130 L Potassium Chloride 97.5 L Carbon Dioxide 21 L 16 L BUN 21 H Creatinine 0.6 L Glucose 210 H 199 H Calcium 8.2 L Magnesium Ferritin Total Bilirubin 2.00 H Direct Bilirubin AST 51 H ALT Lactate Dehydrogenase C-Reactive Protein Albumin 3.0 L 2.7 L Coronavirus (PCR) 10/11/20 10/11/20 10/12/20 04:14 04:14 05:21 WBC 12.6 H RDW 12.9 L Seg Neuts % (Manual) 91.0 H Lymphocytes % (Manual) 6.0 L Monocytes % (Manual) Seg Neutrophils # Man 11.5 H Lymphocytes # (Manual) 0.8 L Monocytes # (Manual) D-Dimer Sodium 135 L Potassium 5.2 H Chloride Carbon Dioxide 19 L BUN Creatinine 0.7 L 0.7 L Glucose 127 H 105 H Calcium 8.0 L Magnesium Ferritin Total Bilirubin Direct Bilirubin AST 47 H 76 H ALT 115 H Lactate Dehydrogenase C-Reactive Protein Albumin 3.2 L 2.9 L Coronavirus (PCR) 10/13/20 10/14/20 10/14/20 04:48 10:08 10:08 WBC RDW Seg Neuts % (Manual) Lymphocytes % (Manual) Monocytes % (Manual) Seg Neutrophils # Man Lymphocytes # (Manual) Monocytes # (Manual) D-Dimer 6195.23 H Sodium 136 L Potassium Chloride Carbon Dioxide BUN Creatinine 0.6 L Glucose 103 H Calcium Magnesium Ferritin > 2000.0 H Total Bilirubin Direct Bilirubin AST 151 H ALT 228 H Lactate Dehydrogenase C-Reactive Protein Albumin 3.2 L Coronavirus (PCR) 10/14/20 10/14/20 10/15/20 10:08 10:08 05:39 WBC 13.1 H RDW Seg Neuts % (Manual) Lymphocytes % (Manual) 3.0 L Monocytes % (Manual) Seg Neutrophils # Man 12.2 H Lymphocytes # (Manual) 0.4 L Monocytes # (Manual) D-Dimer Sodium Potassium Chloride Carbon Dioxide BUN Creatinine Glucose Calcium Magnesium Ferritin Total Bilirubin Direct Bilirubin 0.3 H AST 135 H ALT 287 H Lactate Dehydrogenase 525 H C-Reactive Protein Albumin 3.3 L Coronavirus (PCR) 10/15/20 10/16/20 10/16/20 05:39 04:37 04:37 WBC 13.5 H RDW Seg Neuts % (Manual) 82.0 H Lymphocytes % (Manual) 8.0 L Monocytes % (Manual) 8.0 H Seg Neutrophils # Man 11.1 H Lymphocytes # (Manual) 1.1 L Monocytes # (Manual) 1.1 H D-Dimer 5191.50 H Sodium Potassium 5.3 H Chloride Carbon Dioxide BUN 21 H Creatinine Glucose 113 H Calcium Magnesium Ferritin Total Bilirubin Direct Bilirubin AST ALT Lactate Dehydrogenase C-Reactive Protein Albumin Coronavirus (PCR) 10/16/20 10/16/20 04:37 04:37 WBC RDW Seg Neuts % (Manual) Lymphocytes % (Manual) Monocytes % (Manual) Seg Neutrophils # Man Lymphocytes # (Manual) Monocytes # (Manual) D-Dimer Sodium 135 L Potassium 5.3 H Chloride Carbon Dioxide BUN 26 H Creatinine Glucose 121 H Calcium Magnesium Ferritin 4238.0 H Total Bilirubin Direct Bilirubin AST ALT Lactate Dehydrogenase 437 H C-Reactive Protein Albumin Coronavirus (PCR)
[2020-10-17] MEDS ORDERED: SENNOSIDES ORAL LIQD 8.8 MG/5 ML ORAL LIQD PO PRN (10:26)
[2020-10-17] MEDS: dexAMETHasone 4 MG/ML VIAL IV SCH (10:51)
[2020-10-17] MEDS: ENOXAPARIN 120 MG/0.8 ML INJ SUB-Q SCH ×2 (10:52→21:02)
--- NOTE | 2020-10-17 13:56 | Progress Note ---
Assessment and Plan Assessment and plan: 1. Acute hypoxemic respiratory failure Continue with nasal cannula at 4 L titrate down as patient tolerates -Continue with dexamethasone x10 days, remdesivir x5 days, status post Actemra, Continue full dose anticoagulation, will consider CTA chest Inflammatory markers every 48 hours Pulmonary consult placed, will follow recs 2. COVID pneumonia. - management as above ID following, will follow recs 3. Sepsis. Patient meets criteria given the tachycardia, tachypnea and diagnosis of bilateral pneumonia. - managmeent as above 4. COVID-19 infection. Covid PCR + 10/09/2020 - management as above Hospital Course to date. 10/10/2020. Patient currently with high flow nasal cannula with oxygen flow rate of 40 and FiO2 90%. ID consulted. Await COVID-19 testing. Start dexamethasone 6 mg IV daily. Patient may need higher dose given obesity. Await ID recommendations regarding remdesivir as well as Covid testing. Patient with significantly elevated inflammatory markers D-dimer greater than 10,000, ferritin 8000, LDH 1500 and CRP 20. Check CTA of chest when patient medically stable. Start treatment dose of Lovenox given the extremely high D-dimer. Hold on IV antibiotics given the normal procalcitonin. 10/11/2020. Patient currently with HFNC of 30 L with FiO2 of 70%. Covid PCR + 10/09/2020. Continue dexamethasone and remdesivir for 10 days and 5 days respec tively. Actemra was given because of high CRP and HFNC. Continue to monitor anti-inflammatory markers of ferritin, D-dimer, CRP and LDH. Full dose anticoagulation given extremely high D-dimer. Continue prone positioning as available. CTA of chest when patient more stable. 10/12/2020. Patient currently with HFNC 30 L / 100%. Continue dexamethasone and remdesivir per ID recommendations continue to trend anti-inflammatory markers. Continue Full dose anticoagulation given extremely high D-dimer. Continue prone positioning as available. CTA of chest when patient more stable. 10/13/2020. Patient currently with HFNC 30 L / 100%. Continue dexamethasone and remdesivir per ID recommendations continue to trend anti-inflammatory markers. S/p Actemra x1 given high CRP and HFNC. Continue Full dose anticoagulation given extremely high D-dimer. Continue prone positioning as available. CTA of chest when patient more stable. 10/14/2020. Patient still with HFNC 30 L / 100%. Continue dexamethasone and remdesivir per ID recommendations continue to trend anti-inflammatory markers. S/p Actemra x1 given high CRP and HFNC. Continue Full dose anticoagulation with Lovenox given extremely high D-dimer. Continue prone positioning as available. CTA of chest when patient more stable. 10/15/2020: Patient currently on HFNC 20L/ 60%. Continue covid standard therapies. trending anti inflammatory markers q48hrs. Full dose anticoagulation disconitnued. Switched to DVT prophylaxis dosing. ordered physical therapy. patient appears strong enough to mobilize within room. Infectious disease follo wing. Pulmonary consulted. 10/16/2020: Discussed with [facility] Rn this AM. Will attempt to wean off of HFNC as patient/saturations tolerate. Okay with sat > 90 as long as remainder of vitals stable. Advised to do trial with nasal cannula if patient tolerates can d/c HFNC. 10/17/2020: Patient successfully transitioned to 4 L nasal cannula. He can be downgraded to a medical floor. Will work with case advocate for set up of likely home oxygen. Will work on discharge plan with CM. Anticipate DC in the next 1 to 2 days. History Interval history: Improve clinically. Was transitioned from high flow nasal cannula to 4 L NC. Tolerating well. Hospitalist Physical - Physical exam Narrative exam: Physical Exam: Constitutional: Alert, cooperative. No acute distress Head, Ears, Nose: Normocephalic, atraumatic. External ears, nose normal Eyes: Conjunctivae/corneas clear. No icterus. No ptosis. Neck: Supple, no meningeal signs Oral: dentition fair, no thrush Cardiovascular: S1, S2 normal. Respiratory: Good air entry, imrpovement in lung exam. 4 L nasal cannula in place GI: Soft, non-tender; bowel sounds normal. No peritoneal signs. Musculoskeletal: No pedal edema, no cyanosis. Skin: No rash or abscess Hem/Lymphatic: No palpable cervical or supraclavicular nodes. No lymphangitis Psych: Mood ok. Affect normal Neurological: Awake, alert, oriented. No gross abnormality - Constitutional Vitals: Temp Pulse Resp BP Pulse Ox 97.4 F L 82 14 115/83 96 10/17/20 12:00 10/17/20 12:00 10/17/20 12:00 10/17/20 12:00 10/17/20 12:00 General appearance: Present: mild distress, obese HEART Score - HEART Score Troponin: Troponin T < 0.010 ng/mL (0.00-0.029) 10/09/20 19:41 Results - Labs CBC & Chem 7: 10/16/20 04:37 10/16/20 04:37 Labs: Laboratory Last Values WBC 13.5 K/mm3 (4.5-11.0) H 10/16/20 04:37 RBC 4.70 M/mm3 (3.65-5.03) 10/16/20 04:37 Hgb 13.3 gm/dl (11.8-15.2) 10/16/20 04:37 Hct 41.1 % (35.5-45.6) 10/16/20 04:37 MCV 88 fl (84-94) 10/16/20 04:37 MCH 28 pg (28-32) 10/16/20 04:37 MCHC 32 % (32-34) 10/16/20 04:37 RDW 13.6 % (13.2-15.2) 10/16/20 04:37 Plt Count 360 K/mm3 (140-440) 10/16/20 04:37 Add Manual Diff Complete 10/16/20 04:37 Total Counted 100 10/16/20 04:37 Seg Neuts % (Manual) 82.0 % (40.0-70.0) H 10/16/20 04:37 Band Neutrophils % 3.0 % 10/15/20 05:39 Lymphocytes % (Manual) 8.0 % (13.4-35.0) L 10/16/20 04:37 Monocytes % (Manual) 8.0 % (0.0-7.3) H 10/16/20 04:37 Metamyelocytes % 2.0 % 10/16/20 04:37 Nucleated RBC % Not Reportable 10/16/20 04:37 Seg Neutrophils # Man 11.1 K/mm3 (1.8-7.7) H 10/16/20 04:37 Band Neutrophils # 0.0 K/mm3 10/16/20 04:37 Lymphocytes # (Manual) 1.1 K/mm3 (1.2-5.4) L 10/16/20 04:37 Abs React Lymphs (Man) 0.0 K/mm3 10/16/20 04:37 Monocytes # (Manual) 1.1 K/mm3 (0.0-0.8) H 10/16/20 04:37 Eosinophils # (Manual) 0.0 K/mm3 (0.0-0.4) 10/16/20 04:37 Basophils # (Manual) 0.0 K/mm3 (0.0-0.1) 10/16/20 04:37 Metamyelocytes # 0.3 K/mm3 10/16/20 04:37 Myelocytes # 0.0 K/mm3 10/16/20 04:37 Promyelocytes # 0.0 K/mm3 10/16/20 04:37 Blast Cells # 0.0 K/mm3 10/16/20 04:37 WBC Morphology Not Reportable 10/16/20 04:37 Hypersegmented Neuts Not Reportable 10/16/20 04:37 Hyposegmented Neuts Not Reportable 10/16/20 04:37 Hypogranular Neuts Not Reportable 10/16/20 04:37 Smudge Cells Not Reportable 10/16/20 04:37 Toxic Granulation Not Reportable 10/16/20 04:37 Toxic Vacuolation Not Reportable 10/16/20 04:37 Dohle Bodies Not Reportable 10/16/20 04:37 Pelger-Huet Anomaly Not Reportable 10/16/20 04:37 Kiya Rods Not Reportable 10/16/20 04:37 Platelet Estimate Consistent w auto 10/16/20 04:37 Clumped Platelets Not Reportable 10/16/20 04:37 Plt Clumps, EDTA Not Reportable 10/16/20 04:37 Large Platelets Not Reportable 10/16/20 04:37 Giant Platelets Not Reportable 10/16/20 04:37 Platelet Satelliting Not Reportable 10/16/20 04:37 Plt Morphology Comment Not Reportable 10/16/20 04:37 RBC Morphology Normal 10/16/20 04:37 Dimorphic RBCs Not Reportable 10/16/20 04:37 Polychromasia Not Reportable 10/16/20 04:37 Hypochromasia Not Reportable 10/16/20 04:37 Poikilocytosis Not Reportable 10/16/20 04:37 Anisocytosis Not Reportable 10/16/20 04:37 Microcytosis Not Reportable 10/16/20 04:37 Macrocytosis Not Reportable 10/16/20 04:37 Spherocytes Not Reportable 10/16/20 04:37 Pappenheimer Bodies Not Reportable 10/16/20 04:37 Sickle Cells Not Reportable 10/16/20 04:37 Target Cells Not Reportable 10/16/20 04:37 Tear Drop Cells Not Reportable 10/16/20 04:37 Ovalocytes Not Reportable 10/16/20 04:37 Helmet Cells Not Reportable 10/16/20 04:37 [place] Bodies Not Reportable 10/16/20 04:37 [place] Rings Not Reportable 10/16/20 04:37 [place] Cells Not Reportable 10/16/20 04:37 Bite Cells Not Reportable 10/16/20 04:37 Crenated Cell Not Reportable 10/16/20 04:37 Elliptocytes Not Reportable 10/16/20 04:37 Acanthocytes (Spur) Not Reportable 10/16/20 04:37 Rouleaux Not Reportable 10/16/20 04:37 Hemoglobin C Crystals Not Reportable 10/16/20 04:37 Schistocytes Not Reportable 10/16/20 04:37 Malaria parasites Not Reportable 10/16/20 04:37 Mode Bodies Not Reportable 10/16/20 04:37 Hem Pathologist Commnt No 10/16/20 04:37 D-Dimer 5191.50 ng/mlDDU (0-234) H 10/16/20 04:37 Sodium 135 mmol/L (137-145) L 10/16/20 04:37 Potassium 5.3 mmol/L (3.6-5.0) H 10/16/20 04:37 Chloride 100.9 mmol/L (98-107) 10/16/20 04:37 Carbon Dioxide 25 mmol/L (22-30) 10/16/20 04:37 Anion Gap 14 mmol/L 10/16/20 04:37 BUN 26 mg/dL (9-20) H 10/16/20 04:37 Creatinine 0.8 mg/dL (0.8-1.3) 10/16/20 04:37 Estimated GFR > 60 ml/min 10/16/20 04:37 BUN/Creatinine Ratio 33 % 10/16/20 04:37 Glucose 121 mg/dL (75-100) H 10/16/20 04:37 Calcium 9.3 mg/dL (8.4-10.2) 10/16/20 04:37 Magnesium 2.50 mg/dL (1.7-2.3) H 10/09/20 19:41 Ferritin 4238.0 ng/mL (30.0-300.0) H 10/16/20 04:37 Total Bilirubin 0.70 mg/dL (0.1-1.2) 10/14/20 10:08 Direct Bilirubin 0.3 mg/dL (0-0.2) H 10/14/20 10:08 Indirect Bilirubin 0.4 mg/dL 10/14/20 10:08 AST 135 units/L (5-40) H 10/14/20 10:08 ALT 287 units/L (7-56) H 10/14/20 10:08 Alkaline Phosphatase 80 units/L (35-129) 10/14/20 10:08 Lactate Dehydrogenase 437 units/L (91-180) H 10/16/20 04:37 Troponin T < 0.010 ng/mL (0.00-0.029) 10/09/20 19:41 C-Reactive Protein 0.40 mg/dL (0.00-1.30) 10/16/20 04:37 Total Protein 6.6 g/dL (6.3-8.2) 10/14/20 10:08 Albumin 3.3 g/dL (3.9-5) L 10/14/20 10:08 Albumin/Globulin Ratio 1.0 % 10/14/20 10:08 Procalcitonin 0.49 ng/mL (<0.15) 10/09/20 20:13 Coronavirus (PCR) Positive (Negative) A 10/09/20 Unknown Olivera/IV: Voiding Method Urinal Active Medications - Current Medications Current Medications: Generic Name Dose Route Start Last Admin Trade Name Freq PRN Reason Stop Dose Admin Acetaminophen 650 mg 10/09/20 21:07 Acetaminophen 325 Mg Tab PO Q6H PRN Pain MILD(1-3)/Fever >100.5/NAVA Albuterol 2.5 mg 10/09/20 21:07 Albuterol 2.5 Mg/3 Ml Nebu IH Q3HRT PRN Shortness Of Breath Dexamethasone 8 mg 10/11/20 10:00 10/17/20 10:51 Dexamethasone 4 Mg/Ml Vial IV 10/20/20 10:01 8 mg DAILY LENCHO Administration Enoxaparin Sodium 120 mg 10/10/20 22:00 10/17/20 10:52 Enoxaparin 120 Mg/0.8 Ml Inj SUB-Q 120 mg Q12HR LENCHO Administration Hydromorphone HCl 0.5 mg 10/09/20 21:07 Hydromorphone 1 Mg/1 Ml Inj IV Q12H PRN Pain , Severe (7-10) Oxycodone/Acetaminophen 1 tab 10/09/20 21:07 Oxycodone /Acetaminophen 5-325mg Tab PO Q12H PRN Pain, Moderate (4-6) Polyethylene Glycol 17 gm 10/17/20 10:26 Polyethylene Glycol 3350 17 Gm Powder PO BID PRN Constipation Senna 8.8 mg 10/17/20 10:26 Sennosides Oral Liqd 8.8 Mg/5 Ml Oral Liqd PO QHS PRN Constipation Sodium Chloride 10 ml 10/09/20 22:00 10/17/20 10:52 Sodium Chloride 0.9% 10 Ml Flush Syringe IV 10 ml BID LENCHO Administration Sodium Chloride 10 ml 10/09/20 21:07 Sodium Chloride 0.9% 10 Ml Flush Syringe IV PRN PRN LINE FLUSH Nutrition/Malnutrition Assess - Dietary Evaluation Nutrition/Malnutrition Findings: Nutrition Notes Start: 10/15/20 08:02 Freq: Status: Active Protocol: Document 10/15/20 08:02 ELSA (Rec: 10/15/20 08:04 [id number]) Nutrition Notes Need for Assessment generated from: LOS Initial or Follow up Brief Note Subjective/Other Information Screen for LOS. Pt reports eating most of his meals. He doesn't eat as much of breakfast due to food prefrences. Pt reports no wt loss. Nutrition Intervention Change Diet Order: Add food prefrences Revisit per MD consult or patient Sign Off request:
--- NOTE | 2020-10-17 15:42 | Progress Note ---
Assessment and Plan Acute hypoxemic respiratory failure 2019 novel coronavirus disease (COVID-19) Community Acquired Pneumonia - therapeutic anticoagulation per system Protocol based on d-dimer and clinical considerations (will complete VTE w/up and stop full anticoagulation if negative) - Remdesivir as per ID/Pulmonary developed protocols (received) - continue systemic steroids for severe COVID-19 infection - follow repeat COVID tests results - zinc and vitamin C supplementation - Monitor inflammatory markers per facility protocol - ferritin, Ddimer, CRP - Continue contact and airborne isolation - continue to wean supplemental oxygen to keep O2 sats > 92% - bronchodilators (COREY) with pulm hygiene per RT - continue systemic steroids with slow taper - continue inhaled corticosteroids - continue to avoid nephrotoxins, renally dose all medications - mobility protocols to prevent pressure ulcers - PT/OT as tolerated - Wound care per RN/WCT - continue accuchecks with glycemic control per SSI for target blood glucose < 180 mg/dL - tobacco abstinence strongly counseled at the bedside - home oxygen evaluation at discharge - GI & VTE prophylaxis - Flu & pneumovax per protocol - Pulmonary out patient follow up for PFTs and optimization of respiratory status - continue other care per attending / other consultants - prn analgesia per pain score ... re-evaluate in am & prn Subjective Date of service: 10/17/20 Principal diagnosis: Acute hypoxemic respiratory failure; COVID-19 infection; Pneumonia Interval history: Patient is seen today for: Acute hypoxemic respiratory failure; COVID-19 infection; Pneumonia (CAP) Seen and examined at bedside; 24hour events reviewed; nursing and respiratory care staff consulted; no adverse overnight events reported to me; resting in bed; remains on supplemental oxygen at 4L flow; denies acute chest pain; + cough no hemoptysis; afebrile Objective Vital Signs - 12hr 10/17/20 10/17/20 10/17/20 04:00 05:00 06:00 Temperature 97.6 F Pulse Rate 75 70 73 Pulse Rate [ 75 From Monitor] Respiratory 21 14 17 Rate Blood Pressure 124/91 112/80 119/85 O2 Sat by Pulse 98 99 97 Oximetry 10/17/20 10/17/20 10/17/20 07:00 08:00 08:01 Temperature 97.5 F L Pulse Rate 70 80 104 H Pulse Rate [ 80 From Monitor] Respiratory 15 22 22 Rate Blood Pressure 126/90 127/81 O2 Sat by Pulse 96 96 95 Oximetry 10/17/20 10/17/20 10/17/20 09:00 10:00 11:01 Temperature Pulse Rate 75 89 135 H Pulse Rate [ From Monitor] Respiratory 21 17 40 H Rate Blood Pressure 107/76 115/77 115/77 O2 Sat by Pulse 93 96 92 Oximetry 10/17/20 12:00 Temperature 97.4 F L Pulse Rate 85 Pulse Rate [ 82 From Monitor] Respiratory 21 Rate Blood Pressure 115/83 O2 Sat by Pulse 94 Oximetry Constitutional: no acute distress, alert, other (middle aged obese male with mildly increased respiratory effort at rest) Eyes: non-icteric ENT: oropharynx moist Neck: supple, no lymphadenopathy, no JVD Effort: mildly labored Ascultation: Bilateral: rhonchi Percussion: Bilateral: not dull Cardiovascular: regular rate and rhythm Gastrointestinal: normoactive bowel sounds, soft, non-tender, non-distended Integumentary: normal Extremities: no cyanosis, no edema, pulses normal, no ischemia or petechiae Neurologic: normal mental status, non-focal exam, pupils equal and round, motor strength normal and Psychiatric: mood appropriate, affect normal CBC and BMP: 10/18/20 13:39 10/18/20 13:39 ABG, PT/INR, D-dimer: PT/INR, D-dimer D-Dimer 5191.50 ng/mlDDU (0-234) H 10/16/20 04:37 Abnormal lab findings: Abnormal Labs 10/09/20 10/09/20 10/09/20 19:41 19:41 20:13 WBC RDW 12.9 L Seg Neuts % (Manual) 80.0 H Lymphocytes % (Manual) 10.0 L Monocytes % (Manual) Seg Neutrophils # Man Lymphocytes # (Manual) 0.9 L Monocytes # (Manual) D-Dimer > 69189 H Sodium 131 L Potassium Chloride 96.2 L Carbon Dioxide 19 L BUN 23 H Creatinine Glucose 125 H Calcium Magnesium 2.50 H Ferritin Total Bilirubin 2.90 H Direct Bilirubin AST 57 H ALT Lactate Dehydrogenase C-Reactive Protein Albumin 3.3 L Coronavirus (PCR) 10/09/20 10/09/20 10/09/20 20:13 20:13 Unknown WBC RDW Seg Neuts % (Manual) Lymphocytes % (Manual) Monocytes % (Manual) Seg Neutrophils # Man Lymphocytes # (Manual) Monocytes # (Manual) D-Dimer Sodium Potassium Chloride Carbon Dioxide BUN Creatinine Glucose 118 H Calcium Magnesium Ferritin 8223.0 H Total Bilirubin Direct Bilirubin AST ALT Lactate Dehydrogenase 1517 H C-Reactive Protein 20.80 H Albumin Coronavirus (PCR) Positive A 10/10/20 10/10/20 10/10/20 04:48 04:48 16:32 WBC RDW 12.7 L Seg Neuts % (Manual) Lymphocytes % (Manual) 6.0 L Monocytes % (Manual) Seg Neutrophils # Man Lymphocytes # (Manual) 0.4 L Monocytes # (Manual) D-Dimer Sodium 132 L 130 L Potassium Chloride 97.5 L Carbon Dioxide 21 L 16 L BUN 21 H Creatinine 0.6 L Glucose 210 H 199 H Calcium 8.2 L Magnesium Ferritin Total Bilirubin 2.00 H Direct Bilirubin AST 51 H ALT Lactate Dehydrogenase C-Reactive Protein Albumin 3.0 L 2.7 L Coronavirus (PCR) 10/11/20 10/11/20 10/12/20 04:14 04:14 05:21 WBC 12.6 H RDW 12.9 L Seg Neuts % (Manual) 91.0 H Lymphocytes % (Manual) 6.0 L Monocytes % (Manual) Seg Neutrophils # Man 11.5 H Lymphocytes # (Manual) 0.8 L Monocytes # (Manual) D-Dimer Sodium 135 L Potassium 5.2 H Chloride Carbon Dioxide 19 L BUN Creatinine 0.7 L 0.7 L Glucose 127 H 105 H Calcium 8.0 L Magnesium Ferritin Total Bilirubin Direct Bilirubin AST 47 H 76 H ALT 115 H Lactate Dehydrogenase C-Reactive Protein Albumin 3.2 L 2.9 L Coronavirus (PCR) 10/13/20 10/14/20 10/14/20 04:48 10:08 10:08 WBC RDW Seg Neuts % (Manual) Lymphocytes % (Manual) Monocytes % (Manual) Seg Neutrophils # Man Lymphocytes # (Manual) Monocytes # (Manual) D-Dimer 6195.23 H Sodium 136 L Potassium Chloride Carbon Dioxide BUN Creatinine 0.6 L Glucose 103 H Calcium Magnesium Ferritin > 2000.0 H Total Bilirubin Direct Bilirubin AST 151 H ALT 228 H Lactate Dehydrogenase C-Reactive Protein Albumin 3.2 L Coronavirus (PCR) 10/14/20 10/14/20 10/15/20 10:08 10:08 05:39 WBC 13.1 H RDW Seg Neuts % (Manual) Lymphocytes % (Manual) 3.0 L Monocytes % (Manual) Seg Neutrophils # Man 12.2 H Lymphocytes # (Manual) 0.4 L Monocytes # (Manual) D-Dimer Sodium Potassium Chloride Carbon Dioxide BUN Creatinine Glucose Calcium Magnesium Ferritin Total Bilirubin Direct Bilirubin 0.3 H AST 135 H ALT 287 H Lactate Dehydrogenase 525 H C-Reactive Protein Albumin 3.3 L Coronavirus (PCR) 10/15/20 10/16/20 10/16/20 05:39 04:37 04:37 WBC 13.5 H RDW Seg Neuts % (Manual) 82.0 H Lymphocytes % (Manual) 8.0 L Monocytes % (Manual) 8.0 H Seg Neutrophils # Man 11.1 H Lymphocytes # (Manual) 1.1 L Monocytes # (Manual) 1.1 H D-Dimer 5191.50 H Sodium Potassium 5.3 H Chloride Carbon Dioxide BUN 21 H Creatinine Glucose 113 H Calcium Magnesium Ferritin Total Bilirubin Direct Bilirubin AST ALT Lactate Dehydrogenase C-Reactive Protein Albumin Coronavirus (PCR) 10/16/20 10/16/20 04:37 04:37 WBC RDW Seg Neuts % (Manual) Lymphocytes % (Manual) Monocytes % (Manual) Seg Neutrophils # Man Lymphocytes # (Manual) Monocytes # (Manual) D-Dimer Sodium 135 L Potassium 5.3 H Chloride Carbon Dioxide BUN 26 H Creatinine Glucose 121 H Calcium Magnesium Ferritin 4238.0 H Total Bilirubin Direct Bilirubin AST ALT Lactate Dehydrogenase 437 H C-Reactive Protein Albumin Coronavirus (PCR) Allied health notes reviewed: nursing
--- NOTE | 2020-10-17 18:02 | Progress Note ---
Assessment and Plan Cultures: Blood culture no growth so far COVID PCR positive A/P: 60 yo M PMHx HTN, obesity admitted as COVID. #COVID pneumonia: with bilateral pneumonia. Highly elevated inflammatory markers. s/p Actemra #Acute hypoxemic respiratory failure: Likely secondary to COVID-19 infection. Currently on 3L NC #Obesity Recs: -Dexamethasone per pulmonary for 10 days -Remdesivir 200 mg IV q day x 1 followed by 100 mg IV q day x 4 days -Obtain q48-72h inflammatory markers - ferritin, Ddimer, CRP, LDH -Anticoagulation per hospital protocol -Proning as able Thank you for the consult, we will continue to follow. Marcelina Grace MD [facility] O: [phone] F: [phone] Subjective Date of service: 10/17/20 Principal diagnosis: Acute hypoxemic respiratory failure; COVID-19 infection; Pneumonia Interval history: Afebrile, white count 13.5. On 3 L nasal cannula, improving. Objective - Exam Narrative Exam: physical exam deferred to reduce risk of transmission of COVID-19. Please refer to primary team's note. - Constitutional Vitals: Vital Signs Temp Pulse Resp BP Pulse Ox 97.4 F L 91 H 17 125/84 97 10/17/20 12:00 10/17/20 16:00 10/17/20 16:00 10/17/20 16:00 10/17/20 16:00 Temperature -Last 24 Hours Temperature 97.4 F Temperature 97.5 F Temperature 97.6 F Temperature 97.5 F Temperature 97.6 F - Labs CBC & Chem 7: 10/16/20 04:37 10/16/20 04:37
--- NOTE | 2020-10-17 18:15 | Cat Scan Report ---
CT angio chest INDICATION / CLINICAL INFORMATION: Hypoxemic respiratory failure 100 ML OMNI 350 . TECHNIQUE: Axial CT images were obtained through the chest after injection of IV contrast. 3 plane MIP and/or 3D reconstructions were produced. All CT scans at this location are performed using CT dose reduction f or ALARA by means of automated exposure control. COMPARISON: X-ray 10/09/2020 FINDINGS: PULMONARY ARTERIES: Saddle pulmonary embolus with extension to the distal pulmonary arteries. Large c lot burden. HEART: RV to LV ratio is normal without evidence of right heart strain. MEDIASTINUM / ROSANGELA: Pneumomediastinum which extends slightly along the bronchovascular bundles. LUNGS: Groundglass opacities involving all 5 lobes of the lung demonstrating a peripheral subpleural predilection. No pleural effusion. No pneumothorax. ADDITIONAL FINDINGS: None. UPPER ABDOMEN: No acute findings. SKELETAL STRUCTURES: No significant osseous abnormality. IMPRESSION: 1. Saddle pulmonary embolus with large clot burden in this patient with classic imaging features of C ovid pneumonia. No evidence of right heart strain. 2. Pneumomediastinum which is thought to be most likely related to tracheobronchial injury. Correlate clinically. I informed nurse Leonora, at 5:10. Signer Name: Lio Reno MD Signed: 10/17/2020 6:11 PM Workstation Name: [id number]
--- NOTE | 2020-10-17 18:20 | Vascular Lab Report ---
DUPLEX DOPPLER LOWER EXTREMITY VEINS, BILATERAL INDICATION / CLINICAL INFORMATION: swelling. TECHNIQUE: Duplex doppler imaging was performed through the veins of both lower extremities using venous ernst nicole and other maneuvers. COMPARISON: None available. FINDINGS: RIGHT COMMON FEMORAL VEIN: Negative. RIGHT FEMORAL VEIN: Negative. RIGHT POPLITEAL VEIN: Negative. RIGHT CALF VEINS: Negative. LEFT COMMON FEMORAL VEIN: Negative. LEFT FEMORAL VEIN: Negative. LEFT POPLITEAL VEIN: Negative. LEFT CALF VEINS: Negative. ADDITIONAL FINDINGS: None. IMPRESSION: 1. No sonographic evidence for DVT in either lower extremity. Signer Name: Samm Parks MD Signed: 10/17/2020 6:15 PM Workstation Name: [id number]
[2020-10-17] MEDS: ASCORBIC ACID 500 MG TAB PO SCH (21:03)
[2020-10-17] MEDS: ZINC SULFATE 220 MG CAP PO SCH (21:04)
[2020-10-18 05:28] LABS: Hematocrit 44.5 % (35.5-45.6); Hemoglobin 13.9 gm/dl (11.8-15.2); Mean Corpuscular HGB Conc 31 % (32-34); Mean Corpuscular Volume 88 fl (84-94); Platelet Count 355 K/mm3 (140-440); Red Blood Count 5.09 M/mm3 (3.65-5.03); Red Cell Distribution Width 14.2 % (13.2-15.2)
[2020-10-18 05:37] LABS: BUN/Creatinine Ratio 26; Blood Urea Nitrogen 21 mg/dL (9-20); Calcium 9.4 mg/dL (8.4-10.2); Hemolysis Index 8
--- NOTE | 2020-10-18 07:51 | Progress Note ---
Assessment and Plan Assessment and plan: 1. Acute hypoxemic respiratory failure -multifactorial COVID PNA and PE Continue with nasal cannula at 4 L titrate down as patient tolerates -Continue with dexamethasone x10 days, remdesivir x5 days, status post Actemra, Continue full dose anticoagulation, will consider CTA chest Inflammatory markers every 48 hours Pulmonary consult placed, will follow recs 2. Pulmonary Embolism - saddle PE demonstrated on CTA - currently on therapeutic dosing lovenox 3. Pneumomediastium - noted on CTA Chest -Supportive care 4. COVID pneumonia. - management as above ID following, will follow recs -Status post Actemra, remdesivir, Rocephin, Zithromax -Continue Decadron. 5. Sepsis. Patient meets criteria given the tachycardia, tachypnea and diagnosis of bilateral pneumonia. - managmeent as above 6. COVID-19 infection. Covid PCR + 10/09/2020 - management as above Hospital Course to date. 10/10/2020. Patient currently with high flow nasal cannula with oxygen flow rate of 40 and FiO2 90%. ID consulted. Await COVID-19 testing. Start dexamethasone 6 mg IV daily. Patient may need higher dose given obesity. Await ID recommendations regarding remdesivir as well as Covid testing. Patient with significantly elevated inflammatory markers D-dimer greater than 10,000, jaylin ritin 8000, LDH 1500 and CRP 20. Check CTA of chest when patient medically stable. Start treatment dose of Lovenox given the extremely high D-dimer. Hold on IV antibiotics given the normal procalcitonin. 10/11/2020. Patient currently with HFNC of 30 L with FiO2 of 70%. Covid PCR + 10/09/2020. Continue dexamethasone and remdesivir for 10 days and 5 days respectively. Actemra was given because of high CRP and HFNC. Continue to monitor anti-inflammatory markers of ferritin, D-dimer, CRP and LDH. Full dose anticoagulation given extremely high D-dimer. Continue prone positioning as available. CTA of chest when patient more stable. 10/12/2020. Patient currently with HFNC 30 L / 100%. Continue dexamethasone and remdesivir per ID recommendations continue to trend anti-inflammatory markers. Continue Full dose anticoagulation given extremely high D-dimer. Continue prone positioning as available. CTA of chest when patient more stable. 10/13/2020. Patient currently with HFNC 30 L / 100%. Continue dexamethasone and remdesivir per ID recommendations continue to trend anti-inflammatory markers. S/p Actemra x1 given high CRP and HFNC. Continue Full dose anticoagulation given extremely high D-dimer. Continue prone positioning as available. CTA of chest when patient more stable. 10/14/2020. Patient still with HFNC 30 L / 100%. Continue dexamethasone and remdesivir per ID recommendations continue to trend anti-inflammatory markers. S/p Actemra x1 given high CRP and HFNC. Continue Full dose anticoagulation with Lovenox given extremely high D-dimer. Continue prone positioning as available. CTA of chest when patient more stable. 10/15/2020: Patient currently on HFNC 20L/ 60%. Continue covid standard therapies. trending anti inflammatory markers q48hrs. Full dose anticoagulation disconitnued. Switched to DVT prophylaxis dosing. ordered physical therapy. patient appears strong enough to mobilize within room. Infectious disease following. Pulmonary consulted. 10/16/2020: Discussed with IMCU Rn this AM. Will attempt to wean off of HFNC as patient/saturations tolerate. Okay with sat > 90 as long as remainder of vitals stable. Advised to do trial with nasal cannula if patient tolerates can d/c HFNC. 10/17/2020: Patient successfully transitioned to 4 L nasal cannula. He can be downgraded to a medical floor. Will work with case sealer for set up of likely home oxygen. Will work on discharge plan with CM. Anticipate DC in the next 1 to 2 days. 10/18/2020: On 4 L NC. will transition to NOAC anticoagulation. CM consult placed for home oxygen. Patient can be downgraded to floor History Interval history: Doing well on encounter today. Discussed new finding of pulmonary embolism on CT chest and pneumomedistinum. Will transition to oral anticoagulation Hospitalist Physical - Physical exam Narrative exam: Physical Exam: Constitutional: Alert, cooperative. No acute distress Head, Ears, Nose: Normocephalic, atraumatic. External ears, nose normal Eyes: Conjunctivae/corneas clear. No icterus. No ptosis. Neck: Supple, no meningeal signs Oral: dentition fair, no thrush Cardiovascular: S1, S2 normal. Respiratory: Good air entry, imrpovement in lung exam. 4 L nasal cannula in place GI: Soft, non-tender; bowel sounds normal. No peritoneal signs. Musculoskeletal: No pedal edema, no cyanosis. Skin: No rash or abscess Hem/Lymphatic: No palpable cervical or supraclavicular nodes. No lymphangitis Psych: Mood ok. Affect normal Neurological: Awake, alert, oriented. No gross abnormality - Constitutional Vitals: Temp Pulse Resp BP Pulse Ox 97.7 F 73 14 111/80 98 10/18/20 07:30 10/18/20 06:00 10/18/20 06:00 10/18/20 06:00 10/18/20 05:00 General appearance: Present: mild distress, obese HEART Score - HEART Score Troponin: Troponin T < 0.010 ng/mL (0.00-0.029) 10/09/20 19:41 Results - Labs CBC & Chem 7: 10/18/20 04:46 10/18/20 04:46 Labs: Laboratory Last Values WBC 9.7 K/mm3 (4.5-11.0) 10/18/20 04:46 RBC 5.09 M/mm3 (3.65-5.03) H 10/18/20 04:46 Hgb 13.9 gm/dl (11.8-15.2) 10/18/20 04:46 Hct 44.5 % (35.5-45.6) 10/18/20 04:46 MCV 88 fl (84-94) 10/18/20 04:46 MCH 27 pg (28-32) L 10/18/20 04:46 MCHC 31 % (32-34) L 10/18/20 04:46 RDW 14.2 % (13.2-15.2) 10/18/20 04:46 Plt Count 355 K/mm3 (140-440) 10/18/20 04:46 Add Manual Diff Complete 10/16/20 04:37 Total Counted 100 10/16/20 04:37 Seg Neuts % (Manual) 82.0 % (40.0-70.0) H 10/16/20 04:37 Band Neutrophils % 3.0 % 10/15/20 05:39 Lymphocytes % (Manual) 8.0 % (13.4-35.0) L 10/16/20 04:37 Monocytes % (Manual) 8.0 % (0.0-7.3) H 10/16/20 04:37 Metamyelocytes % 2.0 % 10/16/20 04:37 Nucleated RBC % Not Reportable 10/16/20 04:37 Seg Neutrophils # Man 11.1 K/mm3 (1.8-7.7) H 10/16/20 04:37 Band Neutrophils # 0.0 K/mm3 10/16/20 04:37 Lymphocytes # (Manual) 1.1 K/mm3 (1.2-5.4) L 10/16/20 04:37 Abs React Lymphs (Man) 0.0 K/mm3 10/16/20 04:37 Monocytes # (Manual) 1.1 K/mm3 (0.0-0.8) H 10/16/20 04:37 Eosinophils # (Manual) 0.0 K/mm3 (0.0-0.4) 10/16/20 04:37 Basophils # (Manual) 0.0 K/mm3 (0.0-0.1) 10/16/20 04:37 Metamyelocytes # 0.3 K/mm3 10/16/20 04:37 Myelocytes # 0.0 K/mm3 10/16/20 04:37 Promyelocytes # 0.0 K/mm3 10/16/20 04:37 Blast Cells # 0.0 K/mm3 10/16/20 04:37 WBC Morphology Not Reportable 10/16/20 04:37 Hypersegmented Neuts Not Reportable 10/16/20 04:37 Hyposegmented Neuts Not Reportable 10/16/20 04:37 Hypogranular Neuts Not Reportable 10/16/20 04:37 Smudge Cells Not Reportable 10/16/20 04:37 Toxic Granulation Not Reportable 10/16/20 04:37 Toxic Vacuolation Not Reportable 10/16/20 04:37 Dohle Bodies Not Reportable 10/16/20 04:37 Pelger-Huet Anomaly Not Reportable 10/16/20 04:37 Kiya Rods Not Reportable 10/16/20 04:37 Platelet Estimate Consistent w auto 10/16/20 04:37 Clumped Platelets Not Reportable 10/16/20 04:37 Plt Clumps, EDTA Not Reportable 10/16/20 04:37 Large Platelets Not Reportable 10/16/20 04:37 Giant Platelets Not Reportable 10/16/20 04:37 Platelet Satelliting Not Reportable 10/16/20 04:37 Plt Morphology Comment Not Reportable 10/16/20 04:37 RBC Morphology Normal 10/16/20 04:37 Dimorphic RBCs Not Reportable 10/16/20 04:37 Polychromasia Not Reportable 10/16/20 04:37 Hypochromasia Not Reportable 10/16/20 04:37 Poikilocytosis Not Reportable 10/16/20 04:37 Anisocytosis Not Reportable 10/16/20 04:37 Microcytosis Not Reportable 10/16/20 04:37 Macrocytosis Not Reportable 10/16/20 04:37 Spherocytes Not Reportable 10/16/20 04:37 Pappenheimer Bodies Not Reportable 10/16/20 04:37 Sickle Cells Not Reportable 10/16/20 04:37 Target Cells Not Reportable 10/16/20 04:37 Tear Drop Cells Not Reportable 10/16/20 04:37 Ovalocytes Not Reportable 10/16/20 04:37 Helmet Cells Not Reportable 10/16/20 04:37 Dia-Converse Bodies Not Reportable 10/16/20 04:37 [place] Rings Not Reportable 10/16/20 04:37 [place] Cells Not Reportable 10/16/20 04:37 Bite Cells Not Reportable 10/16/20 04:37 Crenated Cell Not Reportable 10/16/20 04:37 Elliptocytes Not Reportable 10/16/20 04:37 Acanthocytes (Spur) Not Reportable 10/16/20 04:37 Rouleaux Not Reportable 10/16/20 04:37 Hemoglobin C Crystals Not Reportable 10/16/20 04:37 Schistocytes Not Reportable 10/16/20 04:37 Malaria parasites Not Reportable 10/16/20 04:37 Mode Bodies Not Reportable 10/16/20 04:37 Hem Pathologist Commnt No 10/16/20 04:37 D-Dimer 5191.50 ng/mlDDU (0-234) H 10/16/20 04:37 Sodium 136 mmol/L (137-145) L 10/18/20 04:46 Potassium 5.6 mmol/L (3.6-5.0) H 10/18/20 04:46 Chloride 99.7 mmol/L (98-107) 10/18/20 04:46 Carbon Dioxide 26 mmol/L (22-30) 10/18/20 04:46 Anion Gap 16 mmol/L 10/18/20 04:46 BUN 21 mg/dL (9-20) H 10/18/20 04:46 Creatinine 0.8 mg/dL (0.8-1.3) 10/18/20 04:46 Estimated GFR > 60 ml/min 10/18/20 04:46 BUN/Creatinine Ratio 26 % 10/18/20 04:46 Glucose 110 mg/dL (75-100) H 10/18/20 04:46 Calcium 9.4 mg/dL (8.4-10.2) 10/18/20 04:46 Magnesium 2.50 mg/dL (1.7-2.3) H 10/09/20 19:41 Ferritin 4238.0 ng/mL (30.0-300.0) H 10/16/20 04:37 Total Bilirubin 0.70 mg/dL (0.1-1.2) 10/14/20 10:08 Direct Bilirubin 0.3 mg/dL (0-0.2) H 10/14/20 10:08 Indirect Bilirubin 0.4 mg/dL 10/14/20 10:08 AST 135 units/L (5-40) H 10/14/20 10:08 ALT 287 units/L (7-56) H 10/14/20 10:08 Alkaline Phosphatase 80 units/L (35-129) 10/14/20 10:08 Lactate Dehydrogenase 437 units/L (91-180) H 10/16/20 04:37 Troponin T < 0.010 ng/mL (0.00-0.029) 10/09/20 19:41 C-Reactive Protein 0.40 mg/dL (0.00-1.30) 10/16/20 04:37 Total Protein 6.6 g/dL (6.3-8.2) 10/14/20 10:08 Albumin 3.3 g/dL (3.9-5) L 10/14/20 10:08 Albumin/Globulin Ratio 1.0 % 10/14/20 10:08 Procalcitonin 0.49 ng/mL (<0.15) 10/09/20 20:13 Coronavirus (PCR) Positive (Negative) A 10/09/20 Unknown Olivera/IV: Voiding Method Urinal Active Medications - Current Medications Current Medications: Generic Name Dose Route Start Last Admin Trade Name Freq PRN Reason Stop Dose Admin Acetaminophen 650 mg 10/09/20 21:07 Acetaminophen 325 Mg Tab PO Q6H PRN Pain MILD(1-3)/Fever >100.5/NAVA Albuterol 2.5 mg 10/09/20 21:07 Albuterol 2.5 Mg/3 Ml Nebu IH Q3HRT PRN Shortness Of Breath Ascorbic Acid 500 mg 10/17/20 22:00 10/17/20 21:03 Ascorbic Acid 500 Mg Tab PO 500 mg BID LENCHO Administration Dexamethasone 8 mg 10/11/20 10:00 10/17/20 10:51 Dexamethasone 4 Mg/Ml Vial IV 10/20/20 10:01 8 mg DAILY LENCHO Administration Enoxaparin Sodium 120 mg 10/10/20 22:00 10/17/20 21:02 Enoxaparin 120 Mg/0.8 Ml Inj SUB-Q 120 mg Q12HR LENCHO Administration Hydromorphone HCl 0.5 mg 10/09/20 21:07 Hydromorphone 1 Mg/1 Ml Inj IV Q12H PRN Pain , Severe (7-10) Oxycodone/Acetaminophen 1 tab 10/09/20 21:07 Oxycodone /Acetaminophen 5-325mg Tab PO Q12H PRN Pain, Moderate (4-6) Polyethylene Glycol 17 gm 10/17/20 10:26 Polyethylene Glycol 3350 17 Gm Powder PO BID PRN Constipation Senna 8.8 mg 10/17/20 10:26 Sennosides Oral Liqd 8.8 Mg/5 Ml Oral Liqd PO QHS PRN Constipation Sodium Chloride 10 ml 10/09/20 22:00 10/17/20 21:03 Sodium Chloride 0.9% 10 Ml Flush Syringe IV 10 ml BID LENCHO Administration Sodium Chloride 10 ml 10/09/20 21:07 Sodium Chloride 0.9% 10 Ml Flush Syringe IV PRN PRN LINE FLUSH Zinc Sulfate 220 mg 10/17/20 22:00 10/17/20 21:04 Zinc Sulfate 220 Mg Cap PO 220 mg BID LENCHO Administration Nutrition/Malnutrition Assess - Dietary Evaluation Nutrition/Malnutrition Findings: Nutrition Notes Start: 10/15/20 08:02 Freq: Status: Active Protocol: Document 10/15/20 08:02 ELSA (Rec: 10/15/20 08:04 ELSA [id number]) Nutrition Notes Need for Assessment generated from: LOS Initial or Follow up Brief Note Subjective/Other Information Screen for LOS. Pt reports eating most of his meals. He doesn't eat as much of breakfast due to food prefrences. Pt reports no wt loss. Nutrition Intervention Change Diet Order: Add food prefrences Revisit per MD consult or patient Sign Off request:
[2020-10-18] MEDS: dexAMETHasone 4 MG/ML VIAL IV SCH (10:42)
[2020-10-18] MEDS: ENOXAPARIN 120 MG/0.8 ML INJ SUB-Q SCH (10:43)
[2020-10-18] MEDS: ASCORBIC ACID 500 MG TAB PO SCH ×2 (10:43→21:57)
[2020-10-18] MEDS: ZINC SULFATE 220 MG CAP PO SCH ×2 (10:44→21:57)
[2020-10-18 12:10] LABS: Band Neutrophils # (Manual) 0.1 K/mm3; Myelocytes # (Manual) 0.2 K/mm3; Total Cells Counted 100
[2020-10-18 12:11] LABS: Platelet Estimate Consistent w Auto; RBC Morphology Normal; Toxic Granulation 1+
[2020-10-18] MEDS: POLYETHYLENE GLYCOL 3350 17 GM POWDER PO PRN (13:07)
[2020-10-18 14:04] LABS: Hematocrit 43.3 % (35.5-45.6); Mean Corpuscular HGB Conc 32 % (32-34); Mean Corpuscular Volume 88 fl (84-94); Platelet Count 332 K/mm3 (140-440); Red Blood Count 4.93 M/mm3 (3.65-5.03); Red Cell Distribution Width 14.4 % (13.2-15.2)
[2020-10-18 14:16] LABS: INR 1.1 (0.87-1.13)
[2020-10-18 14:17] LABS: Partial Thromboplastin Time 33.8 Sec. (24.2-36.6)
--- NOTE | 2020-10-18 15:55 | Progress Note ---
Assessment and Plan Acute hypoxemic respiratory failure 2019 novel coronavirus disease (COVID-19) Community Acquired Pneumonia - continue therapeutic anticoagulation re: VTE - continue care as below otherwise; - Remdesivir as per ID/Pulmonary developed protocols (received) - continue systemic steroids for severe COVID-19 infection - follow repeat COVID tests results - zinc and vitamin C supplementation - Monitor inflammatory markers per facility protocol - ferritin, Ddimer, CRP - Continue contact and airborne isolation - continue to wean supplemental oxygen to keep O2 sats > 92% - bronchodilators (COREY) with pulm hygiene per RT - continue systemic steroids with slow taper - continue inhaled corticosteroids - continue to avoid nephrotoxins, renally dose all medications - mobility protocols to prevent pressure ulcers - PT/OT as tolerated - Wound care per RN/WCT - continue accuchecks with glycemic control per SSI for target blood glucose < 180 mg/dL - tobacco abstinence strongly counseled at the bedside - home oxygen evaluation at discharge - GI & VTE prophylaxis - Flu & pneumovax per protocol - Pulmonary out patient follow up for PFTs and optimization of respiratory status - continue other care per attending / other consultants - prn analgesia per pain score ... re-evaluate in am & prn ... transfer to medical floor Subjective Date of service: 10/18/20 Principal diagnosis: Acute hypoxemic respiratory failure; COVID-19 infection; Pneumonia Interval history: Patient is seen today for: Acute hypoxemic respiratory failure; COVID-19 infection; Pneumonia (CAP) Seen and examined at bedside; 24hour events reviewed; nursing and respiratory care staff consulted; no adverse overnight events reported to me; resting in bed; remains on supplemental oxygen at 3L flow; CTA positive for P.E. Objective Vital Signs - 12hr 10/18/20 10/18/20 10/18/20 04:00 05:00 06:00 Temperature Pulse Rate 72 80 73 Pulse Rate [ 73 From Monitor] Respiratory 11 L 20 14 Rate Blood Pressure 117/87 126/85 111/80 O2 Sat by Pulse 99 98 Oximetry 10/18/20 10/18/20 10/18/20 07:00 07:30 08:00 Temperature 97.7 F Pulse Rate 72 75 Pulse Rate [ 96 H From Monitor] Respiratory 12 19 Rate Blood Pressure 122/91 125/92 O2 Sat by Pulse 99 98 Oximetry 10/18/20 10/18/20 10/18/20 09:00 09:51 10:00 Temperature Pulse Rate 79 87 Pulse Rate [ From Monitor] Respiratory 21 24 Rate Blood Pressure 124/78 116/73 O2 Sat by Pulse 93 94 97 Oximetry 10/18/20 10/18/20 10/18/20 11:00 12:00 12:28 Temperature 98.5 F Pulse Rate 94 H 105 H Pulse Rate [ 104 H From Monitor] Respiratory 23 24 Rate Blood Pressure 114/77 124/76 O2 Sat by Pulse 96 94 Oximetry 10/18/20 13:00 Temperature Pulse Rate 110 H Pulse Rate [ From Monitor] Respiratory 41 H Rate Blood Pressure 124/76 O2 Sat by Pulse 93 Oximetry Constitutional: no acute distress, alert, other (middle aged obese male with mildly increased respiratory effort at rest) Eyes: non-icteric ENT: oropharynx moist Neck: supple, no lymphadenopathy, no JVD Effort: mildly labored Ascultation: Bilateral: rhonchi Percussion: Bilateral: not dull Cardiovascular: regular rate and rhythm Gastrointestinal: normoactive bowel sounds, soft, non-tender, non-distended Integumentary: normal Extremities: no cyanosis, no edema, pulses normal, no ischemia or petechiae Neurologic: normal mental status, non-focal exam, pupils equal and round, motor strength normal and Psychiatric: mood appropriate, affect normal CBC and BMP: 10/18/20 13:39 10/18/20 13:39 ABG, PT/INR, D-dimer: PT/INR, D-dimer PT 14.8 Sec. (12.2-14.9) 10/18/20 13:39 INR 1.10 (0.87-1.13) 10/18/20 13:39 D-Dimer 5191.50 ng/mlDDU (0-234) H 10/16/20 04:37 Abnormal lab findings: Abnormal Labs 10/09/20 10/09/20 10/09/20 19:41 19:41 20:13 WBC RBC MCH MCHC RDW 12.9 L Seg Neuts % (Manual) 80.0 H Lymphocytes % (Manual) 10.0 L Monocytes % (Manual) Nucleated RBC % Seg Neutrophils # Man Lymphocytes # (Manual) 0.9 L Monocytes # (Manual) D-Dimer > 12153 H Sodium 131 L Potassium Chloride 96.2 L Carbon Dioxide 19 L BUN 23 H Creatinine Glucose 125 H Calcium Magnesium 2.50 H Ferritin Total Bilirubin 2.90 H Direct Bilirubin AST 57 H ALT Lactate Dehydrogenase C-Reactive Protein Albumin 3.3 L Coronavirus (PCR) 10/09/20 10/09/20 10/09/20 20:13 20:13 Unknown WBC RBC MCH MCHC RDW Seg Neuts % (Manual) Lymphocytes % (Manual) Monocytes % (Manual) Nucleated RBC % Seg Neutrophils # Man Lymphocytes # (Manual) Monocytes # (Manual) D-Dimer Sodium Potassium Chloride Carbon Dioxide BUN Creatinine Glucose 118 H Calcium Magnesium Ferritin 8223.0 H Total Bilirubin Direct Bilirubin AST ALT Lactate Dehydrogenase 1517 H C-Reactive Protein 20.80 H Albumin Coronavirus (PCR) Positive A 10/10/20 10/10/20 10/10/20 04:48 04:48 16:32 WBC RBC MCH MCHC RDW 12.7 L Seg Neuts % (Manual) Lymphocytes % (Manual) 6.0 L Monocytes % (Manual) Nucleated RBC % Seg Neutrophils # Man Lymphocytes # (Manual) 0.4 L Monocytes # (Manual) D-Dimer Sodium 132 L 130 L Potassium Chloride 97.5 L Carbon Dioxide 21 L 16 L BUN 21 H Creatinine 0.6 L Glucose 210 H 199 H Calcium 8.2 L Magnesium Ferritin Total Bilirubin 2.00 H Direct Bilirubin AST 51 H ALT Lactate Dehydrogenase C-Reactive Protein Albumin 3.0 L 2.7 L Coronavirus (PCR) 10/11/20 10/11/20 10/12/20 04:14 04:14 05:21 WBC 12.6 H RBC MCH MCHC RDW 12.9 L Seg Neuts % (Manual) 91.0 H Lymphocytes % (Manual) 6.0 L Monocytes % (Manual) Nucleated RBC % Seg Neutrophils # Man 11.5 H Lymphocytes # (Manual) 0.8 L Monocytes # (Manual) D-Dimer Sodium 135 L Potassium 5.2 H Chloride Carbon Dioxide 19 L BUN Creatinine 0.7 L 0.7 L Glucose 127 H 105 H Calcium 8.0 L Magnesium Ferritin Total Bilirubin Direct Bilirubin AST 47 H 76 H ALT 115 H Lactate Dehydrogenase C-Reactive Protein Albumin 3.2 L 2.9 L Coronavirus (PCR) 10/13/20 10/14/20 10/14/20 04:48 10:08 10:08 WBC RBC MCH MCHC RDW Seg Neuts % (Manual) Lymphocytes % (Manual) Monocytes % (Manual) Nucleated RBC % Seg Neutrophils # Man Lymphocytes # (Manual) Monocytes # (Manual) D-Dimer 6195.23 H Sodium 136 L Potassium Chloride Carbon Dioxide BUN Creatinine 0.6 L Glucose 103 H Calcium Magnesium Ferritin > 2000.0 H Total Bilirubin Direct Bilirubin AST 151 H ALT 228 H Lactate Dehydrogenase C-Reactive Protein Albumin 3.2 L Coronavirus (PCR) 10/14/20 10/14/20 10/15/20 10:08 10:08 05:39 WBC 13.1 H RBC MCH MCHC RDW Seg Neuts % (Manual) Lymphocytes % (Manual) 3.0 L Monocytes % (Manual) Nucleated RBC % Seg Neutrophils # Man 12.2 H Lymphocytes # (Manual) 0.4 L Monocytes # (Manual) D-Dimer Sodium Potassium Chloride Carbon Dioxide BUN Creatinine Glucose Calcium Magnesium Ferritin Total Bilirubin Direct Bilirubin 0.3 H AST 135 H ALT 287 H Lactate Dehydrogenase 525 H C-Reactive Protein Albumin 3.3 L Coronavirus (PCR) 10/15/20 10/16/20 10/16/20 05:39 04:37 04:37 WBC 13.5 H RBC MCH MCHC RDW Seg Neuts % (Manual) 82.0 H Lymphocytes % (Manual) 8.0 L Monocytes % (Manual) 8.0 H Nucleated RBC % Seg Neutrophils # Man 11.1 H Lymphocytes # (Manual) 1.1 L Monocytes # (Manual) 1.1 H D-Dimer 5191.50 H Sodium Potassium 5.3 H Chloride Carbon Dioxide BUN 21 H Creatinine Glucose 113 H Calcium Magnesium Ferritin Total Bilirubin Direct Bilirubin AST ALT Lactate Dehydrogenase C-Reactive Protein Albumin Coronavirus (PCR) 10/16/20 10/16/20 10/18/20 04:37 04:37 04:46 WBC RBC 5.09 H MCH 27 L MCHC 31 L RDW Seg Neuts % (Manual) 77.0 H Lymphocytes % (Manual) 6.0 L Monocytes % (Manual) 9.0 H Nucleated RBC % 1.0 H Seg Neutrophils # Man Lymphocytes # (Manual) 0.6 L Monocytes # (Manual) 0.9 H D-Dimer Sodium 135 L Potassium 5.3 H Chloride Carbon Dioxide BUN 26 H Creatinine Glucose 121 H Calcium Magnesium Ferritin 4238.0 H Total Bilirubin Direct Bilirubin AST ALT Lactate Dehydrogenase 437 H C-Reactive Protein Albumin Coronavirus (PCR) 10/18/20 04:46 WBC RBC MCH MCHC RDW Seg Neuts % (Manual) Lymphocytes % (Manual) Monocytes % (Manual) Nucleated RBC % Seg Neutrophils # Man Lymphocytes # (Manual) Monocytes # (Manual) D-Dimer Sodium 136 L Potassium 5.6 H Chloride Carbon Dioxide BUN 21 H Creatinine Glucose 110 H Calcium Magnesium Ferritin Total Bilirubin Direct Bilirubin AST ALT Lactate Dehydrogenase C-Reactive Protein Albumin Coronavirus (PCR) CT scan - chest: image reviewed (Acute P.E. ) Allied health notes reviewed: nursing
[2020-10-18] MEDS: RIVAROXABAN 15 MG TAB PO SCH (17:08)
--- NOTE | 2020-10-18 18:14 | Progress Note ---
Assessment and Plan Cultures: Blood culture no growth so far COVID PCR positive A/P: 60 yo M PMHx HTN, obesity admitted as COVID. #COVID pneumonia: with bilateral pneumonia. Highly elevated inflammatory markers. s/p Actemra #Acute hypoxemic respiratory failure: Likely secondary to COVID-19 infection. Currently on 4L NC #Saddle PE: anticoagulation per primary #Obesity Recs: -Dexamethasone per pulmonary for 10 days -Completed Remdesivir -Obtain q48-72h inflammatory markers - ferritin, Ddimer, CRP, LDH -Anticoagulation per hospital protocol -Proning as able Thank you for the consult, we will sign off. please call with questions. Marcelina Grace MD [facility] O: [phone] F: [phone] Subjective Date of service: 10/18/20 Principal diagnosis: Acute hypoxemic respiratory failure; COVID-19 infection; Pneumonia Interval history: Afebrile, normal white count. On 4 L nasal cannula. Imaging personally reviewed: Chest CTA: Saddle pulmonary embolus no evidence of right heart strain Objective - Exam Narrative Exam: physical exam deferred to reduce risk of transmission of COVID-19. Please refer to primary team's note. - Constitutional Vitals: Vital Signs Temp Pulse Resp BP Pulse Ox 97.4 F L 95 H 29 H 137/80 98 10/18/20 16:41 10/18/20 18:00 10/18/20 18:00 10/18/20 18:00 10/18/20 18:00 Temperature -Last 24 Hours Temperature 97.4 F Temperature 97.4 F Temperature 98.5 F Temperature 97.7 F Temperature 98.2 F - Labs CBC & Chem 7: 10/18/20 13:39 10/18/20 13:39 Labs: Abnormal lab results 10/18/20 10/18/20 Range/Units 04:46 04:46 RBC 5.09 H (3.65-5.03) M/mm3 MCH 27 L (28-32) pg MCHC 31 L (32-34) % Seg Neuts % (Manual) 77.0 H (40.0-70.0) % Lymphocytes % (Manual) 6.0 L (13.4-35.0) % Monocytes % (Manual) 9.0 H (0.0-7.3) % Nucleated RBC % 1.0 H (0.0-0.9) % Lymphocytes # (Manual) 0.6 L (1.2-5.4) K/mm3 Monocytes # (Manual) 0.9 H (0.0-0.8) K/mm3 Sodium 136 L (137-145) mmol/L Potassium 5.6 H (3.6-5.0) mmol/L BUN 21 H (9-20) mg/dL Glucose 110 H (75-100) mg/dL
[2020-10-19] MEDS: RIVAROXABAN 10 MG TAB PO SCH ×2 (09:43→16:22)
[2020-10-19] MEDS: ZINC SULFATE 220 MG CAP PO SCH ×2 (09:43→22:22)
[2020-10-19] MEDS: ASCORBIC ACID 500 MG TAB PO SCH ×2 (09:43→22:22)
[2020-10-19] MEDS: dexAMETHasone 4 MG/ML VIAL IV SCH (09:44)
[2020-10-19] MEDS: RIVAROXABAN 15 MG TAB PO SCH (09:46)
[2020-10-19 09:54] LABS: BUN/Creatinine Ratio 25; Blood Urea Nitrogen 20 mg/dL (9-20); Calcium 9.6 mg/dL (8.4-10.2); Hemolysis Index 29
--- NOTE | 2020-10-19 16:10 | Progress Note ---
Assessment and Plan Assessment and plan: 1. Acute hypoxemic respiratory failure -multifactorial COVID PNA and PE Continue with nasal cannula at 4 L titrate down as patient tolerates -Continue with dexamethasone x10 days, remdesivir x5 days, status post Actemra, Continue full dose anticoagulation, will consider CTA chest Inflammatory markers every 48 hours Pulmonary consult placed, will follow recs 2. Pulmonary Embolism - saddle PE demonstrated on CTA - currently on therapeutic dosing lovenox 3. Pneumomediastium - noted on CTA Chest -Supportive care 4. COVID pneumonia. - management as above ID following, will follow recs -Status post Actemra, remdesivir, Rocephin, Zithromax -Continue Decadron. 5. Sepsis. Patient meets criteria given the tachycardia, tachypnea and diagnosis of bilateral pneumonia. - managmeent as above 6. COVID-19 infection. Covid PCR + 10/09/2020 - management as above Hospital Course to date. 10/10/2020. Patient currently with high flow nasal cannula with oxygen flow rate of 40 and FiO2 90%. ID consulted. Await COVID-19 testing. Start dexamethasone 6 mg IV daily. Patient may need higher dose given obesity. Await ID recommendations regarding remdesivir as well as Covid testing. Patient with significantly elevated inflammatory markers D-dimer greater than 10,000, jaylin ritin 8000, LDH 1500 and CRP 20. Check CTA of chest when patient medically stable. Start treatment dose of Lovenox given the extremely high D-dimer. Hold on IV antibiotics given the normal procalcitonin. 10/11/2020. Patient currently with HFNC of 30 L with FiO2 of 70%. Covid PCR + 10/09/2020. Continue dexamethasone and remdesivir for 10 days and 5 days respectively. Actemra was given because of high CRP and HFNC. Continue to monitor anti-inflammatory markers of ferritin, D-dimer, CRP and LDH. Full dose anticoagulation given extremely high D-dimer. Continue prone positioning as available. CTA of chest when patient more stable. 10/12/2020. Patient currently with HFNC 30 L / 100%. Continue dexamethasone and remdesivir per ID recommendations continue to trend anti-inflammatory markers. Continue Full dose anticoagulation given extremely high D-dimer. Continue prone positioning as available. CTA of chest when patient more stable. 10/13/2020. Patient currently with HFNC 30 L / 100%. Continue dexamethasone and remdesivir per ID recommendations continue to trend anti-inflammatory markers. S/p Actemra x1 given high CRP and HFNC. Continue Full dose anticoagulation given extremely high D-dimer. Continue prone positioning as available. CTA of chest when patient more stable. 10/14/2020. Patient still with HFNC 30 L / 100%. Continue dexamethasone and remdesivir per ID recommendations continue to trend anti-inflammatory markers. S/p Actemra x1 given high CRP and HFNC. Continue Full dose anticoagulation with Lovenox given extremely high D-dimer. Continue prone positioning as available. CTA of chest when patient more stable. 10/15/2020: Patient currently on HFNC 20L/ 60%. Continue covid standard therapies. trending anti inflammatory markers q48hrs. Full dose anticoagulation disconitnued. Switched to DVT prophylaxis dosing. ordered physical therapy. patient appears strong enough to mobilize within room. Infectious disease following. Pulmonary consulted. 10/16/2020: Discussed with IMCU Rn this AM. Will attempt to wean off of HFNC as patient/saturations tolerate. Okay with sat > 90 as long as remainder of vitals stable. Advised to do trial with nasal cannula if patient tolerates can d/c HFNC. 10/17/2020: Patient successfully transitioned to 4 L nasal cannula. He can be downgraded to a medical floor. Will work with adult protective caseworker for set up of likely home oxygen. Will work on discharge plan with CM. Anticipate DC in the next 1 to 2 days. 10/18/2020: On 4 L NC. will transition to NOAC anticoagulation. CM consult placed for home oxygen. Patient can be downgraded to floor 10/19/2020: Awaiting PT evaluation. Discharge pending. History Interval history: Doing well on encounter today. Hospitalist Physical - Physical exam Narrative exam: Physical Exam: Constitutional: Alert, cooperative. No acute distress Head, Ears, Nose: Normocephalic, atraumatic. External ears, nose normal Eyes: Conjunctivae/corneas clear. No icterus. No ptosis. Neck: Supple, no meningeal signs Oral: dentition fair, no thrush Cardiovascular: S1, S2 normal. Respiratory: Good air entry, imrpovement in lung exam. 4 L nasal cannula in place GI: Soft, non-tender; bowel sounds normal. No peritoneal signs. Musculoskeletal: No pedal edema, no cyanosis. Skin: No rash or abscess Hem/Lymphatic: No palpable cervical or supraclavicular nodes. No lymphangitis Psych: Mood ok. Affect normal Neurological: Awake, alert, oriented. No gross abnormality - Constitutional Vitals: Temp Pulse Resp BP Pulse Ox 98.8 F 95 H 20 150/96 95 10/19/20 05:22 10/19/20 12:00 10/19/20 12:00 10/19/20 05:22 10/19/20 12:00 General appearance: Present: mild distress, obese HEART Score - HEART Score Troponin: Troponin T < 0.010 ng/mL (0.00-0.029) 10/09/20 19:41 Results - Labs CBC & Chem 7: 10/18/20 13:39 10/19/20 07:22 Labs: Laboratory Last Values WBC 7.4 K/mm3 (4.5-11.0) 10/18/20 13:39 RBC 4.93 M/mm3 (3.65-5.03) 10/18/20 13:39 Hgb 14.0 gm/dl (11.8-15.2) 10/18/20 13:39 Hct 43.3 % (35.5-45.6) 10/18/20 13:39 MCV 88 fl (84-94) 10/18/20 13:39 MCH 28 pg (28-32) 10/18/20 13:39 MCHC 32 % (32-34) 10/18/20 13:39 RDW 14.4 % (13.2-15.2) 10/18/20 13:39 Plt Count 332 K/mm3 (140-440) 10/18/20 13:39 Add Manual Diff Complete 10/18/20 04:46 Total Counted 100 10/18/20 04:46 Seg Neuts % (Manual) 77.0 % (40.0-70.0) H 10/18/20 04:46 Band Neutrophils % 1.0 % 10/18/20 04:46 Lymphocytes % (Manual) 6.0 % (13.4-35.0) L 10/18/20 04:46 Reactive Lymphs % (Man) 1.0 % 10/18/20 04:46 Monocytes % (Manual) 9.0 % (0.0-7.3) H 10/18/20 04:46 Eosinophils % (Manual) 2.0 % (0.0-4.3) 10/18/20 04:46 Metamyelocytes % 2.0 % 10/18/20 04:46 Myelocytes % 2.0 % 10/18/20 04:46 Nucleated RBC % 1.0 % (0.0-0.9) H 10/18/20 04:46 Seg Neutrophils # Man 7.5 K/mm3 (1.8-7.7) 10/18/20 04:46 Band Neutrophils # 0.1 K/mm3 10/18/20 04:46 Lymphocytes # (Manual) 0.6 K/mm3 (1.2-5.4) L 10/18/20 04:46 Abs React Lymphs (Man) 0.1 K/mm3 10/18/20 04:46 Monocytes # (Manual) 0.9 K/mm3 (0.0-0.8) H 10/18/20 04:46 Eosinophils # (Manual) 0.2 K/mm3 (0.0-0.4) 10/18/20 04:46 Basophils # (Manual) 0.0 K/mm3 (0.0-0.1) 10/18/20 04:46 Metamyelocytes # 0.2 K/mm3 10/18/20 04:46 Myelocytes # 0.2 K/mm3 10/18/20 04:46 Promyelocytes # 0.0 K/mm3 10/18/20 04:46 Blast Cells # 0.0 K/mm3 10/18/20 04:46 WBC Morphology Not Reportable 10/18/20 04:46 Hypersegmented Neuts Not Reportable 10/18/20 04:46 Hyposegmented Neuts Not Reportable 10/18/20 04:46 Hypogranular Neuts Not Reportable 10/18/20 04:46 Smudge Cells Not Reportable 10/18/20 04:46 Toxic Granulation 1+ 10/18/20 04:46 Toxic Vacuolation Not Reportable 10/18/20 04:46 Dohle Bodies Not Reportable 10/18/20 04:46 Pelger-Huet Anomaly Not Reportable 10/18/20 04:46 Kiya Rods Not Reportable 10/18/20 04:46 Platelet Estimate Consistent w auto 10/18/20 04:46 Clumped Platelets Not Reportable 10/18/20 04:46 Plt Clumps, EDTA Not Reportable 10/18/20 04:46 Large Platelets Not Reportable 10/18/20 04:46 Giant Platelets Not Reportable 10/18/20 04:46 Platelet Satelliting Not Reportable 10/18/20 04:46 Plt Morphology Comment Not Reportable 10/18/20 04:46 RBC Morphology Normal 10/18/20 04:46 Dimorphic RBCs Not Reportable 10/18/20 04:46 Polychromasia Not Reportable 10/18/20 04:46 Hypochromasia Not Reportable 10/18/20 04:46 Poikilocytosis Not Reportable 10/18/20 04:46 Anisocytosis Not Reportable 10/18/20 04:46 Microcytosis Not Reportable 10/18/20 04:46 Macrocytosis Not Reportable 10/18/20 04:46 Spherocytes Not Reportable 10/18/20 04:46 Pappenheimer Bodies Not Reportable 10/18/20 04:46 Sickle Cells Not Reportable 10/18/20 04:46 Target Cells Not Reportable 10/18/20 04:46 Tear Drop Cells Not Reportable 10/18/20 04:46 Ovalocytes Not Reportable 10/18/20 04:46 Helmet Cells Not Reportable 10/18/20 04:46 [place] Bodies Not Reportable 10/18/20 04:46 [place] Rings Not Reportable 10/18/20 04:46 [place] Cells Not Reportable 10/18/20 04:46 Bite Cells Not Reportable 10/18/20 04:46 Crenated Cell Not Reportable 10/18/20 04:46 Elliptocytes Not Reportable 10/18/20 04:46 Acanthocytes (Spur) Not Reportable 10/18/20 04:46 Rouleaux Not Reportable 10/18/20 04:46 Hemoglobin C Crystals Not Reportable 10/18/20 04:46 Schistocytes Not Reportable 10/18/20 04:46 Malaria parasites Not Reportable 10/18/20 04:46 Mode Bodies Not Reportable 10/18/20 04:46 Hem Pathologist Commnt No 10/18/20 04:46 PT 14.8 Sec. (12.2-14.9) 10/18/20 13:39 INR 1.10 (0.87-1.13) 10/18/20 13:39 APTT 33.8 Sec. (24.2-36.6) 10/18/20 13:39 D-Dimer 5191.50 ng/mlDDU (0-234) H 10/16/20 04:37 Sodium 136 mmol/L (137-145) L 10/19/20 07:22 Potassium 5.5 mmol/L (3.6-5.0) H 10/19/20 07:22 Chloride 97.3 mmol/L (98-107) L 10/19/20 07:22 Carbon Dioxide 26 mmol/L (22-30) 10/19/20 07:22 Anion Gap 18 mmol/L 10/19/20 07:22 BUN 20 mg/dL (9-20) 10/19/20 07:22 Creatinine 0.8 mg/dL (0.8-1.3) 10/19/20 07:22 Estimated GFR > 60 ml/min 10/19/20 07:22 BUN/Creatinine Ratio 25 % 10/19/20 07:22 Glucose 81 mg/dL (75-100) 10/19/20 07:22 Calcium 9.6 mg/dL (8.4-10.2) 10/19/20 07:22 Magnesium 2.50 mg/dL (1.7-2.3) H 10/09/20 19:41 Ferritin 4238.0 ng/mL (30.0-300.0) H 10/16/20 04:37 Total Bilirubin 0.70 mg/dL (0.1-1.2) 10/14/20 10:08 Direct Bilirubin 0.3 mg/dL (0-0.2) H 10/14/20 10:08 Indirect Bilirubin 0.4 mg/dL 10/14/20 10:08 AST 135 units/L (5-40) H 10/14/20 10:08 ALT 287 units/L (7-56) H 10/14/20 10:08 Alkaline Phosphatase 80 units/L (35-129) 10/14/20 10:08 Lactate Dehydrogenase 437 units/L (91-180) H 10/16/20 04:37 Troponin T < 0.010 ng/mL (0.00-0.029) 10/09/20 19:41 C-Reactive Protein 0.40 mg/dL (0.00-1.30) 10/16/20 04:37 Total Protein 6.6 g/dL (6.3-8.2) 10/14/20 10:08 Albumin 3.3 g/dL (3.9-5) L 10/14/20 10:08 Albumin/Globulin Ratio 1.0 % 10/14/20 10:08 Procalcitonin 0.49 ng/mL (<0.15) 10/09/20 20:13 Coronavirus (PCR) Positive (Negative) A 10/09/20 Unknown Olivera/IV: Voiding Method Urinal Active Medications - Current Medications Current Medications: Generic Name Dose Route Start Last Admin Trade Name Freq PRN Reason Stop Dose Admin Acetaminophen 650 mg 10/09/20 21:07 Acetaminophen 325 Mg Tab PO Q6H PRN Pain MILD(1-3)/Fever >100.5/NAVA Albuterol 2.5 mg 10/09/20 21:07 Albuterol 2.5 Mg/3 Ml Nebu IH Q3HRT PRN Shortness Of Breath Ascorbic Acid 500 mg 10/17/20 22:00 10/19/20 09:43 Ascorbic Acid 500 Mg Tab PO 500 mg BID LENCHO Administration Dexamethasone 8 mg 10/11/20 10:00 10/19/20 09:44 Dexamethasone 4 Mg/Ml Vial IV 10/20/20 10:01 8 mg DAILY LENCHO Administration Hydromorphone HCl 0.5 mg 10/09/20 21:07 Hydromorphone 1 Mg/1 Ml Inj IV Q12H PRN Pain , Severe (7-10) Oxycodone/Acetaminophen 1 tab 10/09/20 21:07 Oxycodone /Acetaminophen 5-325mg Tab PO Q12H PRN Pain, Moderate (4-6) Polyethylene Glycol 17 gm 10/17/20 10:26 10/18/20 13:07 Polyethylene Glycol 3350 17 Gm Powder PO 17 gm BID PRN Administration Constipation Rivaroxaban 15 mg 10/19/20 10:00 10/19/20 09:43 Rivaroxaban 10 Mg Tab PO 15 mg BIDDIAB LENCHO Administration Protocol Senna 8.8 mg 10/17/20 10:26 Sennosides Oral Liqd 8.8 Mg/5 Ml Oral Liqd PO QHS PRN Constipation Sodium Chloride 10 ml 10/09/20 22:00 10/19/20 09:45 Sodium Chloride 0.9% 10 Ml Flush Syringe IV 10 ml BID LENCHO Administration Sodium Chloride 10 ml 10/09/20 21:07 Sodium Chloride 0.9% 10 Ml Flush Syringe IV PRN PRN LINE FLUSH Zinc Sulfate 220 mg 10/17/20 22:00 10/19/20 09:43 Zinc Sulfate 220 Mg Cap PO 220 mg BID LENCHO Administration Nutrition/Malnutrition Assess - Dietary Evaluation Nutrition/Malnutrition Findings: Nutrition Notes Start: 10/15/20 08:02 Freq: Status: Active Protocol: Document 10/15/20 08:02 ELSA (Rec: 10/15/20 08:04 ELSA [id number]) Nutrition Notes Need for Assessment generated from: LOS Initial or Follow up Brief Note Subjective/Other Information Screen for LOS. Pt reports eating most of his meals. He doesn't eat as much of breakfast due to food prefrences. Pt reports no wt loss. Nutrition Intervention Change Diet Order: Add food prefrences Revisit per MD consult or patient Sign Off request:
[2020-10-19] MEDS: POLYETHYLENE GLYCOL 3350 17 GM POWDER PO PRN (16:20)
--- NOTE | 2020-10-19 20:18 | Progress Note ---
Assessment and Plan 60 YO Male with HTN, Obesity Hypoventilation Syndrome presents to ED for evaluation. Patient states that he has experienced shortness of breath over the past 2 days with persistently worsening symptoms over the past 1 day. Patient acknowledges fatigue, malaise, decreased exercise tolerance, body aches, dry cough. EMS was notified and upon arrival the patient was found to be in distress and subsequently transported to [facility] for further care and evaluation of the aforementioned symptoms. [facility] Patient was found to have a pulse oximetry of 87% on room air which is consistent with acute hypoxemic respiratory failure. Chest x-ray revealed bilateral pneumonia. The patient was found to have acidosis as well. The patient was admitted to [facility] and initiated on pneumonia protocol as well as coronavirus protocol. Patient denies fever chills chest pain, palpitations, skin rash, recent ill contacts, or known exposure to COVID-19. No prior admission for review. All medication listed at time of admission has been reconciled. Patient reports receiving 1 of 2 doses of the coronavirus vaccine. Patients barba virus PCR is Positive. Patient transfered to Telemetry. Patient is alert and awake . Patient is on 1/2 litre O2. O2 sat is 94%. No complaints of chest pain or shortness of breath. Patient is afebrile. Blood pressure is 123/84, heart rate of 95. No Leukocytosis D-dimer 6195, Ferritin >2000, LDH 525, CRP 0.70. COVID-19 positive. CXR (10/09/20) showed Significant interval worsening of patchy bilateral pulmonary opacities, compared to 10/01/20. Patient has angio CT of chest 10/17/20 reported Saddle pulmonary embolus with large clot burden in this patient with classic imaging features of Covid pneumonia. No evidence of right heart strain. Pneumomediastinum which is thought to be most likely related to tracheobronchial injury. Correlate clinically. Medications currently are Proventil, Dexamethasone, and Rivaroxaban. - Patient Problems (1) Acute hypoxemic respiratory failure Current Visit: Yes Status: Acute Plan to address problem: Patient is on O2, 1/2 litre. Continue dexamethasone. Patient is on Rivaroxaban. Albuterol inhaler 2 puffs po q 6 hours prn for shortness of breath. Recommend GI prophylaxis. (2) 2019 novel coronavirus disease (COVID-19) Current Visit: Yes Status: Acute Plan to address problem: Patient is on Dexamethasone. Patient is on Rivaroxaban. Management as per ID. (3) Atypical pneumonia Current Visit: Yes Status: Acute Plan to address problem: Antibiotics as per ID. (4) Pulmonary embolism Current Visit: Yes Status: Acute Plan to address problem: Patient is on Rivaroxaban. Subjective Date of service: 10/19/20 Principal diagnosis: Acute hypoxemic respiratory failure; COVID-19 infection; Pneumonia Interval history: 60 YO Male with HTN, Obesity Hypoventilation Syndrome presents to ED for evaluation. Patient states that he has experienced shortness of breath over the past 2 days with persistently worsening symptoms over the past 1 day. Patient acknowledges fatigue, malaise, decreased exercise tolerance, body aches, dry cough. EMS was notified and upon arrival the patient was found to be in distress and subsequently transported to [facility] for further care and evaluation of the aforementioned symptoms. The patient was seen and evaluated in the emergency department. Patient was found to have a pulse oximetry of 87% on room air which is consistent with acute hypoxemic respiratory failure. Chest x- ray revealed bilateral pneumonia. The patient was found to have acidosis as well. The patient was admitted to IM and initiated on pneumonia protocol as well as coronavirus protocol. Patient denies fever chills chest pain, palpitations, skin rash, recent ill contacts, or known exposure to COVID-19. No prior admission for review. All medication listed at time of admission has been reconciled. Patient reports receiving 1 of 2 doses of the coronavirus vaccine. Patients barba virus PCR is Positive. Patient transfered to Telemetry. Patient is alert and awake . Patient is on 1/2 litre O2. O2 sat is 94%. No comp laints of chest pain or shortness of breath. Patient is afebrile. Blood pressure is 123/84, heart rate of 95. No Leukocytosis D-dimer 6195, Ferritin >2000, LDH 525, CRP 0.70. COVID-19 positive. CXR (10/09/20) showed Significant interval worsening of patchy bilateral pulmonary opacities, compared to 10/01/20. Patient has angio CT of chest 10/17/20 reported Saddle pulmonary embolus with large clot burden in this patient with classic imaging features of Covid pneumonia. No evidence of right heart strain. Pneumomediastinum which is thought to be most likely related to tracheobronchial injury. Correlate clinically. Medications currently are Proventil, Dexamethasone, and Rivaroxaban. Objective Vital Signs - 12hr 10/19/20 10/19/20 10/19/20 10:00 11:07 11:08 Temperature Pulse Rate 92 H 84 Pulse Rate [ From Monitor] Respiratory Rate Blood Pressure O2 Sat by Pulse 94 94 95 Oximetry 10/19/20 10/19/20 12:00 16:18 Temperature 98.4 F Pulse Rate 95 H Pulse Rate [ 95 H From Monitor] Respiratory 20 18 Rate Blood Pressure 123/84 O2 Sat by Pulse 95 94 Oximetry Constitutional: no acute distress, alert, other (middle aged obese male with mildly increased respiratory effort at rest) Eyes: non-icteric ENT: oropharynx moist Neck: supple, no lymphadenopathy, no JVD Effort: mildly labored Ascultation: Bilateral: rhonchi Percussion: Bilateral: not dull Cardiovascular: regular rate and rhythm Gastrointestinal: normoactive bowel sounds, soft, non-tender, non-distended Integumentary: normal Extremities: no cyanosis, no edema, pulses normal, no ischemia or petechiae Neurologic: normal mental status, non-focal exam, pupils equal and round, motor strength normal and Psychiatric: mood appropriate, affect normal CBC and BMP: 10/18/20 13:39 10/19/20 07:22 ABG, PT/INR, D-dimer: PT/INR, D-dimer PT 14.8 Sec. (12.2-14.9) 10/18/20 13:39 INR 1.10 (0.87-1.13) 10/18/20 13:39 D-Dimer 5191.50 ng/mlDDU (0-234) H 10/16/20 04:37 Abnormal lab findings: Abnormal Labs 10/09/20 10/09/20 10/09/20 19:41 19:41 20:13 WBC RBC MCH MCHC RDW 12.9 L Seg Neuts % (Manual) 80.0 H Lymphocytes % (Manual) 10.0 L Monocytes % (Manual) Nucleated RBC % Seg Neutrophils # Man Lymphocytes # (Manual) 0.9 L Monocytes # (Manual) D-Dimer > 12163 H Sodium 131 L Potassium Chloride 96.2 L Carbon Dioxide 19 L BUN 23 H Creatinine Glucose 125 H Calcium Magnesium 2.50 H Ferritin Total Bilirubin 2.90 H Direct Bilirubin AST 57 H ALT Lactate Dehydrogenase C-Reactive Protein Albumin 3.3 L Coronavirus (PCR) 10/09/20 10/09/20 10/09/20 20:13 20:13 Unknown WBC RBC MCH MCHC RDW Seg Neuts % (Manual) Lymphocytes % (Manual) Monocytes % (Manual) Nucleated RBC % Seg Neutrophils # Man Lymphocytes # (Manual) Monocytes # (Manual) D-Dimer Sodium Potassium Chloride Carbon Dioxide BUN Creatinine Glucose 118 H Calcium Magnesium Ferritin 8223.0 H Total Bilirubin Direct Bilirubin AST ALT Lactate Dehydrogenase 1517 H C-Reactive Protein 20.80 H Albumin Coronavirus (PCR) Positive A 10/10/20 10/10/20 10/10/20 04:48 04:48 16:32 WBC RBC MCH MCHC RDW 12.7 L Seg Neuts % (Manual) Lymphocytes % (Manual) 6.0 L Monocytes % (Manual) Nucleated RBC % Seg Neutrophils # Man Lymphocytes # (Manual) 0.4 L Monocytes # (Manual) D-Dimer Sodium 132 L 130 L Potassium Chloride 97.5 L Carbon Dioxide 21 L 16 L BUN 21 H Creatinine 0.6 L Glucose 210 H 199 H Calcium 8.2 L Magnesium Ferritin Total Bilirubin 2.00 H Direct Bilirubin AST 51 H ALT Lactate Dehydrogenase C-Reactive Protein Albumin 3.0 L 2.7 L Coronavirus (PCR) 10/11/20 10/11/20 10/12/20 04:14 04:14 05:21 WBC 12.6 H RBC MCH MCHC RDW 12.9 L Seg Neuts % (Manual) 91.0 H Lymphocytes % (Manual) 6.0 L Monocytes % (Manual) Nucleated RBC % Seg Neutrophils # Man 11.5 H Lymphocytes # (Manual) 0.8 L Monocytes # (Manual) D-Dimer Sodium 135 L Potassium 5.2 H Chloride Carbon Dioxide 19 L BUN Creatinine 0.7 L 0.7 L Glucose 127 H 105 H Calcium 8.0 L Magnesium Ferritin Total Bilirubin Direct Bilirubin AST 47 H 76 H ALT 115 H Lactate Dehydrogenase C-Reactive Protein Albumin 3.2 L 2.9 L Coronavirus (PCR) 10/13/20 10/14/20 10/14/20 04:48 10:08 10:08 WBC RBC MCH MCHC RDW Seg Neuts % (Manual) Lymphocytes % (Manual) Monocytes % (Manual) Nucleated RBC % Seg Neutrophils # Man Lymphocytes # (Manual) Monocytes # (Manual) D-Dimer 6195.23 H Sodium 136 L Potassium Chloride Carbon Dioxide BUN Creatinine 0.6 L Glucose 103 H Calcium Magnesium Ferritin > 2000.0 H Total Bilirubin Direct Bilirubin AST 151 H ALT 228 H Lactate Dehydrogenase C-Reactive Protein Albumin 3.2 L Coronavirus (PCR) 10/14/20 10/14/20 10/15/20 10:08 10:08 05:39 WBC 13.1 H RBC MCH MCHC RDW Seg Neuts % (Manual) Lymphocytes % (Manual) 3.0 L Monocytes % (Manual) Nucleated RBC % Seg Neutrophils # Man 12.2 H Lymphocytes # (Manual) 0.4 L Monocytes # (Manual) D-Dimer Sodium Potassium Chloride Carbon Dioxide BUN Creatinine Glucose Calcium Magnesium Ferritin Total Bilirubin Direct Bilirubin 0.3 H AST 135 H ALT 287 H Lactate Dehydrogenase 525 H C-Reactive Protein Albumin 3.3 L Coronavirus (PCR) 10/15/20 10/16/20 10/16/20 05:39 04:37 04:37 WBC 13.5 H RBC MCH MCHC RDW Seg Neuts % (Manual) 82.0 H Lymphocytes % (Manual) 8.0 L Monocytes % (Manual) 8.0 H Nucleated RBC % Seg Neutrophils # Man 11.1 H Lymphocytes # (Manual) 1.1 L Monocytes # (Manual) 1.1 H D-Dimer 5191.50 H Sodium Potassium 5.3 H Chloride Carbon Dioxide BUN 21 H Creatinine Glucose 113 H Calcium Magnesium Ferritin Total Bilirubin Direct Bilirubin AST ALT Lactate Dehydrogenase C-Reactive Protein Albumin Coronavirus (PCR) 10/16/20 10/16/20 10/18/20 04:37 04:37 04:46 WBC RBC 5.09 H MCH 27 L MCHC 31 L RDW Seg Neuts % (Manual) 77.0 H Lymphocytes % (Manual) 6.0 L Monocytes % (Manual) 9.0 H Nucleated RBC % 1.0 H Seg Neutrophils # Man Lymphocytes # (Manual) 0.6 L Monocytes # (Manual) 0.9 H D-Dimer Sodium 135 L Potassium 5.3 H Chloride Carbon Dioxide BUN 26 H Creatinine Glucose 121 H Calcium Magnesium Ferritin 4238.0 H Total Bilirubin Direct Bilirubin AST ALT Lactate Dehydrogenase 437 H C-Reactive Protein Albumin Coronavirus (PCR) 10/18/20 10/19/20 04:46 07:22 WBC RBC MCH MCHC RDW Seg Neuts % (Manual) Lymphocytes % (Manual) Monocytes % (Manual) Nucleated RBC % Seg Neutrophils # Man Lymphocytes # (Manual) Monocytes # (Manual) D-Dimer Sodium 136 L 136 L Potassium 5.6 H 5.5 H Chloride 97.3 L Carbon Dioxide BUN 21 H Creatinine Glucose 110 H Calcium Magnesium Ferritin Total Bilirubin Direct Bilirubin AST ALT Lactate Dehydrogenase C-Reactive Protein Albumin Coronavirus (PCR) CT scan - chest: report reviewed, image reviewed Prior PFT's, U/S of legs: report reviewed, image reviewed Additional Studies: DUPLEX DOPPLER LOWER EXTREMITY VEINS, BILATERAL 10/17/20 INDICATION / CLINICAL INFORMATION: swelling. TECHNIQUE: Duplex doppler imaging was performed through the veins of both lower e xtremities using venous compression and other maneuvers. COMPARISON: None available. FINDINGS: RIGHT COMMON FEMORAL VEIN: Negative. RIGHT FEMORAL VEIN: Negative. RIGHT POPLITEAL VEIN: Negative. RIGHT CALF VEINS: Negative. LEFT COMMON FEMORAL VEIN: Negative. LEFT FEMORAL VEIN: Negative. LEFT POPLITEAL VEIN: Negative. LEFT CALF VEINS: Negative. ADDITIONAL FINDINGS: None. IMPRESSION: 1. No sonographic evidence for DVT in either lower extremity. CT angio chest INDICATION / CLINICAL INFORMATION: Hypoxemic respiratory failure 100 ML OMNI 350 . TECHNIQUE: Axial CT images were obtained through the chest after injection of IV contrast. 3 plane MIP and/or 3D reconstructions were produced. All CT scans at this location are performed using CT dose reduction for ALARA by means of automated exposure control. COMPARISON: X-ray 10/09/2020 FINDINGS: PULMONARY ARTERIES: Saddle pulmonary embolus with extension to the distal pulmonary arteries. Large clot burden. HEART: RV to LV ratio is normal without evidence of right heart strain. MEDIASTINUM / ROSANGELA: Pneumomediastinum which extends slightly along the b ronchovascular bundles. LUNGS: Groundglass opacities involving all 5 lobes of the lung demonstrating a peripheral subpleural predilection. No pleural effusion. No pneumothorax. ADDITIONAL FINDINGS: None. UPPER ABDOMEN: No acute findings. SKELETAL STRUCTURES: No significant osseous abnormality. IMPRESSION: 1. Saddle pulmonary embolus with large clot burden in this patient with classic imaging features of Covid pneumonia. No evidence of right heart strain. 2. Pneumomediastinum which is thought to be most likely related to tracheobronchial injury. Correlate clinically. Allied health notes reviewed: nursing
[2020-10-20 07:26] LABS: Hematocrit 41.1 % (35.5-45.6); Mean Corpuscular HGB Conc 32 % (32-34); Mean Corpuscular Volume 87 fl (84-94); Platelet Count 271 K/mm3 (140-440); Red Cell Distribution Width 14.7 % (13.2-15.2)
--- NOTE | 2020-10-20 08:34 | Discharge Summary ---
Providers - Providers Date of Admission: 10/09/20 21:12 Date of discharge: 10/20/20 Attending physician: KATARZYNA PRIEST MD 10/09/20 21:12 Consult to Physician [CONS] Routine Comment: Consulting Provider: RADHA WHITMAN Physician Instructions: Reason For Exam: pui 10/15/20 17:11 Physical Therapy Evaluation and Treat [CONS] Routine Comment: Reason For Exam: weakness, eval and tx 10/15/20 17:20 Consult to Physician [CONS] Routine Comment: Consulting Provider: BERNARDO MARTINEZ Physician Instructions: Reason For Exam: covid pna, on high flow 10/17/20 13:52 Consult to Case Management [CONS] Routine Services Needed at Discharge: Other Home Health Services Home O2 Notified:: CM Comment:: discharge planning. likely home oxygen. 10/19/20 16:31 Consult to Case Management [CONS] Routine Services Needed at Discharge: Home O2 Other Notified:: CM Comment:: home health care PT and home oxygen needed. Primary care physician: ELDER ALEJANDRA Hospitalization Reason for admission: shortness of breath Condition: Fair Hospital course: HPI 60 YO Male with HTN, Obesity Hypoventilation Syndrome presents to ED for evaluation. Patient reports "I am short of breath". Patient states that he has experienced shortness of breath over the past 2 days with persistently worsening symptoms over the past 1 day. Patient acknowledges fatigue, malaise, decreased exercise tolerance, body aches, dry cough. EMS was notified and upon arrival the patient was found to be in distress and subsequently transported to [facility] for further care and evaluation of the aforementioned symptoms. The patient was seen and evaluated in the emergency department. All lab and image studies reviewed. Patient was found to have a pulse oximetry of 87% on room air which is consistent with acute hypoxemic respiratory failure. Chest x-ray revealed bilateral pneumonia. The patient was found to have acidosis as well. The patient was admitted to [facility] and initiated on pneumonia protocol as well as coronavirus protocol. Patient denies fever chills chest pain, palpitations, skin rash, recent ill contacts, or known exposure to COVID-19. No prior admission for review. All medication listed at time of admission has been reconciled. Patient reports receiving 1 of 2 doses of the coronavirus vaccine. Assessment and plan: 1. Acute hypoxemic respiratory failure -multifactorial COVID PNA and PE Continue with nasal cannula at 4 L titrate down as patient tolerates -Continue with dexamethasone x10 days, remdesivir x5 days, status post Actemra, Continue full dose anticoagulation, will consider CTA chest Inflammatory markers every 48 hours Pulmonary consult placed, will follow recs 2. Pulmonary Embolism - saddle PE demonstrated on CTA - currently on therapeutic dosing lovenox 3. Pneumomediastium - noted on CTA Chest -Supportive care 4. COVID pneumonia. - management as above ID following, will follow recs -Status post Actemra, remdesivir, Rocephin, Zithromax -Continue Decadron. 5. Sepsis. Patient meets criteria given the tachycardia, tachypnea and diagnosis of bilateral pneumonia. - managmeent as above 6. COVID-19 infection. Covid PCR + 10/09/2020 - management as above Hospital Course to date. 10/10/2020. Patient currently with high flow nasal cannula with oxygen flow rate of 40 and FiO2 90%. ID consulted. Await COVID-19 testing. Start dexamethasone 6 mg IV daily. Patient may need higher dose given obesity. Await ID recommendations regarding remdesivir as well as Covid testing. Patient with significantly elevated inflammatory markers D-dimer greater than 10,000, ferritin 8000, LDH 1500 and CRP 20. Check CTA of chest when patient medically stable. Start treatment dose of Lovenox given the extremely high D-dimer. Hold on IV antibiotics given the normal procalcitonin. 10/11/2020. Patient currently with HFNC of 30 L with FiO2 of 70%. Covid PCR + 10/09/2020. Continue dexamethasone and remdesivir for 10 days and 5 days respectively. Actemra was given because of high CRP and HFNC. Continue to monitor anti-inflammatory markers of ferritin, D-dimer, CRP and LDH. Full dose anticoagulation given extremely high D-dimer. Continue prone positioning as available. CTA of chest when patient more stable. 10/12/2020. Patient currently with HFNC 30 L / 100%. Continue dexamethasone and remdesivir per ID recommendations continue to trend anti-inflammatory markers. Continue Full dose anticoagulation given extremely high D-dimer. Continue prone positioning as available. CTA of chest when patient more stable. 10/13/2020. Patient currently with HFNC 30 L / 100%. Continue dexamethasone and remdesivir per ID recommendations continue to trend anti-inflammatory markers. S/p Actemra x1 given high CRP and HFNC. Continue Full dose anticoagulation given extremely high D-dimer. Continue prone positioning as available. CTA of chest when patient more stable. 10/14/2020. Patient still with HFNC 30 L / 100%. Continue dexamethasone and remdesivir per ID recommendations continue to trend anti-inflammatory markers. S/p Actemra x1 given high CRP and HFNC. Continue Full dose anticoagulation with Lovenox given extremely high D-dimer. Continue prone positioning as available. CTA of chest when patient more stable. 10/15/2020: Patient currently on HFNC 20L/ 60%. Continue covid standard therap ies. trending anti inflammatory markers q48hrs. Full dose anticoagulation disconitnued. Switched to DVT prophylaxis dosing. ordered physical therapy. patient appears strong enough to mobilize within room. Infectious disease following. Pulmonary consulted. 10/16/2020: Discussed with [facility] Rn this AM. Will attempt to wean off of HFNC as patient/saturations tolerate. Okay with sat > 90 as long as remainder of vitals stable. Advised to do trial with nasal cannula if patient tolerates can d/c HFNC. 10/17/2020: Patient successfully transitioned to 4 L nasal cannula. He can be downgraded to a medical floor. Will work with case finishing machine adjuster for set up of likely home oxygen. Will work on discharge plan with CM. Anticipate DC in the next 1 to 2 days. 10/18/2020: On 4 L NC. will transition to NOAC anticoagulation. CM consult placed for home oxygen. Patient can be downgraded to floor 10/19/2020: Awaiting PT evaluation. Discharge pending. 10/20/2020: Placed patient discharge today. Alll covid standard therapies completed. He completed his dexamethasone 10 day courrse so no additional steroids needed. Plan to discharge home with prescriptions for Xarelto 15 mg po bid x 21 day total course to be completed by 11/08 and Xarelto 20 mg po daily to be commenced on 11/09. Patient will also be sent home on as needed albuterol inhaler. Home health care PT being set up by CM and referral for home oxygen c oncentrator sent. He was instructed to follow up with his primary care physician in 3-5 days. cc: Dr. Elder Alejandra Disposition: 06 HOME HEALTH CARE SERVICE Final Discharge Diagnosis (Prints w/discharge instructions): Acute hypoxic respiratory failure due to COVID Pneumonia and Pulmonary Embolism - Discharge Diagnoses (1) Thrombocytopenia Status: Acute (2) 2019 novel coronavirus disease (COVID-19) Status: Acute (3) Acute hypoxemic respiratory failure Status: Acute (4) Pneumonia Status: Acute (5) Pulmonary embolism Status: Acute (6) Sepsis Status: Acute Core Measure Documentation - Palliative Care Palliative Care/ Comfort Measures: Not Applicable - Core Measures Any of the following diagnoses?: none Exam - Physical Exam Narrative exam: Physical Exam: Constitutional: Alert, cooperative. No acute distress Head, Ears, Nose: Normocephalic, atraumatic. External ears, nose normal Eyes: Conjunctivae/corneas clear. No icterus. No ptosis. Neck: Supple, no meningeal signs Oral: dentition fair, no thrush Cardiovascular: S1, S2 normal. Respiratory: Good air entry, imrpovement in lung exam. 4 L nasal cannula in place GI: Soft, non-tender; bowel sounds normal. No peritoneal signs. Musculoskeletal: No pedal edema, no cyanosis. Skin: No rash or abscess Hem/Lymphatic: No palpable cervical or supraclavicular nodes. No lymphangitis Psych: Mood ok. Affect normal Neurological: Awake, alert, oriented. No gross abnormality - Constitutional Vitals: Temp Pulse Resp BP Pulse Ox 97.6 F 71 18 127/87 94 10/20/20 03:23 10/20/20 04:00 10/20/20 03:23 10/20/20 03:23 10/20/20 03:23 Plan Diet: regular Durable Medical Equipment Needed Upon Discharge: Oxygen Follow up with: ELDER ALEJANDRA JR, MD [Primary Care Provider] - 7 Days Prescriptions: Albuterol Mdi (or & Nicu Only) [ProAir HFA Inhaler] 2 puff IH QID PRN #8.5 gram PRN Reason: Shortness Of Breath Rivaroxaban [Xarelto] 15 mg PO BIDDIAB 19 Days #38 tablet Rivaroxaban [Xarelto] 20 mg PO QDAY 30 Days #30 tab
[2020-10-20] MEDS: RIVAROXABAN 10 MG TAB PO SCH (10:31)
[2020-10-20] MEDS: dexAMETHasone 4 MG/ML VIAL IV SCH (10:32)
[2020-10-20] MEDS: ZINC SULFATE 220 MG CAP PO SCH (10:32)
[2020-10-20] MEDS: ASCORBIC ACID 500 MG TAB PO SCH (10:32)
[2020-10-20 13:45] VITALS: BP 126/87
== END 2020-10-20 16:00 | disposition home health service (06) | DRG 871 ==
LOC: ED 17:54 → IMCU 21:12 → 3A 10-19 01:09
PROVIDERS: ADMIT Internal Medicine; ATTEND Internal Medicine
PROC: XW033E5 Introduction of Remdesivir Anti-infective into Peripheral Vein, Percutaneous Approach, New Technology Group 5 (ICD-10-PCS; principal; 2020-10-10)
DX: A41.9 Sepsis, unspecified organism (principal); U07.1 COVID-19; J12.82 Pneumonia due to coronavirus disease 2019; J96.01 Acute respiratory failure with hypoxia; I26.99 Other pulmonary embolism without acute cor pulmonale; E66.2 Morbid (severe) obesity with alveolar hypoventilation; Z68.35 Body mass index [BMI] 35.0-35.9, adult; I10 Essential (primary) hypertension; Z82.49 Family history of ischemic heart disease and other diseases of the circulatory system; D69.59 Other secondary thrombocytopenia; Z71.3 Dietary counseling and surveillance; J98.2 Interstitial emphysema
CPT/HCPCS: 36415; 71046; 71275; 80048; 80053; 80076; 82565; 82728; 82947; 83520; 83615; 83735; 84145; 84484; 85007; 85025; 85027; 85379; 85610; 85730; 86140; 93005; 93970; 94760; 99291; G0378; J1100; J1650; J3262; J7030; J7050; Q9967; U0003